=== PATIENT | male | born 1980 | race Hispanic/Latino ===

== ENCOUNTER 2019-08-25 08:10 | Inpatient (IN) | payer OTHER ==
[~2019-08-25] VITALS: Ht 167.6 cm; Wt 75.7 kg
[~2019-08-25 08:10] MED LIST: BENTYL20 MG PO; BIAXIN500 MG PO; DOLUTEGRAVIR PO; KEPPRA1000 MG PO; MYAMBUTOL400 MG PO; NOXAFIL PO; PREZCOBIX PO; TRIUMEG PO; ULTRAM50 MG PO; VASOTEC10 M1 PO; VASOTEC5 MG PO; ZOFRAN ODT4 MG PO; [UNRECOGNIZED DRUG - OTHER]
--- OUTSIDE RECORDS SUMMARY | 2019-08-25 08:13 | XMS REPORT ---
[facility] Address Unknown Phone Unavailable Care Team Providers Care Grade Teacher Name Role Phone Unavailable Unavailable Payers Payer Name Policy Type Policy Number Effective Date Expiration Date Problems This patient has no known problems. Allergies, Adverse Reactions, Alerts Allergy Name Allergy Type Status Severity Reaction(s) Onset Date Inactive Date Treating Clinician Comments No Known Allergies DA Active U 2015-12-17 00:00:00 Medications This patient has no known medications. Encounters Start Date/Time End Date/Time Encounter Type Admission Type Attending [facility] Care Department Encounter ID 2018-10-15 00:00:00 2018-10-15 00:00:00 Outpatient [facility] [id number] 2018-09-22 00:00:00 2018-09-22 00:00:00 Outpatient [facility] [id number] 2018-09-08 00:00:00 2018-09-08 00:00:00 Outpatient [facility] [id number] 2018-09-03 15:26:43 2018-09-03 15:26:43 Outpatient [facility] [id number] 2018-07-14 00:00:00 2018-07-14 00:00:00 Outpatient [facility] [id number] 2018-06-01 00:00:00 2018-06-01 00:00:00 Outpatient [facility] [id number] 2018-05-19 16:40:10 2018-05-19 16:40:10 Outpatient [facility] [id number] 2018-05-19 00:00:00 2018-05-19 00:00:00 Outpatient [facility] [id number] 2018-04-07 10:28:59 2018-04-07 10:28:59 Outpatient [facility] [id number] 2018-04-02 12:40:58 2018-04-02 12:40:58 Outpatient [facility] [id number] 2018-03-24 08:06:27 2018-03-24 08:06:27 Outpatient [facility] [id number] 2018-03-13 00:00:00 2018-03-13 00:00:00 Outpatient [facility] [id number] 2018-02-27 00:00:00 2018-02-27 00:00:00 Outpatient [facility] [id number] 2018-02-04 14:13:35 2018-02-04 14:13:35 Outpatient [facility] [id number] 2017-12-03 08:42:35 2017-12-03 08:42:35 Outpatient [facility] [id number] 2017-09-25 10:27:58 2017-09-25 10:27:58 Outpatient [facility] [id number] 2017-09-11 10:42:28 2017-09-11 10:42:28 Outpatient [facility] [id number] Results Test Description Test Time Test Comments Text Results Atomic Results Result Comments CD4 HELPER T-LYMPH 2019-06-23 15:09:00 CD4 LYMPHOCYTES (test code=CD4L) 11.8 % 30.8-58.5 RBC (test code=RBCLC) 4.32 x10E6/uL 4.14-5.80 HGB (test code=HGBLC) 11.5 g/dL 13.0-17.7 HCT (test code=HCTLC) 35.7 % 37.5-51.0 MCV (test code=MCVLC) 83 fL 79-97 MCH (test code=MCHLC) 26.6 pg 26.6-33.0 MCHC (test code=MCHCLC) 32.2 g/dL 31.5-35.7 RDW (test code=RDWLC) 16.8 % 12.3-15.4 PLT (test code=PLTLC) 104 x10E3/uL 150-450 NEUT % (test code=NT%LC) 65 % Not Estab. LYMPH % (test code=LY%LC) 24 % Not Estab. MONO % (test code=MO%LC) 9 % Not Estab. EOS % (test code=EO%LC) 2 % Not Estab. BASO % (test code=BA%LC) 0 % Not Estab. NEUT # (test code=NT#LC) 4.4 x10E3/uL 1.4-7.0 LYMPH # (test code=LY#LC) 1.6 x10E3/uL 0.7-3.1 MONO # (test code=MO#LC) 0.6 x10E3/uL 0.1-0.9 EOS # (test code=EO#LC) 0.1 x10E3/uL 0.0-0.4 BASO # (test code=BA#LC) 0.0 x10E3/uL 0.0-0.2 ABSOLUTE CD4+ CELLS (test code=CD4A) 189 /uL 359-1519 WBC CD4 (test code=WBCCD) 6.8 x10E3/uL 3.4-10.8 BASIC METABOLIC [id number] 05:39:00* Test Item Value Reference Range Comments SODIUM (test code=NA) 144 mmol/L 136-145 POTASSIUM (test code=K) 4.3 mmol/L 3.5-5.1 CHLORIDE (test code=CL) 118.0 mmol/L 98-107 CARBON DIOXIDE (test code=CO2) 20.0 mmol/L 21-32 ANION GAP (test code=GAP) 10.3 10-20 GLUCOSE (test code=GLU) 86 mg/dL 74-106 BLOOD UREA NITROGEN (test code=BUN) 21 mg/dL 7-18 GLOMERULAR FILTRATION RATE (test code=GFR) 57 mL/min >=60 Estimated GFR by using Modified MDRD formula.Chronic kidney disease is defined as either kidney damageor GFR <60 mL/min/1.73 m2 for >3 months. CREATININE (test code=CREAT) 1.40 mg/dL 0.7-1.3 BUN/CREATININE RATIO (test code=BUN/CREA) 15.2 10-20 CALCIUM (test code=CA) 8.7 mg/dL 8.5-10.1 BASIC METABOLIC [id number] 05:29:00* Test Item Value Reference Range Comments SODIUM (test code=NA) 144 mmol/L 136-145 POTASSIUM (test code=K) 4.3 mmol/L 3.5-5.1 CHLORIDE (test code=CL) 118.0 mmol/L 98-107 CARBON DIOXIDE (test code=CO2) mmol/L 21-32 ANION GAP (test code=GAP) 10-20 GLUCOSE (test code=GLU) mg/dL 74-106 BLOOD UREA NITROGEN (test code=BUN) mg/dL 7-18 GLOMERULAR FILTRATION RATE (test code=GFR) mL/min >=60 CREATININE (test code=CREAT) mg/dL 0.7-1.3 BUN/CREATININE RATIO (test code=BUN/CREA) 10-20 CALCIUM (test code=CA) mg/dL 8.5-10.1 - US RETROPERITONEAL [id number] 20:37:00 Name: ASHLEE BARNETT [facility] : 1980 Age/S: 39 / M [address] [facility] Unit #: [id number] Loc: [place] [address] Phys: Donal Yanez NP Acct: [id number] Dis Date: Status: ADM IN PHONE #: [phone] Exam Date: 06/21/20192013 FAX #: [phone] Reason: JEROME EXAMS: CPT CODE: [id number] US RETROPERITONEAL COM [id number] REASON FOR EXAM: JEROME EXAM ORDER DATE: 06/21/2019 6:49 PM Attending David: Donal Yanez NP PROCEDURE: - US RETROPERITONEAL COM FINDINGS: The right kidney measures 9.8 x 5.6 cm. The cross-sectional thickness of the right renal cortex measured 1.4 cm. The left kidney measures 11 x 4.9 cm. The cross-sectional thickness of the left renal cortex measured 1.4 cm. There is no evidence of hydronephrosis. The urinary bladder is partially contracted IMPRESSION: 3 cm left renal cyst. 0.6 cm nonobstructing left renal stone. Moderately echogenic right kidney and mildly echogenic left kidney suggestive of chronic medical renal disease at 2036 Reported and signed by: Jayjay Ortiz M.D. CC: Belkis Miranda MD; Donal Yanez NP Technologist: Tuan Mccormick Trnscb Date/Time: 06/21/2019 (2036) Alvin Orig Print D/T: S: 06/21/2019 (2039) Probe: PAGE 1 Signed Report URINALYSIS [id number] 04:13:00* Test Item Value Reference Range Comments UA COLOR (test code=COLU) YELLOW YELLOW UA APPEARANCE (test code=APPU) CLEAR CLEAR UA GLUCOSE DIPSTICK (test code=DGLUU) NEGATIVE mg/dL NEGATIVE UA BILIRUBIN DIPSTICK (test code=BILU) NEGATIVE mg/dL NEGATIVE UA KETONE DIPSTICK (test code=KETU) NEGATIVE mg/dL NEGATIVE UA SPECIFIC GRAVITY (test code=SGU) 1.022 1.001-1.035 UA BLOOD DIPSTICK (test code=SRIDHAR) 0.03 mg/dL (Trace) mg/dL NEGATIVE UA PH DIPSTICK (test code=ADAMARIS) 5.5 5.0-8.0 UA PROTEIN DIPSTICK (test code=PROU) 100 (2+) mg/dL NEGATIVE UA UROBILINIOGEN DIPSTICK (test code=URO) Normal mg/dL NEGATIVE UA NITRITE DIPSTICK (test code=NIKOLE) NEGATIVE NEGATIVE UA LEUKOCYTE ESTERASE W REFLEX (test code=LEUUR) NEGATIVE Juliano/uL NEGATIVE UA WBC (test code=WBCU) 0-5 per HPF 0-5 UA RBC (test code=RBCU) 6-10 #/HPF 0-5 UA EPITHELIAL CELLS (test code=EPIU) Rare (0-1/hpf) per HPF FEW UA BACTERIA (test code=BACU) NONE SEEN #/HPF NONE UA MUCUS (test code=MUCU) FEW #/LPF FEW Urine Source? Clean [id number] 01:56:00* Test Item Value Reference Range Comments D-DIMER (test code=DDIMER) 391.00 ng/mLFEU 0-500 Clinical Cut-off value for D- Dimer is 500 ng/mL FEU. Comment: The [employer] D-Dimer assay is intended for use asan aid in the diagnosis of venous thromboembolism (VTE)[deep vein thrombosis (DVT) or pulmonary embolism (PE)].The measurement of D-Dimer should not be used as an aid inthe diagnosis of VTE, in patient with: -Therapeutic dose anticoagulant therapy for >24 hours -Fibrinolytic therapy within previous 7 days -Trauma or surgery within previous 4 weeks -Disseminated malignancies - Aortic aneurysm -Sepsis, severe infections, pneumonia, severe skin infections -Liver cirrhosis - COMPREHENSIVE METABOLIC [id number] 01:51:00* Test Item Value Reference Range Comments SODIUM (test code=NA) 139 mmol/L 136-145 POTASSIUM (test code=K) 4.2 mmol/L 3.5-5.1 CHLORIDE (test code=CL) 111.0 mmol/L 98-107 CARBON DIOXIDE (test code=CO2) 23.0 mmol/L 21-32 ANION GAP (test code=GAP) 9.2 10-20 GLUCOSE (test code=GLU) 101 mg/dL 74-106 BLOOD UREA NITROGEN (test code=BUN) 38 mg/dL 7-18 GLOMERULAR FILTRATION RATE (test code=GFR) 31 mL/min >=60 Estimated GFR by using Modified MDRD formula.Chronic kidney disease is defined as either kidney damageor GFR <60 mL/min/1.73 m2 for >3 months. CREATININE (test code=CREAT) 2.40 mg/dL 0.7-1.3 BUN/CREATININE RATIO (test code=BUN/CREA) 16.2 10-20 TOTAL PROTEIN (test code=PROT) 8.3 gram/dL 6.4-8.2 ALBUMIN (test code=ALB) 3.3 g/dL 3.4-5.0 GLOBULIN (test code=GLOB) 5.0 gram/dL 2.7-4.2 ALBUMIN/GLOBULIN RATIO (test code=A/G) 0.7 0.75-1.50 CALCIUM (test code=CA) 8.9 mg/dL 8.5-10.1 BILIRUBIN TOTAL (test code=BILT) 0.40 mg/dL 0.0-1.0 SGOT/AST (test code=AST) 20 IUnit/L 15-37 SGPT/ALT (test code=ALT) 24 IUnit/L 12-78 ALKALINE PHOSPHATASE TOTAL (test code=ALKP) 118 IUnit/L 45-117 Note change in reference range due to change in reagent. COMPREHENSIVE METABOLIC [id number] 01:50:00* Test Item Value Reference Range Comments SODIUM (test code=NA) 139 mmol/L 136-145 POTASSIUM (test code=K) 4.2 mmol/L 3.5-5.1 CHLORIDE (test code=CL) 111.0 mmol/L 98-107 CARBON DIOXIDE (test code=CO2) mmol/L 21-32 ANION GAP (test code=GAP) 10-20 GLUCOSE (test code=GLU) mg/dL 74-106 BLOOD UREA NITROGEN (test code=BUN) mg/dL 7-18 GLOMERULAR FILTRATION RATE (test code=GFR) mL/min >=60 CREATININE (test code=CREAT) mg/dL 0.7-1.3 BUN/CREATININE RATIO (test code=BUN/CREA) 10-20 TOTAL PROTEIN (test code=PROT) gram/dL 6.4-8.2 ALBUMIN (test code=ALB) g/dL 3.4-5.0 GLOBULIN (test code=GLOB) gram/dL 2.7-4.2 ALBUMIN/GLOBULIN RATIO (test code=A/G) 0.75-1.50 CALCIUM (test code=CA) mg/dL 8.5-10.1 BILIRUBIN TOTAL (test code=BILT) mg/dL 0.0-1.0 SGOT/AST (test code=AST) IUnit/L 15-37 SGPT/ALT (test code=ALT) IUnit/L 12-78 ALKALINE PHOSPHATASE TOTAL (test code=ALKP) IUnit/L 45-117 CBC W/AUTO [id number] 01:30:00* Test Item Value Reference Range Comments WHITE BLOOD CELL (test code=WBC) 9.6 K/mm3 4.5-12.5 RED BLOOD CELL (test code=RBC) 4.98 mill/mm3 4.0-5.8 HEMOGLOBIN (test code=HGB) 13.0 gram/dL 13.0-17.5 HEMATOCRIT (test code=HCT) 40.1 % 42.0-52.0 MEAN CELL VOLUME (test code=MCV) 80.5 fL 80-98 MEAN CELL HGB (test code=MCH) 26.1 picogram 27.0-33.0 MEAN CELL HGB CONCETRATION (test code=MCHC) 32.4 gram/dL 33.0-36.0 RED CELL DISTRIBUTION WIDTH (test code=RDW) 15.8 % 11.6-16.2 RED CELL DISTRIBUTION WIDTH SD (test code=RDW-SD) 45.6 fL 37.0-51.0 PLATELET COUNT (test code=PLT) 133 K/mm3 150-450 MEAN PLATELET VOLUME (test code=MPV) 10.8 fL 6.7-11.0 NEUTROPHIL % (test code=NT%) 62.8 % 39.0-69.0 IMMATURE GRANULOCYTE % (test code=IG%) 0.6 % 0.0-5.0 LYMPHOCYTE % (test code=LY%) 23.3 % 25.0-55.0 MONOCYTE % (test code=MO%) 10.8 % 0.0-10.0 EOSINOPHIL % (test code=EO%) 2.2 % 0.0-5.0 BASOPHIL % (test code=BA%) 0.3 % 0.0-1.0 NUCLEATED RBC % (test code=NRBC%) 0.0 % 0-0 NEUTROPHIL # (test code=NT#) 6.00 K/mm3 1.8-7.7 IMMATURE GRANULOCYTE # (test code=IG#) 0.06 x10 3/uL 0-0.03 LYMPHOCYTE # (test code=LY#) 2.23 K/mm3 1.0-5.0 MONOCYTE # (test code=MO#) 1.03 K/mm3 0-0.8 EOSINOPHIL # (test code=EO#) 0.21 K/mm3 0.0-0.5 BASOPHIL # (test code=BA#) 0.03 K/mm3 0.0-0.2 NUCLEATED RBC # (test code=NRBC#) 0.00 K/mm3 0.0-0.1 MANUAL DIFF REQUIRED (test code=MDIFF) NO CBC W/AUTO [id number] 01:27:00* Test Item Value Reference Range Comments WHITE BLOOD CELL (test code=WBC) K/mm3 4.5-12.5 RED BLOOD CELL (test code=RBC) mill/mm3 4.0-5.8 HEMOGLOBIN (test code=HGB) 13.0 gram/dL 13.0-17.5 HEMATOCRIT (test code=HCT) % 42.0-52.0 MEAN CELL VOLUME (test code=MCV) fL 80-98 MEAN CELL HGB (test code=MCH) picogram 27.0-33.0 MEAN CELL HGB CONCETRATION (test code=MCHC) gram/dL 33.0-36.0 RED CELL DISTRIBUTION WIDTH (test code=RDW) % 11.6-16.2 RED CELL DISTRIBUTION WIDTH SD (test code=RDW-SD) fL 37.0-51.0 PLATELET COUNT (test code=PLT) K/mm3 150-450 MEAN PLATELET VOLUME (test code=MPV) fL 6.7-11.0 NEUTROPHIL % (test code=NT%) % 39.0-69.0 IMMATURE GRANULOCYTE % (test code=IG%) % 0.0-5.0 LYMPHOCYTE % (test code=LY%) % 25.0-55.0 MONOCYTE % (test code=MO%) % 0.0-10.0 EOSINOPHIL % (test code=EO%) % 0.0-5.0 BASOPHIL % (test code=BA%) % 0.0-1.0 NEUTROPHIL # (test code=NT#) K/mm3 1.8-7.7 LYMPHOCYTE # (test code=LY#) K/mm3 1.0-5.0 MONOCYTE # (test code=MO#) K/mm3 0-0.8 EOSINOPHIL # (test code=EO#) K/mm3 0.0-0.5 BASOPHIL # (test code=BA#) K/mm3 0.0-0.2 - XR SHOULDER 2 + V [id number] 01:06:00 FAX: Sendy Gutierrez MD [phone] [place]: St: REG Name: Steph WOODASHLEE [facility] : [birth year] Age/S: 39/M [address] [facility] Unit #: [id number] Loc: [place] [address] Phys: Sendy Gutierrez MD Acct: [id number] Dis Date: Status: REG ER PHONE #: [phone] Exam Date: 06/21/2019 0020 FAX #: [phone] Reason: pain EXAMS: CPT CODE: [id number] XR SHOULDER 2 + [place] RT [id number] HISTORY: Pain Location: C3 FINDINGS: 3 images of the right shoulder are provided. No acute fracture, dislocation, or other acute osseous abnormality is d emonstrated. IMPRESSION: 1. No acute f racture. No other acute osseous abnormality. at 0106 Reported and s igned by: Saturnino Brito MD CC: Sendy Gutierrez MD Technologist: Chichi Jarquin Trnscrd Date/Time/By: 06/21/2019 (0106) : By: [email or web address] Orig Print D/T: S: 06/21/2019 (0101) PAGE 1 Signed Report
[2019-08-25] MEDS ORDERED: ACETAMINOPHEN 325 MG TAB ONE (08:59)
[2019-08-25] MEDS ORDERED: KETOROLAC TROMETHAMINE 60 MG/2 ML VIAL ONE (09:00)
[2019-08-25] MEDS ORDERED: ONDANSETRON HCL 4 MG ORAL DISINTEGRATING TAB ONE (09:00)
[2019-08-25] MEDS ORDERED: ONDANSETRON HCL 4 MG ORAL DISINTEGRATING TAB PO ONE (09:30)
--- NOTE | 2019-08-25 09:43 | Diagnostic Imaging Report ---
EXAMINATION: CHEST 2 VIEWS INDICATION: Cough, chest pain COMPARISON: Chest radiograph of 05/09/2017 FINDINGS: LINES/TUBES:None LUNGS:The lung volumes are low. Bilateral multifocal patchy opacities, most notably at the right midlung. PLEURA:No pleural effusion or pneumothorax. MEDIASTINUM:The cardiomediastinal silhouette appears normal in size and shape. BONES/SOFT TISSUES:No acute osseous injury. ABDOMEN:No free air under the diaphragm. IMPRESSION: Low lung volumes with new bilateral multifocal patchy opacities most notably at the right midlung zone, consistent with multifocal pneumonia. Atypical/opportunistic infections are possible in this patient with history of HIV. Signed by: Regan Solis MD on 08/25/2019 9:39 AM
[2019-08-25] MEDS ORDERED: SODIUM CHLORIDE 0.9% 1000ML 1,000 ML IV ONE (09:45)
[2019-08-25] MEDS ORDERED: KETOROLAC TROMETHAMINE 60 MG/2 ML VIAL IM ONE (10:00)
[2019-08-25] MEDS ORDERED: ACETAMINOPHEN 325 MG TAB PO ONE (10:00)
[2019-08-25 10:07] LABS: INFLUENZAE A&B ANTIGEN (RAPID) NEGATIVE (NEGATIVE)
[2019-08-25 10:08] LABS: STREPTOCOCCUS GRP A ANTIGEN NEGATIVE (NEGATIVE)
[2019-08-25] MEDS ORDERED: ALBUTEROL/IPRATROPIUM 3 ML NEB NEB ONE (10:15)
[2019-08-25] MEDS ORDERED: LEVOFLOXACIN 750MG/D5W 150ML 150 ML IV ONE (10:30)
[2019-08-25] MEDS ORDERED: DEXAMETHASONE SOD PHOS 10 MG/1 ML VIAL IV ONE (10:30)
[2019-08-25] MEDS ORDERED: LEVOFLOXACIN 750MG/D5W 150ML IV SCH (11:15)
[2019-08-25 11:17] LABS: BASOPHILS # (AUTO) 0.1 (0.0-0.1); BASOPHILS % 0.3 % (0.0-1.0); EOSINOPHILS # (AUTO) 0.2 (0.0-0.4); EOSINOPHILS % 1.4 % (0.0-6.0); HEMATOCRIT 37.3 % (38.2-49.6); HEMOGLOBIN 11.6 g/dL (14.0-18.0); LYMPHOCYTES # (AUTO) 1.7 (1.0-3.2); LYMPHOCYTES % 11.2 % (18.0-39.1); MEAN CORPUSCULAR HEMOGLOBIN 25.3 pg (28-32); MEAN CORPUSCULAR HGB CONC 31.1 g/dL (31-35); MEAN CORPUSCULAR VOLUME 81.3 fL (81-99); MONOCYTES % 6.5 % (4.4-11.3); NEUTROPHILS # (AUTO) 12.3 (2.1-6.9); NEUTROPHILS % 79.2 % (38.7-80.0); PLATELET COUNT 242 x10e3/uL (140-360); RED BLOOD COUNT 4.59 x10e6/uL (4.3-5.7); RED CELL DISTRIBUTION WIDTH 14.7 % (11.7-14.4)
[2019-08-25] MEDS: SODIUM CHLORIDE 0.9% 1000ML 1,000 ML IV SCH ×2 (11:29→22:47)
[2019-08-25] MEDS ORDERED: TRIMETHOPRIM/SULFAMETHOXAZOLE 160 MG in DEXTROSE 5% 250ML 250 ML IV ONE (11:30)
[2019-08-25 11:35] LABS: ANION GAP 12.8 mmol/L (8-16); CREATININE, SERUM 1.43 mg/dL (0.72-1.25); POTASSIUM 3.8 mmol/L (3.5-5.1)
[2019-08-25] MEDS: IPRATROPIUM BROMIDE 0.02% 2.5 ML NEB NEB SCH ×2 (13:00→20:25)
[2019-08-25 13:58] VITALS: BP 118/75
--- NOTE | 2019-08-25 14:01 | NUR ---
PATIENT ARRIVED ON THE UNIT AT 1214 PER STRETCHER FROM THE ER. PATIENT IS ALERT AND IN STABLE CONDITION WITH NO S/S OF RESPIRATORY DISTRESS. NO PAIN VOICED. IV FLUIDS INFUSING. CONTINUOUS PULSE OX APPLIED. O2 APPLIED AT 3L NC. PATIENT PLACED ON ISOLATION. SKINS INTACT. IV LOCATED TO BILATERAL LEFT AND RIGHT FOREARMS. PRESENT IN ROOM. CALL LIGHT IS WITHIN REACH, PATIENT INSTRUCTED TO CALL FOR ASSISTANCE NEEDED.
[2019-08-25 14:16] VITALS: BP 118/75
--- NOTE | 2019-08-25 14:22 | NUR ---
CONSULT CALLED TO DR. HALE WELL TO INFORM DR. HALE OF SIRS ALERT- AWAITING CALLBACK. PATIENT IS RECEIVING IV FLUIDS WELL IV ANTIBIOTICS.
[2019-08-25] MEDS ORDERED: DARUNAVIR (14:26)
[2019-08-25] MEDS ORDERED: COBICISTAT (14:26)
[2019-08-25] MEDS ORDERED: VITAMIN D250 MCG PO (14:33)
[2019-08-25] MEDS ORDERED: TIVICAY50 MG PO (14:33)
[2019-08-25 16:08] VITALS: BP 120/80
[2019-08-25] MEDS: ALBUTEROL SULF 0.083% NEB SOLN 3 ML NEB NEB SCH ×2 (17:06→20:25)
--- NOTE | 2019-08-25 18:39 | NUR ---
CALL PLACED OUT TO DR. CABRALES REGARDING SIRS ALERT AND SPUTUM CULTURE ORDER. AWAITING CALLBACK.
[2019-08-25] MEDS ORDERED: ACETAMINOPHEN 325 MG TAB PO PRN (18:45)
--- NOTE | 2019-08-25 18:46 | NUR ---
DR. CABRALES ON THE UNIT- SPOKE DR. CABRALES REGARDING SIRS ALERT. NO NEW ORDERS GIVEN. PATIENT ON IV FLUIDS AND IV ANTIBIOTICS. SPUTUM CULTURE ORDER CHANGED FROM INDUCTED TO EXPECTORATED
--- NOTE | 2019-08-25 19:14 | NUR ---
PATIENT IS IN STABLE CONDITION WITH NO S/S OF RESPIRATORY DISTRESS. NO PAIN VOICED. IV FLUIDS INFUSING. PRESENT IN ROOM. CALL LIGHT IS WITHIN REACH, PATIENT INSTRUCTED TO CALL FOR ASSISTANCE NEEDED. REPORT GIVEN TO ONCOMING NURSE.
[2019-08-25 19:58] VITALS: BP 122/70
[2019-08-25 21:10] VITALS: BP 122/70
--- NOTE | 2019-08-25 21:10 | NUR ---
PATIENT IN STABLE CONDITION, NO SIGNS OF RESPIRATORY DISTRESS NOTED. FAMILY MEMBER AT BEDSIDE AND NASAL CANNULA INTACT AND FLOWING AT 3 LITERS. IV FLUIDS ARE RUNNING AT ORDERED RATE AND PATIENT VOICES NO PAIN AT THIS TIME. CONTINUOUS PULSE OX INTACT, BED IN LOWEST POSITION, BOTH SIDE RAILS ARE UP, CALL LIGHT WITHIN REACH, WILL CONTINUE TO MONITOR.
[2019-08-25] MEDS: TRIMETHOPRIM/SULFAMETHOXAZOLE 160 MG in DEXTROSE 5% 250ML 250 ML IV SCH (21:11)
[2019-08-25] MEDS: METHYLPREDNISOLONE SOD SUCC 40 MG/ML VIAL 1ML IV SCH (21:11)
--- NOTE | 2019-08-25 21:45 | NUR ---
INFORMED PATIENT AND THAT THE PATIENT NEEDS TO PROVIDE A SPUTUM SAMPLE ORDERED. BOTH VOICED UNDERSTANDING AND AWAITING SAMPLE WHEN PATIENT IS READY.
[2019-08-26] VITALS (8 sets, daily range): BP systolic 112–153; BP diastolic 58–79
[2019-08-26] MEDS: IPRATROPIUM BROMIDE 0.02% 2.5 ML NEB NEB SCH ×4 (01:03→19:48)
[2019-08-26] MEDS: ALBUTEROL SULF 0.083% NEB SOLN 3 ML NEB NEB SCH ×6 (01:03→19:48)
--- NOTE | 2019-08-26 01:57 | History and Physical ---
HISTORY OF PRESENT ILLNESS: A 39-year-old male with past medical history positive for AIDS, came here with cough and phlegm and fever. He was found to have bilateral pneumonia and hypoxemia, admitted to the hospital. REVIEW OF SYSTEMS: CARDIOVASCULAR: No chest pain or palpitation. RESPIRATORY: He has cough, phlegm, and shortness of breath. GASTROINTESTINAL: No nausea or vomiting. No diarrhea. GENITOURINARY: No frequency or dysuria. ALLERGIES: HE IS NOT ALLERGIC TO ANYTHING. SOCIAL HISTORY: He does not smoke. He does not drink. PAST MEDICAL HISTORY: He has been diagnosed with AIDS when he was younger. PHYSICAL EXAMINATION: VITAL SIGNS: Blood pressure 120/80, temperature 95.9, heart rate 92 per minute, respiratory rate 18 per minute, and oxygen saturation 93%. HEART: Showed regular rhythm. Normal S1 and S2 sound. LUNGS: Show bilateral crackles. ABDOMEN: Soft. EXTREMITIES: Show no evidence of cyanosis or hematoma. LABORATORY STUDIES: On the BMP; sodium 139, potassium 3.8, chloride 103, CO2 of 27, BUN 16, creatinine 1.43, and glucose 99. On the CBC; white blood count 38878, hemoglobin 11.6, hematocrit 37.3, and platelet count 242,000. IMPRESSION: 1. Bilateral pneumonia, most likely secondary to PCP pneumonia. 2. Hypoxemic respiratory failure. 3. Acquired immunodeficiency syndrome. 4. Chronic anemia. 5. Acute versus chronic renal failure. PLAN OF TREATMENT: We are going to continue with oxygen. Continue with Levaquin 750 mg IV daily, normal saline 125 mL an hour, and Bactrim 160 mg IV twice a day. Continue with Tylenol 325 mg q.4 hours as needed for pain or fever, albuterol q.4 hours around the clock, and Atrovent q.6 hours. Continue with Solu-Medrol 60 mg IV twice a day. CBC tomorrow. Consult Dr. Sue of Infectious Diseases. MD RYLEE Martínez/MODL /[id number]
[2019-08-26 06:09] LABS: BASOPHILS % 0.2 % (0.0-1.0); HEMATOCRIT 34.6 % (38.2-49.6); HEMOGLOBIN 10.9 g/dL (14.0-18.0); LYMPHOCYTES # (AUTO) 0.6 (1.0-3.2); LYMPHOCYTES % 4.5 % (18.0-39.1); MEAN CORPUSCULAR HEMOGLOBIN 25.5 pg (28-32); MEAN CORPUSCULAR HGB CONC 31.5 g/dL (31-35); MEAN CORPUSCULAR VOLUME 80.8 fL (81-99); MONOCYTES # (AUTO) 0.2 (0.2-0.8); MONOCYTES % 1.4 % (4.4-11.3); NEUTROPHILS # (AUTO) 12.2 (2.1-6.9); NEUTROPHILS % 92.2 % (38.7-80.0); PLATELET COUNT 247 x10e3/uL (140-360); RED BLOOD COUNT 4.28 x10e6/uL (4.3-5.7); RED CELL DISTRIBUTION WIDTH 14.8 % (11.7-14.4)
--- NOTE | 2019-08-26 06:16 | NUR ---
PATIENT TAKEN AWAY BY RADIOLOGY FOR X-RAY VIA WHEELCHAIR.
[2019-08-26 06:34] LABS: ANION GAP 11.1 mmol/L (8-16); BLOOD UREA NITROGEN 18 mg/dL (7-26); BUN/CREATININE RATIO 15 (6-25); CARBON DIOXIDE 24 mmol/L (22-29); CHLORIDE 110 mmol/L (98-107); CREATININE, SERUM 1.18 mg/dL (0.72-1.25); EST GLOMERULAR FILTRATION RATE > 60 ML/MIN (60-); GLUCOSE 137 mg/dL (74-118); POTASSIUM 4.1 mmol/L (3.5-5.1); SODIUM 141 mmol/L (136-145)
[2019-08-26] MEDS: SODIUM CHLORIDE 0.9% 1000ML 1,000 ML IV SCH ×3 (06:42→23:49)
--- NOTE | 2019-08-26 07:40 | NUR ---
PATIENT IS ALERT AND IN STABLE CONDITION WITH NO S/S OF RESPIRATORY DISTRESS. NO PAIN VOICED. IV FLUIDS INFUSING. CALL LIGHT IS WITHIN REACH OF PATIENT, PATIENT INSTRUCTED TO CALL FOR ASSISTANCE NEEDED.
[2019-08-26] MEDS: METHYLPREDNISOLONE SOD SUCC 40 MG/ML VIAL 1ML IV SCH (08:43)
--- NOTE | 2019-08-26 09:01 | Diagnostic Imaging Report ---
EXAMINATION: CHEST 2 VIEWS INDICATION: Pneumonia COMPARISON: Chest radiograph 08/25/2019 FINDINGS: LINES/TUBES:None LUNGS:The lungs are moderately inflated. Unchanged bilateral diffuse reticulonodular opacities with scattered areas of more focal consolidative opacities. PLEURA:No pleural effusion or pneumothorax. MEDIASTINUM:The cardiomediastinal silhouette appears unchanged in size and shape. BONES/SOFT TISSUES:No acute osseous injury. ABDOMEN:No free air under the diaphragm. IMPRESSION: Predominantly diffuse reticular nodular opacity concerning for atypical or opportunistic infection in this patient with HIV. Recommend chest CT for further evaluation. Signed by: Regan Solis MD on 08/26/2019 8:58 AM
[2019-08-26] MEDS: TRIMETHOPRIM/SULFAMETHOXAZOLE 160 MG in DEXTROSE 5% 250ML 250 ML IV SCH ×2 (10:03→17:46)
[2019-08-26] MEDS ORDERED: LEVOFLOXACIN 750MG/D5W 150ML 150 ML IV SCH (11:00)
[2019-08-26] MEDS: AZITHROMYCIN 500MG/NS 250 ML 250 ML IV SCH (14:09)
--- NOTE | 2019-08-26 15:43 | Progress Note ---
DATE: Internal Medicine Progress Note SUBJECTIVE: The patient is feeling better. PHYSICAL EXAMINATION: VITAL SIGNS: Blood pressure 112/58, temperature 96.9, heart rate 91 per minute, respiratory rate 18 per minute, oxygen saturation 93%. HEART: Showed regular rhythm. Normal S1, S2 sound. LUNGS: Clear bilaterally. Few crackles less than yesterday. EXTREMITIES: Show no evidence of cyanosis or hematoma. ABDOMEN: Nondistended. LABORATORY STUDIES: On the CBC; white blood count 13.21, hemoglobin 10.9, hematocrit 34.6, platelet count 247,000. On the BMP; sodium 141, potassium 4.1, chloride 110, CO2 24, BUN 18, creatinine 1.18, glucose 137, lactic acid 1.6, LDH 180. Influenza A and B negative. Group A Streptococcus screen completely negative. On the chest x-ray showed diffuse reticular nodular opacity concerning for atypical or opportunistic infections in this patient with HIV. IMPRESSION: 1. Bilateral PCP pneumonia. 2. Hypoxia respiratory failure. 3. Acquired immunodeficiency syndrome. 4. Anemia of chronic disease. 5. Acute renal failure. PLAN OF TREATMENT: We are going to continue with Zithromax 500 mg IV daily, ceftriaxone 1 g IV once a day. Continue normal saline at 125 mL an hour, continue Bactrim 160 mg IV q.8 hours, Tylenol 325 mg q.4 hours as needed, albuterol q.4 hours, Atrovent q.6 hours, prednisone 40 mg twice a day and we are going to wean him down the prednisone slowly. The patient is doing better today. Dr. Sue has been consulted from the Infectious Disease point of view. Dr. Wheat will cover for me tomorrow. Dr. Castillo is on-call for me on the weekend. Tentative discharge next week. Dr. Wheat will cover for me next week also until Friday night. MD RYLEE Martínez/DANNY /[id number]
--- NOTE | 2019-08-26 15:53 | Consultation ---
DATE OF CONSULTATION: REASON FOR CONSULTATION: HIV, AIDS, and pneumonia. HISTORY OF PRESENT ILLNESS: This patient, who is a 39-year-old male, history of HIV for several years. He has been taken care by his medication. He does not have it with him yet, but he is going to it. He is telling me he does know what his CD4 cell count is, but his is okay. The patient comes in with 5 days history of fever, chills, shortness of breath, and cough. The patient is being admitted. I cannot access the medical record electronically because the system is down. PAST MEDICAL HISTORY: HIV and AIDS. PAST SURGICAL HISTORY: Denies. ALLERGIES: NKA. SOCIAL HISTORY: There is no smoking, drug abuse, or alcohol abuse. FAMILY HISTORY: Noncontributory. REVIEW OF SYSTEMS: At the present time, in addition to the shortness of breath and cough, HEENT: Negative. PULMONARY: Negative. CARDIAC: Negative. : Negative. GI: Negative. SKIN: There is no other rash. PHYSICAL EXAMINATION: GENERAL: He is currently alert and oriented. Does not seem to be in acute distress. VITAL SIGNS: Stable, currently afebrile. HEENT: He is not icteric. NECK: Supple. CHEST: Few crackles bilateral. HEART: S1 and S2. No S3, S4, or murmurs. ABDOMEN: Soft. Bowel sounds present. No tenderness. No hepatosplenomegaly. EXTREMITIES: No edema. SKIN: No rash. IMPRESSION: 1. Pneumonia. Chest x-ray on the patient's presentation consistent with PCP pneumonia. We will put him on Bactrim DS 2 p.o. q.8, prednisone 40 mg p.o. b.i.d. for 5 days, then 40 mg p.o. daily for 5 days, and then 20 mg p.o. daily for 11 days. 2. Obtain CD4 cell count. 3. We will also obtain sputum for AFB induced x3 samples. 4. Continue his anti-retroviral medication. 5. Reassess in the morning. 6. The patient seems hypoxemic. He is on 2 L of oxygen. ABG on room air apparently was ordered, but not done yet. 7. Discussed with medical team. 8. Discussed with the patient at length. We will follow with you. MD MARTHA Miller /[id number]
--- NOTE | 2019-08-26 19:10 | NUR ---
RN CALLED LAB TO VERIFY AFB ORDERS RECEIVED FOR TODAY, TOMORROW, AND 08/28. ORDER TO HAVE AFB SPUTUM INDUCED BY NORMAL SALINE. RN CALLED PIPE WASHER SURVEILLANCE SENSOR OPERATOR TO INFORM OF AFB SAMPLE AND INFORMED SURVEILLANCE SENSOR OPERATOR OF SPUTUM SAMPLE BEING AN INDUCE ORDER.
--- NOTE | 2019-08-26 19:14 | NUR ---
PATIENT IS ALERT AND IN STABLE CONDITION WITH NO S/S OF RESPIRATORY DISTRESS. NO PAIN VOICED. IV ANTIBIOTIC INFUSING. CALL LIGHT IS WITHIN REACH OF PATIENT, PATIENT INSTRUCTED TO CALL FOR ASSISTANCE NEEDED. REPORT GIVEN TO ONCOMING NURSE.
[2019-08-26] MEDS ORDERED: SODIUM CHLORIDE 3% FOR INHALATION 15 ML NEB IH ONE (20:15)
--- NOTE | 2019-08-26 21:15 | NUR ---
RESPIRATORY HAS COLLECTED INDUCED SPUTUM CULTURE FROM PATIENT, RESULTS ARE PENDING.
[2019-08-26] MEDS: CEFTRIAXONE SOD 1 GM/NS 50 ML 50 ML IV SCH (21:25)
[2019-08-27] VITALS (8 sets, daily range): BP systolic 98–141; BP diastolic 57–79
[2019-08-27] MEDS: IPRATROPIUM BROMIDE 0.02% 2.5 ML NEB NEB SCH ×4 (00:07→19:46)
[2019-08-27] MEDS: ALBUTEROL SULF 0.083% NEB SOLN 3 ML NEB NEB SCH ×6 (00:07→19:46)
[2019-08-27] MEDS: TRIMETHOPRIM/SULFAMETHOXAZOLE 160 MG in DEXTROSE 5% 250ML 250 ML IV SCH ×3 (03:00→18:34)
[2019-08-27] MEDS: SODIUM CHLORIDE 0.9% 1000ML 1,000 ML IV SCH ×3 (03:06→23:35)
[2019-08-27 06:52] LABS: HEMATOCRIT 32.6 % (38.2-49.6); HEMOGLOBIN 10.3 g/dL (14.0-18.0); LYMPHOCYTES # (AUTO) 0.7 (1.0-3.2); LYMPHOCYTES % 3.3 % (18.0-39.1); MEAN CORPUSCULAR HEMOGLOBIN 25.6 pg (28-32); MEAN CORPUSCULAR HGB CONC 31.6 g/dL (31-35); MEAN CORPUSCULAR VOLUME 80.9 fL (81-99); MONOCYTES # (AUTO) 0.6 (0.2-0.8); MONOCYTES % 2.7 % (4.4-11.3); NEUTROPHILS # (AUTO) 19.3 (2.1-6.9); PLATELET COUNT 291 x10e3/uL (140-360); RED BLOOD COUNT 4.03 x10e6/uL (4.3-5.7); RED CELL DISTRIBUTION WIDTH 15.5 % (11.7-14.4)
[2019-08-27 07:15] LABS: ANION GAP 11.4 mmol/L (8-16); CALCIUM 9.3 mg/dL (8.4-10.2); CREATININE, SERUM 1.35 mg/dL (0.72-1.25); POTASSIUM 4.4 mmol/L (3.5-5.1)
[2019-08-27] MEDS: PREDNISONE 10 MG TAB PO SCH ×2 (09:13→17:01)
--- NOTE | 2019-08-27 11:33 | Progress Note ---
DATE: 08/27/2019 I am covering for Dr. Marie. SUBJECTIVE: Mr. Ryder is a 39-year-old male with history of HIV, came to the emergency room complaining of cough, fever, phlegm, and low oxygen. He was found to have bilateral pneumonia, started on IV antibiotics, on O2 nasal cannula. Infectious Disease is following the patient with us. PHYSICAL EXAMINATION: GENERAL: Today, he is awake and alert. He is feeling better. VITAL SIGNS: Temperature is 96.9, blood pressure 133/79. HEART: Regular rate. LUNGS: Decreased breath sounds bilaterally. ABDOMEN: Distended and soft. LABORATORY DATA: On the blood work, white count is 20.99, hemoglobin is 10.3, hematocrit 32.6. Potassium is 4.4, creatinine is 0.35. Glucose is 164. CD3, CD4 cells and CD4 count is pending. Influenza negative. Group A Strep screening was negative. Blood culture so far negative. AFBs are pending. Chest x-ray done on the shows predominantly diffuse reticular nodular opacities concerning for atypical or opportunistic infection in this HIV patient. Recommend a chest CT for further evaluation. ASSESSMENT: 1. Bilateral PCP pneumonia. 2. Hypoxic respiratory failure. 3. Acquired immunodeficiency syndrome. 4. Acute renal failure. 5. Anemia. PLAN: At present time is to continue IV antibiotics with Zithromax and Rocephin. He is also on Bactrim IV every 8 hours. Continue Tylenol for fever. Neb treatments with albuterol and Atrovent. Prednisone 40 mg twice a day. We are awaiting culture results and CD4 count. Continue O2 nasal cannula as needed. All this was discussed with the patient. All questions were answered to satisfaction. MD KARUNA Atkins/MODL /[id number]
[2019-08-27] MEDS: AZITHROMYCIN 500MG/NS 250 ML 250 ML IV SCH (14:00)
--- NOTE | 2019-08-27 19:15 | NUR ---
RECEIVED REPORT FROM PREVIOUS NURSE. CALL LIGHT WITHIN REACH. PATIENT IN BED.
[2019-08-27] MEDS: CEFTRIAXONE SOD 1 GM/NS 50 ML 50 ML IV SCH (21:26)
[2019-08-28] VITALS (8 sets, daily range): BP systolic 118–162; BP diastolic 57–93
[2019-08-28] MEDS: IPRATROPIUM BROMIDE 0.02% 2.5 ML NEB NEB SCH ×4 (00:02→19:00)
[2019-08-28] MEDS: ALBUTEROL SULF 0.083% NEB SOLN 3 ML NEB NEB SCH ×6 (00:02→19:00)
[2019-08-28] MEDS: TRIMETHOPRIM/SULFAMETHOXAZOLE 160 MG in DEXTROSE 5% 250ML 250 ML IV SCH ×3 (02:14→18:01)
[2019-08-28] MEDS: SODIUM CHLORIDE 0.9% 1000ML 1,000 ML IV SCH ×2 (03:06→11:36)
--- NOTE | 2019-08-28 06:47 | NUR ---
Gave report to oncoming nurse. Call light within reach. patient in bed. at bedside
[2019-08-28] MEDS ORDERED: PREDNISONE 20 MG TAB PO SCH (09:00)
[2019-08-28] MEDS: PREDNISONE 10 MG TAB PO SCH ×2 (10:12→18:01)
[2019-08-28] MEDS: AZITHROMYCIN 500MG/NS 250 ML 250 ML IV SCH (14:37)
--- NOTE | 2019-08-28 15:51 | Diagnostic Imaging Report ---
EXAMINATION: CHEST SINGLE (PORTABLE) INDICATION: Pneumonia COMPARISON: Chest radiograph 08/26/2019 FINDINGS: LINES/TUBES:None LUNGS:Lower lung volume. Unchanged bilateral diffuse reticulonodular opacities with scattered areas of more focal consolidative opacities. PLEURA:No pleural effusion or pneumothorax. MEDIASTINUM:The cardiomediastinal silhouette appears unchanged in size and shape. BONES/SOFT TISSUES:No acute osseous injury. ABDOMEN:No free air under the diaphragm. IMPRESSION: Unchanged diffuse reticular nodular opacity is concerning for atypical pneumonia. Signed by: Harvey Boswell MD on 08/28/2019 3:47 PM
--- NOTE | 2019-08-28 18:32 | Progress Note ---
DATE: SUBJECTIVE: Mr. Ryder is feeling better. Breathing is better. Cough is better. REVIEW OF SYSTEMS: Otherwise unremarkable. PHYSICAL EXAMINATION: GENERAL: He is currently alert, oriented, does not seem to be in acute distress. VITAL SIGNS: Stable. Currently afebrile. HEENT: He is not icteric. NECK: Supple. CHEST: Clear. HEART: S1 and S2. No murmurs. ABDOMEN: Soft. IMPRESSION: Pneumonia, probably PCP, community-acquired, human immunodeficiency viruses and acquired immune deficiency syndrome. Currently on Bactrim, Rocephin, and azithromycin. PCP is suspicious, blood AFB doubtful, but we are getting sputum for AFB x3. Human immunodeficiency viruses and acquired immune deficiency syndrome. Continue his anti-retroviral medication, was still waiting what does he take at the house. Leukocytosis is from due to steroid. We will follow. MD RAMON Miller/DANNY /[id number]
[2019-08-28] MEDS: CEFTRIAXONE SOD 1 GM/NS 50 ML 50 ML IV SCH (20:57)
[2019-08-29] VITALS (8 sets, daily range): BP systolic 134–155; BP diastolic 76–99
[2019-08-29] MEDS: TRIMETHOPRIM/SULFAMETHOXAZOLE 160 MG in DEXTROSE 5% 250ML 250 ML IV SCH ×4 (02:05→18:57)
[2019-08-29] MEDS: ALBUTEROL SULF 0.083% NEB SOLN 3 ML NEB NEB SCH ×6 (04:15→19:38)
[2019-08-29] MEDS: IPRATROPIUM BROMIDE 0.02% 2.5 ML NEB NEB SCH ×4 (06:55→19:38)
--- NOTE | 2019-08-29 07:02 | NUR ---
GAVE REPORT TO ONCOMING NURSE. PATIENT IN BED. CALL LIGHT WITHIN REACH. AT BEDSIDE
[2019-08-29 07:10] LABS: BASOPHILS % 0.3 % (0.0-1.0); HEMATOCRIT 34.9 % (38.2-49.6); HEMOGLOBIN 11.3 g/dL (14.0-18.0); LYMPHOCYTES # (AUTO) 1.1 (1.0-3.2); LYMPHOCYTES % 7.4 % (18.0-39.1); MEAN CORPUSCULAR HEMOGLOBIN 25.9 pg (28-32); MEAN CORPUSCULAR HGB CONC 32.4 g/dL (31-35); MEAN CORPUSCULAR VOLUME 79.9 fL (81-99); MONOCYTES # (AUTO) 0.8 (0.2-0.8); MONOCYTES % 5.1 % (4.4-11.3); NEUTROPHILS # (AUTO) 12.5 (2.1-6.9); NEUTROPHILS % 81.9 % (38.7-80.0); PLATELET COUNT 295 x10e3/uL (140-360); RED BLOOD COUNT 4.37 x10e6/uL (4.3-5.7); RED CELL DISTRIBUTION WIDTH 15.8 % (11.7-14.4)
[2019-08-29 07:45] LABS: ALANINE AMINOTRANSFERASE 20 IU/L (0-55); ALBUMIN 2.3 g/dL (3.5-5.0); ALBUMIN/GLOBULIN RATIO 0.6 (0.8-2.0); ALKALINE PHOSPHATASE 125 IU/L (40-150); ANION GAP 12.3 mmol/L (8-16); BLOOD UREA NITROGEN 20 mg/dL (7-26); BUN/CREATININE RATIO 17 (6-25); CARBON DIOXIDE 25 mmol/L (22-29); CHLORIDE 108 mmol/L (98-107); CREATININE, SERUM 1.15 mg/dL (0.72-1.25); EST GLOMERULAR FILTRATION RATE > 60 ML/MIN (60-); GLUCOSE 113 mg/dL (74-118); POTASSIUM 4.3 mmol/L (3.5-5.1); SODIUM 141 mmol/L (136-145)
[2019-08-29] MEDS: PREDNISONE 10 MG TAB PO SCH ×2 (08:48→16:53)
--- NOTE | 2019-08-29 14:50 | NUR ---
Visit made by the Spiritual Care Department Pastoral Visitor, Mateo Eugene. PV provided pastoral presence, hospitality, and supportive listening. Pastoral Visitor informed pt/family of the scope of [facility] and availability. LENA BOWEN Qc Manager Spiritual Care Department O: [phone] Pager: [phone] ([phone] number calling from)
[2019-08-29] MEDS: AZITHROMYCIN 500MG/NS 250 ML 250 ML IV SCH (15:00)
--- NOTE | 2019-08-29 16:00 | NUR ---
Bilateral forearm IV started leaking and both removed. New IV started to right hand 20g and well tolerated by pt. Denies SOB at this time.
--- NOTE | 2019-08-29 19:10 | NUR ---
Received report from previous nurse. Call light within reach. Patient in bed.
[2019-08-29] MEDS: CEFTRIAXONE SOD 1 GM/NS 50 ML 50 ML IV SCH (20:36)
[2019-08-30] VITALS: BP 137/84
[2019-08-30] MEDS: IPRATROPIUM BROMIDE 0.02% 2.5 ML NEB NEB SCH ×3 (00:08→11:31)
[2019-08-30] MEDS: ALBUTEROL SULF 0.083% NEB SOLN 3 ML NEB NEB SCH ×4 (00:08→11:31)
[2019-08-30] MEDS: TRIMETHOPRIM/SULFAMETHOXAZOLE 160 MG in DEXTROSE 5% 250ML 250 ML IV SCH ×2 (02:01→12:50)
[2019-08-30 04:00] VITALS: BP 134/79
--- NOTE | 2019-08-30 07:00 | NUR ---
received am report and rounds done. pt is alert resting in bed, no s/s of distress. call light within reach and instructed pt to call RN for help. is at the bedside
--- NOTE | 2019-08-30 07:25 | NUR ---
Gave report to oncoming nurse. call light within reach. patient in bed. at bedside
[2019-08-30 07:43] VITALS: BP 142/87
--- NOTE | 2019-08-30 09:44 | Progress Note ---
DATE: 08/30/2019 I am covering for Dr. Marie. SUBJECTIVE: Mr. Ryder is a 39-year-old male with history of AIDS, came to the emergency room complaining of cough, fever, phlegm, and low oxygen. He was found to have bilateral pneumonia, started on IV antibiotics. AFBs ordered x3 are pending. PHYSICAL EXAMINATION: GENERAL: Today, he is awake and alert. He states he is feeling better. VITAL SIGNS: Temperature is 96.6 and blood pressure 142/87. HEART: Regular rate. LUNGS: Poor inspiratory effort. ABDOMEN: Soft. LABORATORY DATA: On the blood work; white count is 15.22, hemoglobin is 11.3, and hematocrit is 34.9. Potassium 4.3, creatinine is 1.15, and glucose is 113. Influenza and group B Streptococcus negative. CD4 count is pending. Blood culture negative. Throat culture negative. AFBs are all pending. Chest x-ray done on shows unchanged diffuse reticulonodular opacities concerning for atypical pneumonia. ASSESSMENT: 1. Bilateral pneumonia probably Pneumocystis pneumonia. 2. Hypoxic respiratory failure, improving. 3. Acquired immunodeficiency syndrome. 4. Acute renal failure, resolved. 5. Anemia. PLAN: At the present time is to continue on antiviral treatment. Continue Bactrim, Rocephin, and azithromycin. AFBs are still pending. White count is elevated probably due to the prednisone he is receiving. Continue to monitor CBC. All this was discussed with the patient. All questions were answered to satisfaction. MD KARUNA Atkins/DANNY /[id number]
[2019-08-30 09:52] VITALS: BP 142/87
[2019-08-30] MEDS: PREDNISONE 10 MG TAB PO SCH (10:00)
--- NOTE | 2019-08-30 10:41 | NUR ---
CLEARED BY ID FOR DC HOME TODAY ON PO ABX NURSE AWARE AND WILL CALL DR VASQUEZ (COVERING FOR DR CABRALES)
--- NOTE | 2019-08-30 10:45 | NUR ---
DR. HALE HAS CLEARED PT TO GO HOME ON PO BACTRIM, PAGED DR. VASQUEZ WHO IS COVERING FOR KERON. WAITING FOR CALL BACK
[2019-08-30 11:20] VITALS: BP 137/83
--- NOTE | 2019-08-30 12:40 | Progress Note ---
DATE: SUBJECTIVE: Mr. Aleksey Salgado is feeling better. Breathing is better. REVIEW OF SYSTEMS: HEENT: Negative. PULMONARY: Negative. CARDIAC: Negative. PHYSICAL EXAMINATION: GENERAL: He is currently alert, oriented, does not seem to be in acute distress. VITAL SIGNS: Stable, afebrile. HEENT: He is not icteric. NECK: Supple. CHEST: Clear. HEART: S1 and S2. No murmur. ABDOMEN: Soft. Bowel sounds present. No tenderness. EXTREMITIES: No edema. IMPRESSION: 1. Most probably PCP pneumonia. Doing better with Bactrim, could be discharged to home on Bactrim DS two p.o. q.8 for three weeks, then one p.o. daily. Follow up as an outpatient. 2. History of human immunodeficiency virus. Continue all his medication. 3. Discussed with the patient, discussed with medical team. MD RAMON Miller/DANNY /[id number]
[2019-08-30 15:08] VITALS: BP 135/95
--- NOTE | 2019-08-30 17:32 | NUR ---
Nutrition Screen Note RD Recommendation for Physician: -Continue regular diet Plan of Care: RD following, monitoring for tolerance and adequacy Nutrition reason for involvement: Length of stay Primary Diagnose(s): HIV, pneumonia PMH: AIDS Ht: 66 in Wt:167 lb BMI:27 kg/m2 IBW:[address] Assessment: (08/30/19 Chart reviewed. Labs and meds reviewed. Pt is a 39 year old male admitted with pneumonia and HIV. Pt stated he has been eating all of his meals. Per documentation, pt has been consuming 50-100% of meals during admission. Pt is unsure of his usual wt or if he had any recent wt changes. Pt currently has a wt of 167 lbs in chart. No N/V/D/C reported and no chewing/swallowing issues. Current Diet: Regular Malnutrition Evaluation (08/30/19) The patient does not meet criteria for a specified degree of malnutrition at this time. Will re-evaluate at follow-up as appropriate. Diet Education Needs Assessment: Diet education not indicated, pt is on a regular diet Nutrition Care Level: low Signed: Madai Bagley, RD, LD
[2019-09-01] MEDS ORDERED: PREDNISONE 20 MG TAB PO SCH (09:00)
== END 2019-08-30 15:43 | disposition home or self-care (01) | DRG 974 ==
LOC: ER 08:10 → ERHOLD 11:21 → MED/SURG3 12:20
PROVIDERS: ADMIT Internal Medicine; ATTEND Internal Medicine
DX: B20 Human immunodeficiency virus [HIV] disease (principal); B59 Pneumocystosis; J96.91 Respiratory failure, unspecified with hypoxia; N17.9 Acute kidney failure, unspecified; D63.8 Anemia in other chronic diseases classified elsewhere; Z87.891 Personal history of nicotine dependence
CPT/HCPCS: 36415; 71045; 71046; 80048; 80053; 83518; 83605; 83615; 85025; 86361; 86480; 87040; 87070; 87116; 87206; 87400; 93005; 94640; 96361; 99284; J0456; J0696; J1100; J1885; J2920; J7030; J7512; Q0162

== ENCOUNTER 2020-03-02 10:35 | Emergency (ER) | payer OTHER ==
[~2020-03-02] VITALS: Ht 167.6 cm; Wt 75.7 kg
[~2020-03-02 10:35] MED LIST changes: +COBICISTAT; +DARUNAVIR; +TIVICAY50 MG PO; +VITAMIN D250 MCG PO
--- OUTSIDE RECORDS SUMMARY | 2020-03-02 10:39 | XMS REPORT | Clinical Summary ---
Author Author [facility] ict Organization [facility] ict Address Unknown Phone Unavailable Care Team Providers Care Construction Analyst Name Role Phone Parth Guzman MD PCP Allergies No Known Allergies Medications End Date Status Medication Sig Dispensed Refills Start Date Active enalapril (VASOTEC) 10 mg Take 1 tablet 90 tablet 6 tabletIndications: by mouth 0 Essential hypertension daily. Active ergocalciferol (VITAMIN Take 1 12 capsule 3 D2) 1,250 mcg (50,000 capsule by 0 unit) capsuleIndications: mouth weekly. Vitamin D deficiency Active dolutegravir (TIVICAY) 50 Take 1 tablet 30 tablet 11 mg tabletIndications: by mouth 0 Asymptomatic human daily. immunodeficiency virus (HIV) infection status Active darunavir-cobicistat Take 1 tablet 30 tablet 11 (PREZCOBIX) 800-150 mg-mg by mouth 0 Tab tabletIndications: daily. Asymptomatic human immunodeficiency virus (HIV) infection status Active posaconazole (NOXAFIL) Take 2 120 tablet 11 100 mg delayed release tablets by 0 tabletIndications: mouth 2 times Coccidioidomycosis daily (with meningitis meals). 04/01/2019 Discontinued (Reorder) enalapril (VASOTEC) 10 mg YAMILKA 1 90 tablet 6 tabletIndications: TABLETA 9 Essential hypertension ORALMENTE DIARIA. 04/01/2019 Discontinued (Duplicate Orde r) darunavir-cobicistat Take 1 tablet 30 tablet 11 (PREZCOBIX) 800-150 mg-mg by mouth 9 Tab tabletIndications: daily. Asymptomatic human immunodeficiency virus (HIV) infection status 04/01/2019 Discontinued (Duplicate Orde r) dolutegravir (TIVICAY) 50 Take 1 tablet 30 tablet 11 mg tabletIndications: by mouth 9 Asymptomatic human daily. immunodeficiency virus (HIV) infection status 04/01/2019 Discontinued (Reorder) posaconazole (NOXAFIL) Take 2 120 tablet 11 100 mg delayed release tablets by 9 tabletIndications: mouth 2 times Coccidioidomycosis daily (with meningitis meals). 04/01/2019 Discontinued (Therapy comple ashish) hydrOXYzine (ATARAX) 10 Take 1 tablet 30 tablet 0 mg tabletIndications: by mouth 9 Pruritic condition every 6 hours as needed for Itching May cause DROWSINESS:Pl ease use SINGAPOREAN LABEL. 03/17/2019 Discontinued (Reorder) TIVICAY 50 mg Take 1 tablet 30 tablet 11 tabletIndications: by mouth 9 Asymptomatic human daily. immunodeficiency virus (HIV) infection status 03/17/2019 Discontinued (Reorder) PREZCOBIX 800-150 mg-mg Take 1 tablet 30 tablet 11 Tab tabletIndications: by mouth 9 Asymptomatic human daily. immunodeficiency virus (HIV) infection status 04/01/2019 Discontinued (Reorder) dolutegravir (TIVICAY) 50 Take 1 tablet 30 tablet 11 mg tabletIndications: by mouth 9 Asymptomatic human daily. immunodeficiency virus (HIV) infection status 04/01/2019 Discontinued (Reorder) darunavir-cobicistat Take 1 tablet 30 tablet 11 (PREZCOBIX) 800-150 mg-mg by mouth 9 Tab tabletIndications: daily. Asymptomatic human immunodeficiency virus (HIV) infection status 09/16/2019 Discontinued (Reorder) ergocalciferol (VITAMIN Take 1 12 capsule 3 D2) 50,000 unit capsule by 9 capsuleIndications: mouth weekly. Vitamin D deficiency 09/16/2019 Discontinued (Reorder) dolutegravir (TIVICAY) 50 Take 1 tablet 30 tablet 11 mg tabletIndications: by mouth 9 Asymptomatic human daily. immunodeficiency virus (HIV) infection status 09/16/2019 Discontinued (Reorder) darunavir-cobicistat Take 1 tablet 30 tablet 11 (PREZCOBIX) 800-150 mg-mg by mouth 9 Tab tabletIndications: daily. Asymptomatic human immunodeficiency virus (HIV) infection status 09/16/2019 Discontinued (Reorder) posaconazole (NOXAFIL) Take 2 120 tablet 11 100 mg delayed release tablets by 9 tabletIndications: mouth 2 times Coccidioidomycosis daily (with meningitis meals). 09/16/2019 Discontinued (Therapy comple ashish) enalapril (VASOTEC) 10 mg YAMILKA 1 90 tablet 6 tabletIndications: TABLETA 9 Essential hypertension ORALMENTE DIARIA. 08/21/2019 Discontinued (Therapy comple ashish) cetirizine (ZYRTEC) 10 mg Take 1 tablet 30 tablet 0 tabletIndications: Acute by mouth 9 atopic conjunctivitis of daily Please both eyes use SINGAPOREAN LABEL. 04/21/2019 Discontinued (Formulary [facility]) azelastine (OPTIVAR) 0.05 Instill 1 6 mL 0 % ophthalmic Drop in each 9 solutionIndications: eye 2 times Acute atopic daily Please conjunctivitis of both use SINGAPOREAN eyes LABEL. 09/16/2019 Discontinued (Therapy comple ashish) ketoconazole (NIZORAL) 2 Apply to 30 g 0 0 % topical affected area 9 creamIndications: Rash 2 times daily and other nonspecific Please use skin eruption SINGAPOREAN LABEL. 09/16/2019 Discontinued (Therapy comple ashish) olopatadine (PAZEO) 0.7 % Instill 1 1 Bottle 3 DropIndications: Allergic Drop by 9 conjunctivitis of both ophthalmic eyes route daily. 09/16/2019 Discontinued (Reorder) enalapril (VASOTEC) 10 mg Take 1 tablet 90 tablet 6 tabletIndications: by mouth 9 Essential hypertension daily. 08/26/2019 azithromycin (ZITHROMAX) Take 2 6 Each 0 1 250 mg tabletIndications: tablets by 9 Acute bronchitis, mouth on the unspecified organism first day, then take one tablet every day for the next 4 days: Please use SINGAPOREAN LABEL. 09/16/2019 Discontinued (Therapy comple ashish) benzonatate (TESSALON Take 1-2 30 capsule 0 08/06 PERLES) 100 mg capsules by 9 capsuleIndications: Acute mouth every 8 bronchitis, unspecified hours as organism needed for cough:Please use SINGAPOREAN LABEL. 09/16/2019 Discontinued (Therapy comple ashish) loratadine (CLARITIN) 10 Take 1 tablet 30 tablet 0 mg tabletIndications: by mouth 9 Acute bronchitis, daily Please unspecified organism use SINGAPOREAN LABEL. 12/27/2019 Discontinued (Reorder) enalapril (VASOTEC) 10 mg Take 1 tablet 90 tablet 6 tabletIndications: by mouth 9 Essential hypertension daily. 12/27/2019 Discontinued (Reorder) ergocalciferol (VITAMIN Take 1 12 capsule 3 D2) 1,250 mcg (50,000 capsule by 9 unit) capsuleIndications: mouth weekly. Vitamin D deficiency 12/27/2019 Discontinued (Reorder) dolutegravir (TIVICAY) 50 Take 1 tablet 30 tablet 11 mg tabletIndications: by mouth 9 Asymptomatic human daily. immunodeficiency virus (HIV) infection status 12/27/2019 Discontinued (Reorder) darunavir-cobicistat Take 1 tablet 30 tablet 11 (PREZCOBIX) 800-150 mg-mg by mouth 9 Tab tabletIndications: daily. Asymptomatic human immunodeficiency virus (HIV) infection status 12/27/2019 Discontinued (Reorder) posaconazole (NOXAFIL) Take 2 120 tablet 11 100 mg delayed release tablets by 9 tabletIndications: mouth 2 times Coccidioidomycosis daily (with meningitis meals). 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 Asymptomatic human immunodeficiency virus (HIV) infec tion status 12/19/2006 Seizure disorder on meds 2017 Overview: NO DM, CAD,CANCER Encounters Care Team Description Date Type Specialty Parth Guzman MD Essential hypertension; Vitamin D deficiency; Asymptomatic human immunodeficiency virus (HIV) infection status; 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 Orders Only Infectious Diseases Parth Guzman MD Asymptomatic human immunodeficiency viru s (HIV) infection status (Primary Dx); Essential hypertension; Vitamin D deficiency; Coccidioidomycosis meningitis; Seizure disorder on meds 2016; Healthcare maintenance 09/16/2019 Office Visit Infectious Diseases Paulette Spann NP Acute bronchitis, unspecified organism ( Primary Dx) 08/21/2019 [facility] Parth Guzman MD Essential hypertension 05/12/2019 Refill Infectious Diseases Paulette Spann NP Acute atopic conjunctivitis of both eyes (Primary Dx); Rash and other nonspecific skin eruption; Essential hypertension, benign 04/21/2019 [facility] Parth Guzman MD Allergic conjunctivitis of both eyes (Pr imary Dx) 04/21/2019 Orders Only Infectious Diseases Parth Guzman MD Asymptomatic human immunodeficiency viru s (HIV) infection status (Primary Dx); Vitamin D deficiency; Coccidioidomycosis meningitis; Essential hypertension 04/01/2019 Office Visit Infectious Diseases Carisa Art 03/18/2019 Clinical Case Social Work Mgt Parth Guzman MD Asymptomatic human immunodeficiency viru s (HIV) infection status 03/17/2019 Orders Only Infectious Diseases Parth Guzman MD Asymptomatic human immunodeficiency viru s (HIV) infection status 03/17/2019 Refill Infectious Diseases after 03/02/2019 Immunizations Name Administration Dates Next Due HPV 9-valent 09/16/2019 Hepatitis B Vaccine 12/03/2007 12/31/2007 Influenza A (H1N1) Vac 09/05/2009 Injection Influenza Vaccine 08/17/2015, 08/16/2014, , 09/17/2011, 09/20/2010, 08/16/2008, 07/17/2007, Influenza Vaccine, 09/25/2017 Seasonal, Injectable Ketorolac 30mg/1ml Inj 07/19/2014 (x ) PPD 08/18/2012, 2011, 08/16/2008, 12/23/2007 (Deferred: Other - will retu on friday to take itrn), 12/22/2006, 12/29/2002 PPV 23 Pneumococcal 07/05/2016 Polysaccaride Pneumococcal 13-valent 05/09/2016 conj 0.5 mL injection Td Tetanus, diphtheria 12/03/2007 11/06/2017 Toxoids Vaccine Tdap Tetanus, diphtheria, 05/09/2016 acellular pertussis Vaccine Twinrix-HEP A&b 07/05/2016, 05/09/2016 Family History Medical History Relation Name Comments Cancer Father Relation Name Status Comments Father Social History Date Tobacco Use Types Packs/Day Years Used Never Smoker Smokeless Tobacco: Never Used Tobacco Cessation: Counseling Given: No Drinks/Week oz/Week Comments Alcohol Use 0 Standard drinks or equivalent 0.0 SOMETIMES Yes Food Insecurity Answer Date Recorded Within the past 12 months, you worried that your Never damián e 10/15/2018 food would run out before you got money to buy more. Within the past 12 months, the food you bought Never true 10/15/2018 just didn't last and you didn't have mo demetra to get more. Sex Assigned at Date Recorded Not on file Industry Job Start Date Occupation Not on file Not on file Not on file Travel End Travel History Travel Start No recent travel history available. Last Filed Vital Signs Reading Time Taken Comments Vital Sign 125/79 09/16/2019 10:49 AM AGILE QA TESTER Blood Pressure 83 09/16/2019 10:49 AM AGILE QA TESTER Pulse 36.8 C (98.3 F) 09/16/2019 10:49 AM AGILE QA TESTER Temperature 18 09/16/2019 10:49 AM AGILE QA TESTER Respiratory Rate 100% 08/21/2019 1:31 PM AGILE QA TESTER Oxygen Saturation - - Inhaled Oxygen Concentration 73.7 kg (162 lb 6.4 oz) 09/16/2019 10:49 AM AGILE QA TESTER Weight 167.6 cm (5' 6") 09/16/2019 10:49 AM AGILE QA TESTER Height 26.21 09/16/2019 10:49 AM AGILE QA TESTER Body Mass Index Plan of Treatment Care Team Description Date Type Specialty Parth Guzman MD [address] [place] [address] Follow-up 03/14/2020 Office Visit Infectious Diseases Health Maintenance Due Date Last Done Comments IMM Influenza Seasonal 07/06/2020 09/25/2017 Oct to December (>/= 19 yrs) Goals Goal Patient Associated Recent Progress Patient-Stat Aut hor Goal Type Problems ed? Eat more fruits and vegetables Diet No Tania Roman Reduce salt intake to 2 grams Diet No Abel, Tania per day or less Mariah Procedures Comments Procedure Name Priority Date/Time Associated Diag nosis QUANTIFERON TB GOLD PLUS Routine 09/01/2019 Asymp tomatic human (BKR) 9:45 AM AGILE QA TESTER immunodeficiency vi reagan (HIV) infection status DIFFERENTIAL, MANUAL-WAM Routine 09/01/2019 Asymp tomatic human 9:45 AM AGILE QA TESTER immunodeficiency virus (HIV) infection status CBC Routine 09/01/2019 Asymptomatic hu man 9:45 AM AGILE QA TESTER immunodeficiency virus (HIV) infection status HEPATITIS C VIRUS AB IGG Routine 09/01/2019 Asymp tomatic human 9:45 AM AGILE QA TESTER immunodeficiency virus (HIV) infection status HEMOGLOBIN A1C Routine 09/01/2019 Asymptomatic hu man 9:45 AM AGILE QA TESTER immunodeficiency virus (HIV) infection status VIT D, 25-HYDROXY Routine 09/01/2019 Asymptomatic human 9:45 AM AGILE QA TESTER immunodeficiency virus (HIV) infection status THYROID STIMULATING Routine 09/01/2019 Asymptomat ic human HORMONE (TSH) 9:45 AM AGILE QA TESTER immunodeficiency vi reagan (HIV) infection status QUANTIFERON TB GOLD Routine 09/01/2019 Asymptomat ic human 9:45 AM AGILE QA TESTER immunodeficiency virus (HIV) infection status BASIC METABOLIC PANEL Routine 09/01/2019 Asymptom atic human 9:45 AM AGILE QA TESTER immunodeficiency virus (HIV) infection status SYPHILIS MONITOR FOR Routine 09/01/2019 Asymptoma tic human TREATMENT 9:45 AM AGILE QA TESTER immunodeficiency vi reagan (HIV) infection status CD4/CD8 RATIO GRP Routine 09/01/2019 Asymptomatic human 9:45 AM AGILE QA TESTER immunodeficiency virus (HIV) infection status HIV RNA VIRAL LOAD Routine 09/01/2019 Asymptomati c human 9:45 AM AGILE QA TESTER immunodeficiency virus (HIV) infection status LIPID PROFILE Routine 09/01/2019 Asymptomatic hu man 9:45 AM AGILE QA TESTER immunodeficiency virus (HIV) infection status LIVER PROFILE Routine 09/01/2019 Asymptomatic hu man 9:45 AM AGILE QA TESTER immunodeficiency virus (HIV) infection status CBC/DIFF Routine 09/01/2019 Asymptomatic hu man 9:45 AM AGILE QA TESTER immunodeficiency virus (HIV) infection status URINALYSIS Routine 09/01/2019 Asymptomatic hu man 9:42 AM AGILE QA TESTER immunodeficiency virus (HIV) infection status URINALYSIS Routine 09/01/2019 Asymptomatic hu man 9:42 AM AGILE QA TESTER immunodeficiency virus (HIV) infection status CHLAM/GC DNA AMPLI Routine 09/01/2019 Asymptomati c human 9:42 AM AGILE QA TESTER immunodeficiency virus (HIV) infection status HEPATITIS C VIRUS AB IGG Routine 03/18/2019 Asymp tomatic human 9:33 AM CDT immunodeficiency virus (HIV) infection status VIT D, 25-HYDROXY Routine 03/18/2019 Asymptomatic human 9:33 AM CDT immunodeficiency virus (HIV) infection status BASIC METABOLIC PANEL Routine 03/18/2019 Asymptom atic human 9:33 AM CDT immunodeficiency virus (HIV) infection status SYPHILIS MONITOR FOR Routine 03/18/2019 Asymptoma tic human TREATMENT 9:33 AM CDT immunodeficiency vi reagan (HIV) infection status LIPID PROFILE Routine 03/18/2019 Asymptomatic hu man 9:33 AM CDT immunodeficiency virus (HIV) infection status LIVER PROFILE Routine 03/18/2019 Asymptomatic hu man 9:33 AM CDT immunodeficiency virus (HIV) infection status CBC Routine 03/18/2019 Asymptomatic hu man 9:32 AM CDT immunodeficiency virus (HIV) infection status HEMOGLOBIN A1C Routine 03/18/2019 Asymptomatic hu man 9:32 AM CDT immunodeficiency virus (HIV) infection status CD4/CD8 RATIO GRP Routine 03/18/2019 Asymptomatic human 9:32 AM CDT immunodeficiency virus (HIV) infection status HIV RNA VIRAL LOAD Routine 03/18/2019 Asymptomati c human 9:32 AM CDT immunodeficiency virus (HIV) infection status CBC/DIFF Routine 03/18/2019 Asymptomatic hu man 9:32 AM CDT immunodeficiency virus (HIV) infection status URINALYSIS Routine 03/18/2019 Asymptomatic hu man 9:28 AM CDT immunodeficiency virus (HIV) infection status URINALYSIS Routine 03/18/2019 Asymptomatic hu man 9:28 AM CDT immunodeficiency virus (HIV) infection status CHLAM/GC DNA AMPLI Routine 03/18/2019 Asymptomati c human 9:28 AM CDT immunodeficiency virus (HIV) infection status after 03/02/2019 Results * CBC/Diff (09/01/2019 9:45 AM AGILE QA TESTER) Only the most recent of 2 results within the time period is included. WBC 22.8 (H) 4.5 - 12.0 K/uL [facility] RBC 5.51 4.60 - 6.20 M/uL [facility] Hemoglobin 13.8 (L) 14.0 - 18.0 g/dL [facility] Hematocrit 45.8 40.0 - 54.0 % [facility] MCV 83.1 82.0 - 92.0 fL [facility] MCH 25.0 (L) 27.0 - 31.0 pg [facility] MCHC 30.1 (L) 32.0 - 36.0 g/dL [facility] RDW 48.0 (H) 35.1 - 43.9 fL [facility] Platelet 387 150 - 400 K/uL [facility] Mean Platelet 11.1 9.4 - 12.4 fL [facility] Volume [facility] Percent NRBC 0.0 % [facility] Absolute NRBC 0.00 K/uL [facility] Specimen Blood - Arm, left Performing Organization Address City/State/Zipcode Ph one Number [facility] [address] [place] [address] [phone] * Differential, Manual (09/01/2019 9:45 AM AGILE QA TESTER) Neutrophil 78.0 (H) 34.0 - 67.9 % [facility] Lymphs 9.0 (L) 21.8 - 50.0 % [facility] Monocytes 4.0 (L) 5.3 - 12.0 % [facility] Eos 2.0 0.8 - 5.0 % [facility] Basos 0.0 (L) 0.2 - 1.2 % [facility] Metamyel 2.0 (H) <=0.0 % [facility] Myelocyte 3.0 % [facility] Atypical Lymph 2.0 (H) <=0.0 % [facility] Neutrophils 17.75 (H) 1.78 - 5.36 K/uL [facility] (Absolute) [facility] Lymphs 2.05 1.32 - 3.57 K/uL [facility] (Absolute) [facility] Monocytes(Absol 0.91 (H) 0.30 - 0.82 K/uL [facility] shreyas) [facility] Eos (Absolute) 0.46 0.04 - 0.54 K/uL [facility] Baso (Absolute) 0.00 (L) 0.01 - 0.08 K/uL [facility] Platelet Clumps Present (A) None seen [facility] Cells Counted [facility] Specimen Blood - Arm, left Performing Organization Address City/State/Zipcode Ph one Number [facility] [address] [place] [address] [phone] * Quantiferon TB Gold Plus (09/01/2019 9:45 AM AGILE QA TESTER) Pathologist [facility] QuantiFERON Comment BT [facility] Criteria Comment: The QuantiFERON-TB Gold Plus result is determined by subtracting the Nil value from either TB antigen (Ag) tube. The mitogen tube serves as a control for the test. Quantiferon TB1 0.05 IU/mL BT [facility] Quantiferon TB2 0.09 IU/mL BT [facility] QuantiFERON Nil 0.07 IU/mL BT [facility] Value QuantiFERON 0.45 IU/mL BT [facility] Mitogen Value Specimen Blood - Arm, left Narrative Performed At Performed at: 02 - [facility] [address] [place] [address] 6386 Consulting Software Engineer: Jessica Qureshi MD, Phone : [phone] Performing Organization Address [facility] one Number [facility] [address] [place] [address] * Vitamin D, 25-Hydroxycalciferol (09/01/2019 9:45 AM AGILE QA TESTER) Only the most recent of 2 results within the time period is included. [facility] Vit D, 26.0 (L) 30.0 - 100.0 ng/mL [facility] 25-Hydroxy [facility] Vitamin D Insufficient (A) Sufficient [facility] Interpretation Comment: LABORATORY Sufficient: >30.0 Insufficient: 20.0 - 29.9 Deficient: <20.0 Specimen Blood - Arm, left Performing Organization Address [facility] one Number [facility] [address] [place] [address] * Quantiferon TB Gold (In Tube) (09/01/2019 9:45 AM AGILE QA TESTER) [facility] QuantiFERON Incubation performed. BT [facility] Incubation QuantiFERON TB Indeterminate (A) Negative BT [facility] Gold Plus Comment: Mitogen (positive control) gave low response. This may indicate anergy or immune suppression. Early draws and extended transit time may also result in low positive control and indeterminate results. Specimen Blood - Arm, left Narrative Performed At Performed at: [facility] [place] [address] Consulting Software Engineer: Ruddy Tomas MD, Phone: [phone] Performed at: [address] [address] Consulting Software Engineer: Jessica Qureshi MD, Phone : [phone] Performing Organization Address [facility] one Number [facility] [address] [place] [address] * Hemoglobin A1C (09/01/2019 9:45 AM AGILE QA TESTER) Only the most recent of 2 results within the time period is included. [facility] Hemoglobin A1c 5.4 4.3 - 6.1 % [facility] Estimated 108 70 - 110 mg/dL [facility] Average Glucose LAB[facility]ORY Specimen Blood - Arm, left Performing Organization Address [facility] one Number [facility] [address] [place] [address] [phone] * TSH [Thyroid Stimulating Hormone] (09/01/2019 9:45 AM AGILE QA TESTER) TSH 2.19 0.45 - 5.33 uIU/mL [facility] Specimen Blood - Arm, left Performing Organization Address [facility] one Number [facility] [address] [place] [address] * CD4/CD8 Ratio Grp (09/01/2019 9:45 AM AGILE QA TESTER) Only the most recent of 2 results within the time period is included. Lymphocyte Abs 2,508 % [facility] CD4 Absolute 401 (L) 431-1,623 cells/uL [facility] CD8 Absolute 1,480 (H) 170-1,078 cells/uL [facility] CD4/CD8 Ratio 0.27 (L) 0.86 - 2.05 ratio [facility] WBC 22.8 (H) 4.5 - 12.0 K/uL [facility] Lymphs 9.0 (L) 21.8 - 50.0 % [facility] CD4% 16.0 (L) 25.0 - 56.0 % [facility] CD8% 59.0 (H) 14.2 - 35.8 % [facility] Specimen Blood - Arm, left Performing Organization Address [facility] one Number [facility] [address] [place] [address] * Syphilis Monitor for Treatment (09/01/2019 9:45 AM AGILE QA TESTER) Only the most recent of 2 results within the time period is included. RPR Non-reactive Non-reactive [facility] Specimen Blood - Arm, left Performing Organization Address [facility] one Number [facility] [address] [place] [address] * Liver Profile (09/01/2019 9:45 AM AGILE QA TESTER) Only the most recent of 2 results within the time period is included. Total Protein 6.4 6.0 - 8.3 g/dL [facility] Bilirubin, 0.5 0.2 - 1.2 mg/dL [facility] Total [facility] Alkaline 133 (H) 34 - 104 U/L [facility] Phosphatase [facility] AST 21 13 - 39 U/L [facility] Direct 0.1 0.0 - 0.2 mg/dL [facility] Bilirubin [facility] ALT 36 7 - 52 U/L [facility] Albumin 3.2 (L) 4.2 - 5.5 g/dL [facility] Specimen Blood - Arm, left Performing Organization Address [facility] one Number [facility] [address] [place] [address] * Lipid Profile (09/01/2019 9:45 AM AGILE QA TESTER) Only the most recent of 2 results within the time period is included. Cholesterol 167.0 <=200.0 mg/dL [facility] Triglyceride 261 (H) <150 mg/dL [facility] HDL 36.0 See Reference Range [facility] Narrative. mg/dL [facility]AT[facility] LDL 79 <100 mg/dL [facility] Comment: [facility] Optimal: < 100.0 mg/dL Near Optimal: 120-129 mg/dL Borderline: 130-159 mg/dL High: 160-189 mg/dL Very High: >=190 mg/dL Patient Yes [facility] Fasting? LABORATORY Specimen Blood - Arm, left Performing Organization Address [facility] one Number [facility] [address] [place] [address] * HIV-1 RNA (09/01/2019 9:45 AM AGILE QA TESTER) Only the most recent of 2 results within the time period is included. Pathologist [facility] HIV-1 RNA Not detected Not detected [facility] Detection LABORATORY Specimen Blood - Arm, left Narrative Performed At This test utilizes FDA cleared JOSI Am pliPrep/JOSI TaqMan HIV-1 test 2.0 from [facility] [employer] which allo ws quantitation of viral loads between 20 and 10,000,000 copies/mL of plasma. Whe n the result is positive but less than 20 copies/mL of HIV-1 RNA, the test result will be reported as detected but less than 20 copies/mL". The JOSI AmpliPrep / JOSI TaqManHIV-1 test, version 2.0 is not intended for use as a screening minerva t for the presence of HIV-1 RNA in blood or a diagnostic test to confirm the pre sence of HIV infection. This test is intended for use as an aid in the manag ement of patients with HIV-1 infection. Performing Organization Address [facility] one Number [facility] [address] [place] [address] * Hepatitis C Virus Ab IgG (09/01/2019 9:45 AM AGILE QA TESTER) Only the most recent of 2 results within the time period is included. Hep C Vir Ab Negative Negative [facility] Specimen Blood - Arm, left Performing Organization Address [facility] one Number [facility] [address] [place] [address] [phone] * Basic Metabolic Panel (09/01/2019 9:45 AM AGILE QA TESTER) Only the most recent of 2 results within the time period is included. Sodium 139 136 - 145 mmol/L [facility] Potassium 4.9 3.5 - 5.1 mmol/L [facility] Chloride 100 98 - 107 mmol/L [facility] CO2 31 21 - 31 mmol/L [facility] Urea Nitrogen 35.0 (H) 7.0 - 25.0 mg/dL [facility] Creatinine 1.8 (H) 0.7 - 1.3 mg/dL [facility] Glucose 66 (L) 70 - 110 mg/dL [facility] Calcium 9.1 8.6 - 10.3 mg/dL [facility] GFR, Estimated 43 (L) >=90 mL/min/1.73 m2 [facility] Anion Gap 8 5 - 16 mmol/L [facility] Specimen Blood - Arm, left Performing Organization Address [facility] one Number [facility] [address] [place] [address] * Urinalysis (09/01/2019 9:42 AM AGILE QA TESTER) Only the most recent of 2 results within the time period is included. Color Yellow Colorless, Straw, [facility] Clarity Clear Clear [facility] Spec [place], 1.020 1.001 - 1.035 [facility] pH, Ur 6.0 5.0 - 8.0 [facility] Protein, Ur 2+ (A) Negative mg/dL [facility] Glucose, Ur Negative Negative mg/dL [facility] Ketone, Ur Negative Negative mg/dL [facility] Bilirubin, Ur Negative Negative mg/dL [facility] Nitrite, Ur Negative Negative [facility] Leukocyte Negative Negative mg/dL [facility] Blood, Ur Negative Negative mg/dL [facility] RBC <1 0 - 4 /HPF [facility] WBC 2 0 - 5 /HPF [facility] Epithelial Cell <1 <=1 /HPF [facility] Mucous Present (A) None seen /HPF [facility] Urobilinogen, <1.0 <1.0 EU/dL [facility] Specimen Urine - Voided, urine Performing Organization Address [facility]/State[facility] one Number [facility] [address] [place] [address] [phone] * Chlam/GC DNA Amplification (09/01/2019 9:42 AM AGILE QA TESTER) Only the most recent of 2 results within the time period is included. Chlamydia Negative Negative [facility] N. gonorrhoeae Negative Negative [facility] Specimen Urine - Voided, urine Narrative Performed At This test utilizes [place] Aptima Combo 2 Assay for target amplification of rRNA [facility] for the qualitative detection of Chlamy lesvia trachomatis and Neisseria gonorrhoeae. Performing Organization Address City/State/[facility] Ph one Number [facility] [address] [place] [address] after 03/02/2019 Insurance Type Payer Benefit Subscriber ID Effective Phone Address Plan / Dates Group [facility] xxxxxxxxx 2011-P [phone] [address] [address] [place] [address]
--- OUTSIDE RECORDS SUMMARY | 2020-03-02 10:39 | XMS REPORT ---
Author Author [facility] t Organization [facility] Address [address] [place] [address] Phone Unavailable Care Team Providers Care Rag Willow Operator Name Role Phone NONSTAFF PCP Unavailable Megan WHITT, Carmelo Alba Attphys ALEXUS CABRALES Attphys Unavailable Maria Ines RAW MATERIAL HANDLER, G Rediate Attphys Ernestina Art Attphys Unavailable KERONALEXUS PAYNE Admphys Unavailable Payers Payer Name Policy Type Policy Number Effective Date Expiration Date [facility] [id number].[address] [place] [address] xxxxxxxxx 2011 00:00:00 Formerly [facility] Star Plus [id number] 2006 00:00:00 [facility] Problems Condition Name Condition Details Condition Category Status Onset Date Resolution Date Last Treatment Date Treating Clinician Comments Source Essential hypertension Essential hypertension Disease Active 2016-05-09 00:00:00 [facility] Human immunodeficiency virus (HIV) infection HIV (craig n immunodeficiency virus infection) Problem Active 2015-12-18 00:00:00 Carmelo [facility] Mass of left kidney Left renal mass Problem Active 2015-12-18 00:00:00 [facility] Small bowel obstruction SBO (small bowel obstruction) Problem Active 2015-12-18 00:00:00 [facility] Hearing loss Hearing loss Disease Active 2015-11-23 00:00:00 [facility] 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 Allergies, Adverse Reactions, Alerts Allergy Name Allergy Type Status Severity Reaction(s) Onset Date Inacti ve Date Treating Clinician Comments Source No Known Allergies DA Active U 2015-12-17 00:00:00 [facility] Family History Family Member Diagnosis Comments Start Date Stop Date Source Natural father Cancer [facility] Social History Social Habit Start Date Stop Date Quantity Comments Source Alcohol Comment SOMETIMES [facility] Sex Assigned At [facility] Alcohol intake 2019-09-16 00:00:00 2019-09-16 00:00:00 [facility] SDOH Food Worry 2018-10-15 00:00:00 2018-10-15 00:00:00 1 [facility] Food Scarcity 2018-10-15 00:00:00 2018-10-15 00:00:00 1 [facility] Smoking Status Start Date Stop Date Source Never smoker [facility] Medications Ordered Medication Name Filled Medication Name Start Date Stop Da te Current Medication? Ordering Clinician Indication Dosage Frequency Signature (SIG) Comments Components Source enalapril (VASOTEC) 10 mg tablet 2019-12-27 00:00:00 Yes Essential hypertension 10mg QD Take 1 tablet by mouth daily. [facility] ergocalciferol (VITAMIN D2) 1,250 mcg (50,000 unit) capsule 2019-12-27 00:00:00 Yes Vitamin D deficiency 88719A Take 1 cap maciel by mouth weekly. [facility] dolutegravir (TIVICAY) 50 mg tablet 2019-12-27 00:00:00 Yes Asymptomatic human immunodeficiency virus (HIV) infection status 50mg QD Take 1 tablet by mouth daily. [facility] darunavir-cobicistat (PREZCOBIX) 800-150 mg-mg Tab tablet 2019-12-27 00:00:00 Yes Asymptomatic human immunodeficiency virus (HIV) infection status 1{tbl} QD Take 1 tablet by mouth daily. [facility] posaconazole (NOXAFIL) 100 mg delayed release tablet 2 00:00:00 Yes Coccidioidomycosis meningitis 200mg Take 2 tablets by mouth 2 times daily (with meals). [facility] enalapril (VASOTEC) 10 mg tablet 2019-09-16 00:00:00 2019-12 00:00:00 No Essential hypertension 10mg QD Take 1 tablet by mouth daily. [facility] ergocalciferol (VITAMIN D2) 1,250 mcg (50,000 unit) capsule 2019-09-16 00:00:00 2019-12-27 00:00:00 No Vitamin D deficiency 80469S Take 1 capsule by mouth weekly. [facility] dolutegravir (TIVICAY) 50 mg tablet 2019-09-16 00:00:0 0 2019-12-27 00:00:00 No Asymptomatic human immunodeficiency virus (HIV) infect ion status 50mg QD Take 1 tablet by mouth daily. [facility] darunavir-cobicistat (PREZCOBIX) 800-150 mg-mg Tab tablet 2019-09-16 00:00:00 2019-12-27 00:00:00 No Asymptomatic human i mmunodeficiency virus (HIV) infection status 1{tbl} QD Take 1 tablet by mouth daily. [facility] posaconazole (NOXAFIL) 100 mg delayed release tablet 2019-09-16 00:00:00 2019-12-27 00:00:00 No Coccidioidomycosis meningitis 200mg Take 2 tablets by mouth 2 times daily (with meals). [facility] cefTRIAXone (ROCEPHIN) 1 g with lidocaine diluent 1% 2.1 mL for injection 2019-08-21 15:15:00 2019-08-21 15:17:00 No Acute br onchitis, unspecified organism 1g [facility] benzonatate (TESSALON PERLES) 100 mg capsule 201 06-16-16 00:00:00 2019-09-16 00:00:00 No Acute bronchitis, unspecified organism Take 1-2 capsules by mouth every 8 hours as needed for cough:Please use INDONESIAN LABEL. [facility] loratadine (CLARITIN) 10 mg tablet 2019-08-21 00:00:00 201 06-17-12 00:00:00 No Acute bronchitis, unspecified organism 10mg QD Take 1 tablet by mouth daily Please use INDONESIAN LABEL. [facility] azithromycin (ZITHROMAX) 250 mg tablet 2019-08-06 6 00:00:00 2019-08-26 23:59:00 No Acute bronchitis, unspecified organism Take 2 tablets by mouth on the first day, then take one tablet every day for the next 4 days: Please use INDONESIAN LABEL. [facility] enalapril (VASOTEC) 10 mg tablet 2019-05-12 00:00:00 2019-09 00:00:00 No Essential hypertension 10mg QD Take 1 tablet by mouth daily. [facility] ketoconazole (NIZORAL) 2 % topical cream 2019-04 00:00:00 2019-09-16 00:00:00 No Rash and other nonspecific skin eruption Q.5D Apply to affected area 2 times daily Please use INDONESIAN LABEL. [facility] olopatadine (PAZEO) 0.7 % Drop 2019-04-21 00:00:00 2019-09-05 2 00:00:00 No Allergic conjunctivitis of both eyes 1[drp] QD Ins till 1 Drop by ophthalmic route daily. [facility] cetirizine (ZYRTEC) 10 mg tablet 2019-04-21 00:00:00 2019-08 00:00:00 No Acute atopic conjunctivitis of both eyes 10mg QD Take 1 tablet by mouth daily Please use INDONESIAN LABEL. [facility] azelastine (OPTIVAR) 0.05 % ophthalmic solution 2019-04-21 00:00:00 2019-04-21 00:00:00 No Acute atopic conjunctivitis of both eyes 1[drp] Q.5D Instill 1 Drop in each eye 2 times daily Please use INDONESIAN LABEL. [facility] ergocalciferol (VITAMIN D2) 50,000 unit capsule 2019-04-01 00:00:00 2019-09-16 00:00:00 No Vitamin D deficiency 11306U Take 1 capsule by mouth weekly. [facility] dolutegravir (TIVICAY) 50 mg tablet 2019-04-01 00:00:0 0 2019-09-16 00:00:00 No Asymptomatic human immunodeficiency virus (HIV) infect ion status 50mg QD Take 1 tablet by mouth daily. [facility] darunavir-cobicistat (PREZCOBIX) 800-150 mg-mg Tab tablet 2019-04-01 00:00:00 2019-09-16 00:00:00 No Asymptomatic human i mmunodeficiency virus (HIV) infection status 1{tbl} QD Take 1 tablet by mouth daily. [facility] posaconazole (NOXAFIL) 100 mg delayed release tablet 2019-04-01 00:00:00 2019-09-16 00:00:00 No Coccidioidomycosis meningitis 200mg Take 2 tablets by mouth 2 times daily (with meals). [facility] enalapril (VASOTEC) 10 mg tablet 2019-04-01 00:00:00 2019-09 00:00:00 No Essential hypertension YAMILKA 1 TABLETA ORALMENTE DIARIA. [facility] dolutegravir (TIVICAY) 50 mg tablet 2019-03-17 00:00:0 0 2019-04-01 00:00:00 No Asymptomatic human immunodeficiency virus (HIV) infect ion status 50mg QD Take 1 tablet by mouth daily. [facility] darunavir-cobicistat (PREZCOBIX) 800-150 mg-mg Tab tablet 2019-03-17 00:00:00 2019-04-01 00:00:00 No Asymptomatic human i mmunodeficiency virus (HIV) infection status 1{tbl} QD Take 1 tablet by mouth daily. [facility] TIVICAY 50 mg tablet 2019-03-17 00:00:00 2019-03-17 00:00:00 No Asymptomatic human immunodeficiency virus (HIV) infection status Take 1 tablet by mouth daily. [facility] PREZCOBIX 800-150 mg-mg Tab tablet 2019-03-17 00:00:00 201 06-11-12 00:00:00 No Asymptomatic human immunodeficiency virus (HIV) infection status Take 1 tablet by mouth daily. [facility] hydrOXYzine (ATARAX) 10 mg tablet 2019-01-04 00:00:00 2018 00:00:00 No Pruritic condition 10mg Take 1 tablet by mouth every 6 hours as needed for Itching May cause DROWSINESS:Please use INDONESIAN LABEL. [facility] posaconazole (NOXAFIL) 100 mg delayed release tablet 2018-12-08 00:00:00 2019-04-01 00:00:00 No Coccidioidomycosis meningitis 200mg Take 2 tablets by mouth 2 times daily (with meals). [facility] enalapril (VASOTEC) 10 mg tablet 2018-10-15 00:00:00 2019-03 00:00:00 No Essential hypertension YAMILKA 1 TABLETA ORALMENTE DIARIA. [facility] darunavir-cobicistat (PREZCOBIX) 800-150 mg-mg Tab tablet 2018-10-15 00:00:00 2019-04-01 00:00:00 No Asymptomatic human i mmunodeficiency virus (HIV) infection status 1{tbl} QD Take 1 tablet by mouth daily. [facility] dolutegravir (TIVICAY) 50 mg tablet 2018-10-15 00:00:0 0 2019-04-01 00:00:00 No Asymptomatic human immunodeficiency virus (HIV) infect ion status 50mg QD Take 1 tablet by mouth daily. [facility] Tramadol Hcl (Ultram) 50 Mg Tablet, 50 Mg Oral Tramado l Hcl (Ultram) 50 Mg Tablet, 50 Mg Oral 2016-12-03 00:00:00 2017-02-15 00:00:00 No Nereida Villalta 50 Every 6 Hours as needed for Pain [facility] Dolutegravir Sodium (Tivicay) 50 Mg Tablet Dolutegravi r Sodium (Tivicay) 50 Mg Tablet Yes 50 Daily [facility] Enalapril Maleate (Vasotec) 10 Mg Tablet Enalapril Mal eate (Vasotec) 10 Mg Tablet Yes 10 Daily [facility] Ergocalciferol (Vitamin D2) (Vitamin D2) 50 Mcg Capsul e Ergocalciferol (Vitamin D2) (Vitamin D2) 50 Mcg Capsule Yes 47884 Weekly [facility] Noxafil Noxafil Yes 200 Twice Daily With Meals [facility] Prezcobix 800-150MG Prezcobix 800-150MG Yes 1 Daily [facility] Duranavir-Cobicistat , Duranavir-Cobicistat , 2019-08-25 00:00:00 No [facility] Levetiracetam (Keppra) 1,000 Mg Tablet, 1000 Mg Oral L evetiracetam (Keppra) 1,000 Mg Tablet, 1000 Mg Oral 2019-08-25 00:00:00 No 10 00 Twice A Day [facility] Tibica , Unknown Dose Tibica , Unknown Dose 2019-08-25 00:00:00 No [facility] Dolutegravir , 50 Mg Oral Dolutegravir , 50 Mg Oral 00:00:00 No 50 Daily [facility] Enalapril Maleate (Vasotec) 5 Mg Tab, 5 Mg Oral Enalap ril Maleate (Vasotec) 5 Mg Tab, 5 Mg Oral 2016-09-20 00:00:00 No 5 Daily [facility] Clarithromycin (Biaxin) 500 Mg Tablet, 500 Mg Oral Cla rithromycin (Biaxin) 500 Mg Tablet, 500 Mg Oral 2016-09-19 00:00:00 No 500 T wice A Day [facility] Dicyclomine Hcl (Bentyl) 20 Mg Tablet, 20 Mg Oral Dicy clomine Hcl (Bentyl) 20 Mg Tablet, 20 Mg Oral 2016-09-19 00:00:00 No 20 Every 6 Hours as needed for Abdominal Pain [facility] Ethambutol Hcl (Myambutol) 400 Mg Tablet, 1200 Mg Oral Ethambutol Hcl (Myambutol) 400 Mg Tablet, 1200 Mg Oral 2016-09-19 00:00:00 No 1200 Daily [facility] Ondansetron (Zofran Odt) 4 Mg Tab.rapdis, 4 Mg Oral On dansetron (Zofran Odt) 4 Mg Tab.rapdis, 4 Mg Oral 2016-09-19 00:00:00 No 4 Every 6 Hours as needed for Nausea And Vomiting [facility] Tramadol Hcl (Ultram) 50 Mg Tablet, 50 Mg Oral Tramado l Hcl (Ultram) 50 Mg Tablet, 50 Mg Oral 2016-09-19 00:00:00 No 50 Every 6 Hours as needed for Abdominal Pain [facility] Triumeg , 50 Mg Oral Triumeg , 50 Mg Oral 2016-09-19 00:00:00 No 50 Daily [facility] Immunizations Ordered Immunization Name Filled Immunization Name Date Status Comments Source HPV 9-valent 2019-09-16 00:00:00 Completed [facility] Influenza Vaccine, Seasonal, Injectable 2017-09-25 00:00:0 0 Completed [facility] PPV 23 Pneumococcal Polysaccaride 2016-07-05 00:00:00 Comp leted [facility] Twinrix-HEP A&b 2016-07-05 00:00:00 Completed [facility] Pneumococcal 13-valent conj 0.5 mL injection 2016-05-09 00 :00:00 Completed [facility] Tdap Tetanus, diphtheria, acellular pertussis Vaccine 2016-05-09 00:00:00 Completed [facility] Twinrix-HEP A&b 2016-05-09 00:00:00 Completed [facility] Influenza Vaccine 2015-08-17 00:00:00 Completed [facility] Influenza Vaccine 2014-08-16 00:00:00 [facility] Ketorolac 30mg/1ml Inj (x ) 2014-07-19 00:00:00 Comple ashish [facility] Influenza Vaccine 2012-08-18 00:00:00 Completed [facility] PPD 2012-08-18 00:00:00 Completed [facility] Influenza Vaccine 2011-09-17 00:00:00 Completed [facility] PPD 2011 00:00:00 Completed [facility] Influenza Vaccine 2010-09-20 00:00:00 Completed [facility] Influenza A (H1N1) Vac Injection 2009-09-05 00:00:00 Compl eted [facility] Influenza Vaccine 2008-08-16 00:00:00 Completed [facility] PPD 2008-08-16 00:00:00 Completed [facility] Td Tetanus, diphtheria Toxoids Vaccine 2007-12-03 00:00:00 Completed [facility] Hepatitis B Vaccine 2007-12-03 00:00:00 Completed [facility] Influenza Vaccine 2007-07-17 00:00:00 Completed [facility] PPD 2006-12-22 00:00:00 Completed [facility] Influenza Vaccine 2006-08-01 00:00:00 Completed [facility] PPD 2002-12-29 00:00:00 Completed [facility] Vital Signs Vital Name Observation Time Observation Value Comments Source Systolic blood pressure 2019-09-16 10:49:00 125 mm[Hg] [facility] Diastolic blood pressure 2019-09-16 10:49:00 79 mm[Hg] [facility] Heart rate 2019-09-16 10:49:00 83 /min [facility] Body temperature 2019-09-16 10:49:00 36.83 Desirae [facility] Respiratory rate 2019-09-16 10:49:00 18 /min [facility] Body height 2019-09-16 10:49:00 167.6 cm [facility] Body weight 2019-09-16 10:49:00 73.664 kg [facility] BMI 2019-09-16 10:49:00 26.21 kg/m2 [facility] Oxygen saturation in Arterial blood by Pulse oximetry 2018-10 13:31:00 100 /min [facility] Procedures Procedure Date / Time Performed Performing Clinician Sourc e CBC/DIFF 2019-09-01 15:45:00 Parth Guzman [facility]th LIVER PROFILE 2019-09-01 15:45:00 Parth Guzman [facility] LIPID PROFILE 2019-09-01 15:45:00 Parth Guzman [facility] HIV RNA VIRAL LOAD 2019-09-01 15:45:00 Parth Guzman [facility] CD4/CD8 RATIO GRP 2019-09-01 15:45:00 Parth Guzman [facility] SYPHILIS MONITOR FOR TREATMENT 2019-09-01 15:45:00 Robert Guzman [facility] BASIC METABOLIC PANEL 2019-09-01 15:45:00 Parth Guzman [facility] QUANTIFERON TB GOLD 2019-09-01 15:45:00 Parth Guzman [facility] THYROID STIMULATING HORMONE (TSH) 2019-09-01 15:45:00 Herbert Guzman [facility] VIT D, 25-HYDROXY 2019-09-01 15:45:00 Parth Guzman [facility] HEMOGLOBIN A1C 2019-09-01 15:45:00 Prath Guzmna [facility] HEPATITIS C VIRUS AB IGG 2019-09-01 15:45:00 Parth Guzman [facility] CBC 2019-09-01 15:45:00 Parth Guzman [facility] DIFFERENTIAL, MANUAL-WAM 2019-09-01 15:45:00 Parth Guzman [facility] QUANTIFERON TB GOLD PLUS (BKR) 2019-09-01 15:45:00 Robert Guzman [facility] CHLAM/GC DNA AMPLI 2019-09-01 15:42:00 Parth Guzman [facility] URINALYSIS 2019-09-01 15:42:00 Parth Guzman [facility] URINALYSIS 2019-09-01 15:42:00 Parth Guzman [facility] X-ray of chest, two views 2019-08-26 00:00:00 [facility] X-ray of chest, two views 2019-08-25 00:00:00 [facility] LIVER PROFILE 2019-03-18 14:33:00 Parth Guzman [facility] LIPID PROFILE 2019-03-18 14:33:00 Parth Guzman [facility] SYPHILIS MONITOR FOR TREATMENT 2019-03-18 14:33:00 Robert Guzman [facility] BASIC METABOLIC PANEL 2019-03-18 14:33:00 Parth Guzman [facility] VIT D, 25-HYDROXY 2019-03-18 14:33:00 Parth Guzman [facility] HEPATITIS C VIRUS AB IGG 2019-03-18 14:33:00 Parth Guzman [facility] CBC/DIFF 2019-03-18 14:32:00 Parth Guzman [facility] HIV RNA VIRAL LOAD 2019-03-18 14:32:00 Parth Guzman [facility] CD4/CD8 RATIO GRP 2019-03-18 14:32:00 Parth Guzman [facility] HEMOGLOBIN A1C 2019-03-18 14:32:00 Parth Guzman [facility] CBC 2019-03-18 14:32:00 Parth Guzman alth CHLAM/GC DNA AMPLI 2019-03-18 14:28:00 Parth Guzman [facility] URINALYSIS 2019-03-18 14:28:00 Parth Guzman [facility] URINALYSIS 2019-03-18 14:28:00 Parth Guzman Plan of Care Planned Activity Planned Date Details Comments Source Future Scheduled Test 2020-07-06 00:00:00 IMM Influenza Seas onal Jul to December (>/= 19 yrs) [code = IMM Influenza Seasonal Jul to December (>/= 19 yrs)] [facility] Encounters Start Date/Time End Date/Time Encounter Type Admission Type [facility] Care Department Encounter ID Source 2019-08-25 11:21:00 2019-08-30 15:43:00 Discharged Inpatient 1 ALEXUS CABRALES [facility] [id number] [facility] 2018-10-15 00:00:00 2018-10-15 00:00:00 Outpatient [facility] [id number] [facility] 2018-09-22 00:00:00 2018-09-22 00:00:00 Outpatient [facility] [id number] [facility] 2018-09-08 00:00:00 2018-09-08 00:00:00 Outpatient [facility] [id number] [facility] 2018-09-03 15:26:43 2018-09-03 15:26:43 Outpatient [facility] [id number] [facility] 2018-07-14 00:00:00 2018-07-14 00:00:00 Outpatient [facility] [id number] [facility] 2018-06-01 00:00:00 2018-06-01 00:00:00 Outpatient [facility] [id number] [facility] 2018-05-19 16:40:10 2018-05-19 16:40:10 Outpatient [facility] [id number] [facility] 2018-05-19 00:00:00 2018-05-19 00:00:00 Outpatient [facility] [id number] [facility] 2018-04-07 10:28:59 2018-04-07 10:28:59 Outpatient [facility] [id number] [facility] 2018-04-02 12:40:58 2018-04-02 12:40:58 Outpatient [facility] [id number] [facility] 2018-03-24 08:06:27 2018-03-24 08:06:27 Outpatient [facility] [id number] [facility] 2018-03-13 00:00:00 2018-03-13 00:00:00 Outpatient [facility] [id number] [facility] 2018-02-27 00:00:00 2018-02-27 00:00:00 Outpatient [facility] [id number] [facility] 2018-02-04 14:13:35 2018-02-04 14:13:35 Outpatient [facility] [id number] [facility] 2017-12-03 08:42:35 2017-12-03 08:42:35 Outpatient [facility] [id number] [facility] 2017-09-25 10:27:58 2017-09-25 10:27:58 Outpatient [facility] [id number] [facility] 2017-09-11 10:42:28 2017-09-11 10:42:28 Outpatient [facility] [id number] [facility] Results Test Description Test Time Test Comments Results Result Comments Source TB Test (T-Spot) 2019-08-30 11:21:00 Test Item TB Test (T-Spot) (test code = TB Test (T-Spot)) T-SPOT : NEGATIVE A negative test result does not exclude the possibility of exposure to or infection with Mycobacterium tuberculosis (M. tuberculosis). Patients with recent exposure to TB infected individuals exhibiting a negative T-Spot.TB result should be considered for retesting within 6 weeks or if other relevent clinical symptoms indicate. Results from T-Spot.TB testing must be used in conjunction with each individual's epiemiological history, current medical status, and results of other diagnostic evaluations. The T-Spot.TB test is qualitative and results are reported as positive, borderline or negative, given that the test controls perform are expected. In line with the Centers for Disease Control Control and Prevention's 2010 recommendation to report quantitative measurements alongside the qualitative result, the laboratory provides spot counts for the informational purposes only. The T-Spot.TB test should not be interpreted as a quantitative test. Panel A Spot Count (Corrected for Negative Control) 1 Panel B Spot Count(Corrected for Negative Control) 4 Negative Control Passed Positive Control Passed Testing performed by: [employer] [address] [place] [id number] Dir: Jose Manuel Rincon MD [facility] [id number] 11:08:00* Test Item Value Reference Range Interpretation Comments Blood Culture (test code = 33498898) NO GROWTH AFTER 5 DAYS, FINAL REPORT [facility] [id number] 07:50:00* Test Item Value Reference Range Interpretation Comments Sodium Level (test code = 2951-2) 141 136-145 [facility] [id number] 07:50:00* Test Item Value Reference Range Interpretation Comments Potassium Level (test code = 2823-3) 4.3 3.5-5.1 [facility] [id number] 07:50:00* Test Item Value Reference Range Interpretation Comments Chloride Level (test code = 2075-0) 108 98-107 H [facility] CenterCarbon Dioxide [id number] 07:50:00* Test Item Value Reference Range Interpretation Comments Carbon Dioxide Level (test code = 2028-9) 25 22-29 [facility] Center[facility]ion [id number] 07:50:00* Test Item Value Reference Range Interpretation Comments Anion Gap (test code = 25045-1) 12.3 8-16 [facility] Urea [id number] 07:50:00* Test Item Value Reference Range Interpretation Comments Blood Urea Nitrogen (test code = 3094-0) 20 7-26 [facility] Center[facility]inine2019-11-24 07:50:00* Test Item Value Reference Range Interpretation Comments Creatinine (test code = 2160-0) 1.15 0.72-1.25 [facility]Creatinine [id number] 07:50:00* Test Item Value Reference Range Interpretation Comments BUN/Creatinine Ratio (test code = 3097-3) 17 6-25 [facility] Center[facility] Glomerular Filtration Rate 2019-08-29 07:50:00* Test Item Value Reference Range Interpretation Comments Estimat Glomerular Filtration Rate (test code = 731803200) > 60 >60 Ranges were taken from the National Kidney Disease Education Program and the [facility] literature.Reference ranges:60 or greater: [id number] ( for 3 consecutive months): Chronic kidney disease 15 or less: [facility] failure[facility] [facility] CenterGlucose Rndmc3071-34-35 07:50:00* Test Item Value Reference Range Interpretation Comments Glucose Level (test code = KBW0590) 113 74-118 [facility] CenterCalcium Xkvxf9118-06-15 07:50:00* Test Item Value Reference Range Interpretation Comments Calcium Level (test code = 56204-6) 9.0 8.4-10.2 [facility] CenterTotal Lxdduudcx5866-34-11 07:50:00* Test Item Value Reference Range Interpretation Comments Total Bilirubin (test code = 1975-2) 0.2 0.2-1.2 [facility] CenterAspartate Amino Transf (AST/SGOT) 2019-08-29 07:50:00* Test Item Value Reference Range Interpretation Comments Aspartate Amino Transf (AST/SGOT) (test code = Aspartate Amino Transf (AST/SGOT)) 16 5-34 [facility] CenterAlanine Aminotransferase (ALT/SGPT) 2019-08-29 07:50:00* Test Item Value Reference Range Interpretation Comments Alanine Aminotransferase (ALT/SGPT) (test code = 1742-6) 20 0-55 [facility] CenterTotal Isvtoyv4876-60-45 07:50:00* Test Item Value Reference Range Interpretation Comments Total Protein (test code = 2885-2) 6.0 6.5-8.1 L [facility] CenterAlbumin2019-11-24 07:50:00* Test Item Value Reference Range Interpretation Comments Albumin (test code = 1751-7) 2.3 3.5-5.0 L [facility] CenterGlobulin2019-11-24 07:50:00* Test Item Value Reference Range Interpretation Comments Globulin (test code = 75677-5) 3.7 2.3-3.5 H [facility] CenterAlbumin/Globulin Thljq2995-85-19 07:50:00 * Test Item Value Reference Range Interpretation Comments Albumin/Globulin Ratio (test code = 1759-0) 0.6 0.8-2.0 L [facility] CenterAlkaline Qmhqysgpcqn5740-63-03 07:50:00* Test Item Value Reference Range Interpretation Comments Alkaline Phosphatase (test code = 6768-6) 125 40-150 [facility] CenterWhite Blood Mzdkj7898-74-04 07:12:00* Test Item Value Reference Range Interpretation Comments White Blood Count (test code = 6690-2) 15.22 4.8-10.8 H [facility] CenterRed Blood Uvgtj0901-90-31 07:12:00* Test Item Value Reference Range Interpretation Comments Red Blood Count (test code = 789-8) 4.37 4.3-5.7 [facility] CenterHemoglobin2019-11-24 07:12:00* Test Item Value Reference Range Interpretation Comments Hemoglobin (test code = 87375-5) 11.3 14.0-18.0 L [facility] CenterHematocrit2019-11-24 07:12:00* Test Item Value Reference Range Interpretation Comments Hematocrit (test code = 4544-3) 34.9 38.2-49.6 L [facility] CenterMean Corpuscular Bbwlcl3637-04-06 07:12:00* Test Item Value Reference Range Interpretation Comments Mean Corpuscular Volume (test code = 787-2) 79.9 81-99 L [facility] CenterMean Corpuscular Qykgucxitl4290-88-65 07:12:00* Test Item Value Reference Range Interpretation Comments Mean Corpuscular Hemoglobin (test code = 785-6) 25.9 28-32 L [facility] CenterMean Corpuscular Hemoglobin Concent 2019-08-29 07:12:00* Test Item Value Reference Range Interpretation Comments Mean Corpuscular Hemoglobin Concent (test code = 786-4) 32.4 31-35 [facility] CenterRed Cell Distribution Wtdfs3668-19-51 07:12:00* Test Item Value Reference Range Interpretation Comments Red Cell Distribution Width (test code = 88156-0) 15.8 11.7 -14.4 H [facility] CenterPlatelet Ysnqj5517-80-23 07:12:00* Test Item Value Reference Range Interpretation Comments Platelet Count (test code = 777-3) 295 140-360 [facility] CenterNeutrophils (%) (Auto)2019-08-29 07:12:00 * Test Item Value Reference Range Interpretation Comments Neutrophils (%) (Auto) (test code = 69934-5) 81.9 38.7-80.0 H [facility] CenterLymphocytes (%) (Auto)2019-08-29 07:12:00 * Test Item Value Reference Range Interpretation Comments Lymphocytes (%) (Auto) (test code = 736-9) 7.4 18.0-39.1 L [facility] CenterMonocytes (%) (Auto)2019-08-29 07:12:00* Test Item Value Reference Range Interpretation Comments Monocytes (%) (Auto) (test code = 5905-5) 5.1 4.4-11.3 [facility] CenterEosinophils (%) (Auto)2019-08-29 07:12:00 * Test Item Value Reference Range Interpretation Comments Eosinophils (%) (Auto) (test code = 713-8) 0.0 0.0-6.0 [facility] CenterBasophils (%) (Auto)2019-08-29 07:12:00* Test Item Value Reference Range Interpretation Comments Basophils (%) (Auto) (test code = 706-2) 0.3 0.0-1.0 [facility] CenterIM GRANULOCYTES %2019-08-29 07:12:00* Test Item Value Reference Range Interpretation Comments IM GRANULOCYTES % (test code = IM GRANULOCYTES %) 5.3 0.0- 1.0 H [facility] CenterNeutrophils # (Auto)2019-08-29 07:12:00* Test Item Value Reference Range Interpretation Comments Neutrophils # (Auto) (test code = 751-8) 12.5 2.1-6.9 H [facility] CenterLymphocytes # (Auto)2019-08-29 07:12:00* Test Item Value Reference Range Interpretation Comments Lymphocytes # (Auto) (test code = 10784-6) 1.1 1.0-3.2 [facility] CenterMonocytes # (Auto)2019-08-29 07:12:00* Test Item Value Reference Range Interpretation Comments Monocytes # (Auto) (test code = 742-7) 0.8 0.2-0.8 [facility] CenterEosinophils # (Auto)2019-08-29 07:12:00* Test Item Value Reference Range Interpretation Comments Eosinophils # (Auto) (test code = 711-2) 0.0 0.0-0.4 [facility] CenterBasophils # (Auto)2019-08-29 07:12:00* Test Item Value Reference Range Interpretation Comments Basophils # (Auto) (test code = 704-7) 0.0 0.0-0.1 [facility] CenterAbsolute Immature Granulocyte (auto 2019-08-29 07:12:00* Test Item Value Reference Range Interpretation Comments Absolute Immature Granulocyte (auto (minerva t code = Absolute Immature Granulocyte (auto) 0.81 0-0.1 H [facility] CenterCHEST SINGLE (PORTABLE)2019-08-28 15:46:00 [place] [address] Patient Name: ASHLEE BARNETT MR #: [id number] : 1980 Age/Sex: 39/M Req #: [id number] Adm Physician: ALEXUS CABRALES MD Ordered by: MOLINA LOPEZ MD Report #: [id number] Location: [facility] Room/Bed: [facility] Procedure: [id number] DX /CHEST SINGLE (PORTABLE) Exam Date: 08/28/19 Exam Ti me: 1510 REPORT STATUS: Signed E XAMINATION: CHEST SINGLE (PORTABLE) INDICATION: Pneumonia COMPARISON: C hest radiograph 08/26/2019 FINDINGS: LINES/TUBES:None LUNGS: Lower lung volume. Unchanged bilateral diffuse reticulonodular opacities with scattered areas of more focal consolidative opacities. PLEURA:No pleural ef fusion or pneumothorax. MEDIASTINUM:The cardiomediastinal silhouette appear s unchanged in size and shape. BONES/SOFT TISSUES:No acute osseous injury . ABDOMEN:No free air under the diaphragm. IMPRESSION: Unchanged di ffuse reticular nodular opacity is concerning for atypical pneumonia. Si gned by: Harvey Cadet MD on 08/28/2019 3:47 PM Dictated By: HARVEY CADET MD 46 Transcribed By: JOSE on 08/28/191546 COPY TO: MOLINA LOPEZ MD CHEST 2 LDSBM9714-67-07 08:53:00 [place] [address] Patient Name: ASHLEE BARNETT MR #: [id number] : 1980 Age/Sex: 39/M Req #: [id number] Adm Physician: ALEXUS CABRALES MD Ordered by: FLORIAN JUNIOR MD Report #: [id number] Location: MED/SURG3 Room/Bed: [facility] Procedure: 1121-000 2 DX/CHEST 2 VIEWS Exam Date: 08/26/19 Exam Time: 15 REPORT STATUS: Signed EXAMINA TION: CHEST 2 VIEWS INDICATION: Pneumonia COMPARISON: Chest radio graph 08/25/2019 FINDINGS: LINES/TUBES:None LUNGS:The lungs are moderately inflated. Unchanged bilateral diffuse reticulonodular opacities with scattered areas of more focal consolidative opacities. PLEURA:No pl eural effusion or pneumothorax. MEDIASTINUM:The cardiomediastinal silhouett e appears unchanged in size and shape. BONES/SOFT TISSUES:No acute osseou s injury. ABDOMEN:No free air under the diaphragm. IMPRESSION: P redominantly diffuse reticular nodular opacity concerning for atypical or oppo rtunistic infection in this patient with HIV. Recommend chest CT for further e valuation. Signed by: Humberto Browning MD on 08/26/2019 8:58 AM Dictated By: HUMBERTO BROWNING MD 7 Tra nscribed By: JOSE on 08/26/19857 COPY TO: FLORIAN JUNIOR MD Lactic Acid Nznqo5209-62-96 14:42:00* Test Item Value Reference Range Interpretation Comments Lactic Acid Level (test code = Lactic Acid Level) 1.6 0.5- 2.0 [facility] CenterLactate Cwaqgkqlhlhcl1267-47-14 12:24:00 * Test Item Value Reference Range Interpretation Comments Lactate Dehydrogenase (test code = 467691328) 180 125-220 [facility] CenterGroup A Streptococcus Chwavq1971-29-11 10:08:00* Test Item Value Reference Range Interpretation Comments Group A Streptococcus Screen (test code = 78058-6) NEGATIVE NEG ATIVE [facility] CenterInfluenza Virus Types A,B Antigen 2019-08-25 10:07:00* Test Item Value Reference Range Interpretation Comments Influenza Virus Types A,B Antigen (test code = 45844-1) NEGATIVE NEGATIVE [facility] CenterCHEST 2 IFQIX5781-07-75 09:34:00 [facility] [address] [place] [address] Patient Name: ASHLEE BARNETT MR #: [id number] : 1980 Age/Sex: 39/M Req #: [id number] Adm Physician: Ordered by: FLORIAN JUNIOR MD Report #: [id number] Location: ER Room/Bed: Procedure: [id number] DX/CHEST 2 VIEWS Exam Date: 08/25/19 Exam Time: 914 REPORT STATUS: Signed EXAMINAT ION: CHEST 2 VIEWS INDICATION: Cough, chest pain COMPARISON: Ches t radiograph of 05/09/2017 FINDINGS: LINES/TUBES:None LUNGS:Th e lung volumes are low. Bilateral multifocal patchy opacities, most notably at the right midlung. PLEURA:No pleural effusion or pneumothorax. MEDIAS TINUM:The cardiomediastinal silhouette appears normal in size and shape. STEFANIA MELISSA/SOFT TISSUES:No acute osseous injury. ABDOMEN:No free air under the lesvia phragm. IMPRESSION: Low lung volumes with new bilateral multifocal pa tchy opacities most notably at the right midlung zone, consistent with multifo princess pneumonia. Atypical/opportunistic infections are possible in this patient with history of HIV. Signed by: Humberto Browning MD on 08/25/2019 9:39 AM Dictated By: HUMBERTO BROWNING MD 8 COPY TO: JASEN JUNIOR MD CD4 HELPER [id number] 15:09:00* Test Item Value Reference Range Interpretation Comments CD4 LYMPHOCYTES (test code = CD4L) 11.8 % 30.8-58.5 A RBC (test code = RBCLC) 4.32 x10E6/uL 4.14-5.80 HGB (test code = HGBLC) 11.5 g/dL 13.0-17.7 A HCT (test code = HCTLC) 35.7 % 37.5-51.0 A MCV (test code = MCVLC) 83 fL 79-97 MCH (test code = MCHLC) 26.6 pg 26.6-33.0 MCHC (test code = MCHCLC) 32.2 g/dL 31.5-35.7 RDW (test code = RDWLC) 16.8 % 12.3-15.4 A PLT (test code = PLTLC) 104 x10E3/uL 150-450 A NEUT % (test code = NT%LC) 65 % Not Estab. LYMPH % (test code = LY%LC) 24 % Not Estab. MONO % (test code = MO%LC) 9 % Not Estab. EOS % (test code = EO%LC) 2 % Not Estab. BASO % (test code = BA%LC) 0 % Not Estab. NEUT # (test code = NT#LC) 4.4 x10E3/uL 1.4-7.0 LYMPH # (test code = LY#LC) 1.6 x10E3/uL 0.7-3.1 MONO # (test code = MO#LC) 0.6 x10E3/uL 0.1-0.9 EOS # (test code = EO#LC) 0.1 x10E3/uL 0.0-0.4 BASO # (test code = BA#LC) 0.0 x10E3/uL 0.0-0.2 ABSOLUTE CD4+ CELLS (test code = CD4A) 189 /uL 359-1519 A WBC CD4 (test code = WBCCD) 6.8 x10E3/uL 3.4-10.8 BASIC METABOLIC [id number] 05:39:00* Test Item Value Reference Range Interpretation Comments SODIUM (test code = NA) 144 mmol/L 136-145 N POTASSIUM (test code = K) 4.3 mmol/L 3.5-5.1 N CHLORIDE (test code = CL) 118.0 mmol/L 98-107 H CARBON DIOXIDE (test code = CO2) 20.0 mmol/L 21-32 L ANION GAP (test code = GAP) 10.3 10-20 N GLUCOSE (test code = GLU) 86 mg/dL 74-106 N BLOOD UREA NITROGEN (test code = BUN) 21 mg/dL 7-18 H GLOMERULAR FILTRATION RATE (test code = GFR) 57 mL/min >=60 Estimated GFR by using Modified MDRD formula.Chronic kidney disease is defined as either kidney damageor GFR <60 mL/min/1.73 m2 for >3 months. CREATININE (test code = CREAT) 1.40 mg/dL 0.7-1.3 H BUN/CREATININE RATIO (test code = BUN/CREA) 15.2 10-20 N CALCIUM (test code = CA) 8.7 mg/dL 8.5-10.1 N BASIC METABOLIC [id number] 05:29:00* Test Item Value Reference Range Interpretation Comments SODIUM (test code = NA) 144 mmol/L 136-145 N POTASSIUM (test code = K) 4.3 mmol/L 3.5-5.1 N CHLORIDE (test code = CL) 118.0 mmol/L 98-107 H CARBON DIOXIDE (test code = CO2) mmol/L 21-32 ANION GAP (test code = GAP) 10-20 GLUCOSE (test code = GLU) mg/dL 74-106 BLOOD UREA NITROGEN (test code = BUN) mg/dL 7-18 GLOMERULAR FILTRATION RATE (test code = GFR) mL/min >=60 CREATININE (test code = CREAT) mg/dL 0.7-1.3 BUN/CREATININE RATIO (test code = BUN/CREA) 10-20 CALCIUM (test code = CA) mg/dL 8.5-10.1 - US RETROPERITONEAL [id number] 20:37:00 Name: ASHLEE BARNETT [facility] : 1980 Age/S: 39 / M [address] [facility] Unit #: [id number] Loc: [place] [address] Phys: Donal Yanez NP Acct: [id number] Dis Date: Status: ADM IN PHONE #: [phone] Exam Date: 06/21/20192013 FAX #: [phone] Reason: JEROME EXAMS: CPT CODE: [id number] US RETROPERITONEAL COM [id number] REASON FOR EXAM: JEROME EXAM ORDER DATE: [...] MD; Donal Yanez NP Technologist: Tuan Mccormick Trnalb Date/Time: 06/21/2019 (2036) Alvin Orig Print D/T: S: 06/21/2019 (2039) Probe: PAGE 1 Signed Report URINALYSIS [id number] 04:13:00* Test Item Value Reference Range Interpretation Comments UA COLOR (test code = COLU) YELLOW YELLOW UA APPEARANCE (test code = APPU) CLEAR CLEAR UA GLUCOSE DIPSTICK (test code = DGLUU) NEGATIVE mg/dL NEGATIVE UA BILIRUBIN DIPSTICK (test code = BILU) NEGATIVE mg/dL NEGATIVE UA KETONE DIPSTICK (test code = KETU) NEGATIVE mg/dL NEGATIVE UA SPECIFIC GRAVITY (test code = SGU) 1.022 1.001-1.035 UA BLOOD DIPSTICK (test code = SRIDHAR) 0.03 mg/dL (Trace) mg/dL NEGATI VE A UA PH DIPSTICK (test code = ADAMARIS) 5.5 5.0-8.0 UA PROTEIN DIPSTICK (test code = PROU) 100 (2+) mg/dL NEGATIVE A UA UROBILINIOGEN DIPSTICK (test code = URO) Normal mg/dL NEGATIVE UA NITRITE DIPSTICK (test code = NIKOLE) NEGATIVE NEGATIVE UA LEUKOCYTE ESTERASE W REFLEX (test code = LEUUR) NEGATIVE Juliano/uL NEGATIVE UA WBC (test code = WBCU) 0-5 per HPF 0-5 UA RBC (test code = RBCU) 6-10 #/HPF 0-5 A UA EPITHELIAL CELLS (test code = EPIU) Rare (0-1/hpf) per HPF FEW UA BACTERIA (test code = BACU) NONE SEEN #/HPF NONE UA MUCUS (test code = MUCU) FEW #/LPF FEW Urine Source? Clean [id number]-[id number] 01:56:00* Test Item Value Reference Range Interpretation Comments D-DIMER (test code = DDIMER) 391.00 ng/mLFEU 0-500 N Clinical Cut-off value for D-Dimer is 500 ng/mL FEU. Comment: [employer] [...] surgery within previous 4 weeks -Disseminated malignancies -Aortic aneurysm -Sepsis, severe infections, pneumonia, severe skin infections -Liver cirrhosis - COMPREHENSIVE METABOLIC [id number] 01:51:00* Test Item Value Reference Range Interpretation Comments SODIUM (test code = NA) 139 mmol/L 136-145 N POTASSIUM (test code = K) 4.2 mmol/L 3.5-5.1 N CHLORIDE (test code = CL) 111.0 mmol/L 98-107 H CARBON DIOXIDE (test code = CO2) 23.0 mmol/L 21-32 N ANION GAP (test code = GAP) 9.2 10-20 L GLUCOSE (test code = GLU) 101 mg/dL 74-106 N BLOOD UREA NITROGEN (test code = BUN) 38 mg/dL 7-18 H GLOMERULAR FILTRATION RATE (test code = GFR) 31 mL/min >=60 Estimated GFR by using Modified MDRD formula.Chronic kidney disease is defined as either kidney damageor GFR <60 mL/min/1.73 m2 for >3 months. CREATININE (test code = CREAT) 2.40 mg/dL 0.7-1.3 H BUN/CREATININE RATIO (test code = BUN/CREA) 16.2 10-20 N TOTAL PROTEIN (test code = PROT) 8.3 gram/dL 6.4-8.2 H ALBUMIN (test code = ALB) 3.3 g/dL 3.4-5.0 L GLOBULIN (test code = GLOB) 5.0 gram/dL 2.7-4.2 H ALBUMIN/GLOBULIN RATIO (test code = A/G) 0.7 0.75-1.50 L CALCIUM (test code = CA) 8.9 mg/dL 8.5-10.1 N BILIRUBIN TOTAL (test code = BILT) 0.40 mg/dL 0.0-1.0 N SGOT/AST (test code = AST) 20 IUnit/L 15-37 N SGPT/ALT (test code = ALT) 24 IUnit/L 12-78 N ALKALINE PHOSPHATASE TOTAL (test code = ALKP) 118 IUnit/L 45-117 H Note change in reference range due to change in reagent. COMPREHENSIVE METABOLIC [id number] 01:50:00* Test Item Value Reference Range Interpretation Comments SODIUM (test code = NA) 139 mmol/L 136-145 N POTASSIUM (test code = K) 4.2 mmol/L 3.5-5.1 N CHLORIDE (test code = CL) 111.0 mmol/L 98-107 H CARBON DIOXIDE (test code = CO2) mmol/L 21-32 ANION GAP (test code = GAP) 10-20 GLUCOSE (test code = GLU) mg/dL 74-106 BLOOD UREA NITROGEN (test code = BUN) mg/dL 7-18 GLOMERULAR FILTRATION RATE (test code = GFR) mL/min >=60 CREATININE (test code = CREAT) mg/dL 0.7-1.3 BUN/CREATININE RATIO (test code = BUN/CREA) 10-20 TOTAL PROTEIN (test code = PROT) gram/dL 6.4-8.2 ALBUMIN (test code = ALB) g/dL 3.4-5.0 GLOBULIN (test code = GLOB) gram/dL 2.7-4.2 ALBUMIN/GLOBULIN RATIO (test code = A/G) 0.75-1.50 CALCIUM (test code = CA) mg/dL 8.5-10.1 BILIRUBIN TOTAL (test code = BILT) mg/dL 0.0-1.0 SGOT/AST (test code = AST) IUnit/L 15-37 SGPT/ALT (test code = ALT) IUnit/L 12-78 ALKALINE PHOSPHATASE TOTAL (test code = ALKP) IUnit/L 45-117 CBC W/AUTO [id number] 01:30:00* Test Item Value Reference Range Interpretation Comments WHITE BLOOD CELL (test code = WBC) 9.6 K/mm3 4.5-12.5 N RED BLOOD CELL (test code = RBC) 4.98 mill/mm3 4.0-5.8 N HEMOGLOBIN (test code = HGB) 13.0 gram/dL 13.0-17.5 N HEMATOCRIT (test code = HCT) 40.1 % 42.0-52.0 L MEAN CELL VOLUME (test code = MCV) 80.5 fL 80-98 N MEAN CELL HGB (test code = MCH) 26.1 picogram 27.0-33.0 L MEAN CELL HGB CONCETRATION (test code = MCHC) 32.4 gram/dL 33.0-36. 0 L RED CELL DISTRIBUTION WIDTH (test code = RDW) 15.8 % 11.6-16. 2 N RED CELL DISTRIBUTION WIDTH SD (test code = RDW-SD) 45.6 fL 37 .0-51.0 N PLATELET COUNT (test code = PLT) 133 K/mm3 150-450 L MEAN PLATELET VOLUME (test code = MPV) 10.8 fL 6.7-11.0 N NEUTROPHIL % (test code = NT%) 62.8 % 39.0-69.0 N IMMATURE GRANULOCYTE % (test code = IG%) 0.6 % 0.0-5.0 N LYMPHOCYTE % (test code = LY%) 23.3 % 25.0-55.0 L MONOCYTE % (test code = MO%) 10.8 % 0.0-10.0 H EOSINOPHIL % (test code = EO%) 2.2 % 0.0-5.0 N BASOPHIL % (test code = BA%) 0.3 % 0.0-1.0 N NUCLEATED RBC % (test code = NRBC%) 0.0 % 0-0 N NEUTROPHIL # (test code = NT#) 6.00 K/mm3 1.8-7.7 N IMMATURE GRANULOCYTE # (test code = IG#) 0.06 x10 3/uL 0-0.03 H LYMPHOCYTE # (test code = LY#) 2.23 K/mm3 1.0-5.0 N MONOCYTE # (test code = MO#) 1.03 K/mm3 0-0.8 H EOSINOPHIL # (test code = EO#) 0.21 K/mm3 0.0-0.5 N BASOPHIL # (test code = BA#) 0.03 K/mm3 0.0-0.2 N NUCLEATED RBC # (test code = NRBC#) 0.00 K/mm3 0.0-0.1 N MANUAL DIFF REQUIRED (test code = MDIFF) NO CBC W/AUTO [id number] 01:27:00* Test Item Value Reference Range Interpretation Comments WHITE BLOOD CELL (test code = WBC) K/mm3 4.5-12.5 RED BLOOD CELL (test code = RBC) mill/mm3 4.0-5.8 HEMOGLOBIN (test code = HGB) 13.0 gram/dL 13.0-17.5 N HEMATOCRIT (test code = HCT) % 42.0-52.0 MEAN CELL VOLUME (test code = MCV) fL 80-98 MEAN CELL HGB (test code = MCH) picogram 27.0-33.0 MEAN CELL HGB CONCETRATION (test code = MCHC) gram/dL 33.0-36. 0 RED CELL DISTRIBUTION WIDTH (test code = RDW) % 11.6-16. 2 RED CELL DISTRIBUTION WIDTH SD (test code = RDW-SD) fL 37 .0-51.0 PLATELET COUNT (test code = PLT) K/mm3 150-450 MEAN PLATELET VOLUME (test code = MPV) fL 6.7-11.0 NEUTROPHIL % (test code = NT%) % 39.0-69.0 IMMATURE GRANULOCYTE % (test code = IG%) % 0.0-5.0 LYMPHOCYTE % (test code = LY%) % 25.0-55.0 MONOCYTE % (test code = MO%) % 0.0-10.0 EOSINOPHIL % (test code = EO%) % 0.0-5.0 BASOPHIL % (test code = BA%) % 0.0-1.0 NEUTROPHIL # (test code = NT#) K/mm3 1.8-7.7 LYMPHOCYTE # (test code = LY#) K/mm3 1.0-5.0 MONOCYTE # (test code = MO#) K/mm3 0-0.8 EOSINOPHIL # (test code = EO#) K/mm3 0.0-0.5 BASOPHIL # (test code = BA#) K/mm3 0.0-0.2 - XR SHOULDER 2 + V [id number] 01:06:00 FAX: Sendy Gutierrez MD [phone] [place]: B St: REG Name: ASHLEE TOM [facility] : [birth year] Age/S: 39/M [address] Unit #: [id number] Loc: [facility] [place] [address] Phys: Sendy Gutierrez MD Acct: [id number] Dis Date: Status: REG ER PHONE #: [phone] Exam Date: 06/21/2019 0020 FAX #: [phone] Reason: pain EXAMS: CPT CODE: [id number] XR SHOULDER 2 + [place] [id number] HISTORY: Pain Location: C3 FINDINGS: 3 images of the right shoulder are provided. No acute fracture, dislocation, or other acute osseous abnormality is d emonstrated. IMPRESSION: 1. No acute f racture. No other acute osseous abnormality. at 0106 Reported and s igned by: Saturnino Brito MD CC: Sendy Gutierrez MD Technologist: Chichi Jarquin Trnscrd Date/Time/By: 06/21/2019 (010) : By: [email or web address] Orig Print D/T: S: 06/21/2019 (010) PAGE 1 Signed Report
[2020-03-02] MEDS ORDERED: DIAZEPAM 5 MG TAB PO ONE (10:45)
[2020-03-02] MEDS ORDERED: ENALAPRIL MALEATE 10 MG TAB PO ONE (10:45)
[2020-03-02 11:31] VITALS: BP 144/93
--- NOTE | 2020-03-02 12:03 | Emergency Department Note ---
History of Present Illnes History of Present Illness Chief Complaint: General Medicine Complaints History of Present Illness This is a 40 year old male c/o right calf pain x 2 days painful to touch denies trauma denies sitting for long periods of time states it's muscular and has had it in the past. Historian: Patient Arrival Mode: Car Bankruptcy Legal Assistant Required: No Onset (how long ago): day(s) (2) Location: RIGHT CALF Quality: PAIN Radiation: non-radiation Severity: moderate Onset quality: sudden Timing of current episode: constant Progression: worsening Chronicity: recurrent Relieving factors: none Exacerbating factors: none Treatments prior to arrival: none Past Medical/Family History Physician Review I have reviewed the patient's past medical and family history. Any updates have been documented here. Past Medical History Recent Fever: No Clinical Suspicion of Infectio: No New/Unexplained Change in Ment: No Past Medical History: Hypertension, HIV Other Medical History: PNEUMONIA, FUNGAL MENINGITIS (D/T COCCIDIOIDES IMMITIS), VIT D DEFICIENCY Past Surgical History: Colon Resection Other Surgery: COLON RESECTION Social History Smoking Cessation: Never Smoker Counseling Performed: No Alcohol Use: None Any Illegal Drug Use: No TB Exposure/Symptoms: No Physically hurt or threatened: No Other Last Tetanus: UNK Any Pre-Existing Lines (PICC,: No Is patient up to date on immun: Yes Last Flu: utd Last Pneumovax: ood Review of Systems Review of Systems Constitutional: no symptoms EENTM: no symptoms Cardiovascular: no symptoms Respiratory: no symptoms Gastrointestinal: no symptoms Genitourinary: no symptoms Musculoskeletal: as per HPI Neurological: no symptoms Psychological: no symptoms Endocrine: no symptoms Hematological/Lymphatic: no symptoms Review of other systems All other systems reviewed and negative. Physical Exam Related Data Allergies: Coded Allergies: No Known Allergies (Unverified , 12/17/15) Triage Vital Signs Vital Signs Date Time Temp Pulse Resp B/P (MAP) Pulse Ox O2 Delivery O2 Flow Rate FiO2 03/02/20 10:38 99.5 89 20 190/116 98 Physical Exam CONSTITUTIONAL Constitutional: well-developed, well-nourished HENT HENT: normocephalic, atraumatic, oropharynx clear/moist, nose normal HENT L/R: left ext ear normal, right ext ear normal EYES Eyes: PERRL, conjunctivae normal NECK Neck: ROM normal PULMONARY Pulmonary: effort normal, breath sounds normal CARDIOVASCULAR Cardiovascular: regular rhythm, heart sounds normal, capillary refill normal, normal rate GASTROINTESTINAL Abdominal: soft, nontender, bowel sounds normal GENITOURINARY Genitourinary: exam deferred SKIN Skin: warm, dry MUSCULOSKELETAL Musculoskeletal: other (TENDERNESS RIGHT CALF, NO SWELLING, BILAT VARICOSE VEINS) NEUROLOGICAL Neurological: alert, oriented x 3, no gross motor or sensory deficits PSYCHOLOGICAL Psychological: mood/affect normal, judgement normal Results Imaging Imaging results reviewed: Yes Impressions VENOUS DOPPLER RIGHT LE NEGATIVE FOR DVT Critical Care Time Subsequent provider I assumed direction of critical care for this patient from another provider of my specialty. Assessment & Plan Assessment & Plan Final Impression: (1) Muscle spasm Assessment & Plan DC HOME, VALIUM 5 MG PO TID PRN (#15) Depart Disposition: HOME, SELF-CARE Last Vital Signs Date Time Temp Pulse Resp B/P (MAP) Pulse Ox O2 Delivery O2 Flow Rate FiO2 03/02/20 11:31 70 16 100 03/02/20 11:30 144/93 03/02/20 10:38 99.5 Home Meds Reported Medications Ergocalciferol (Vitamin D2) (Vitamin D2) 50 Mcg Capsule, 49300 UNITS PO WEEKLY 08/25/19 Dolutegravir Sodium (Tivicay) 50 Mg Tablet, 50 MG PO DAILY 08/25/19 Enalapril Maleate (VASOTEC) 10 Mg Tablet, 10 MG PO DAILY 09/20/16 [Prezcobix 800-150MG] No Conflict Check, 1 TAB PO DAILY 12/18/15 [Noxafil] No Conflict Check, 200 MG PO BIDWM 12/18/15 Medications in the ED Enalapril Maleate 10 mg ONCE ONCE PO ; Start 03/02/20 at 10:45; Stop 03/02/20 at 10:48; Status DC Diazepam 5 mg NOW ONCE PO ; Start 03/02/20 at 10:45; Stop 03/02/20 at 10:48; Status DC CHEO KHANNA MD March 02, 2020 12:03
== END 2020-03-02 11:51 | disposition home or self-care (01) ==
LOC: ER 10:35
DX: M79.661 Pain in right lower leg (principal); M62.838 Other muscle spasm; I10 Essential (primary) hypertension; B20 Human immunodeficiency virus [HIV] disease; Z87.01 Personal history of pneumonia (recurrent); Z98.0 Intestinal bypass and anastomosis status
CPT/HCPCS: 93971; 99284

== ENCOUNTER 2020-05-12 23:19 | Emergency (ER) | payer OTHER ==
[~2020-05-12] VITALS: Ht 167.6 cm; Wt 75.7 kg
[2020-05-12] MEDS ORDERED: ACETAMINOPHEN 325 MG TAB PO ONE (23:45)
--- NOTE | 2020-05-13 00:46 | Emergency Department Note ---
History of Present Illnes History of Present Illness Chief Complaint: Extremity Trauma/Pain History of Present Illness This is a 40 year old male PATIENT WAS HAMMERING PICTURE FRAMES AND FELT A SUDDEN PAIN TO RIGHT ANTERIOR DELTOID AREA, DOES NOT RADIATE TO CHEST/OR BACK. DENIES CHEST PAIN, BACK PAIN, OR JAW PAIN. PATIENT IN NO DISTRESS, . Historian: Patient Arrival Mode: Car Onset (how long ago): hour(s) (1) Location: RIGHT SHOULDER Quality: PAIN Radiation: Reports non-radiation Severity: mild Onset quality: sudden Duration (how long): hour(s) (1) Timing of current episode: constant Progression: unchanged Chronicity: new Context: Reports trauma/injury (OCCURRED WHILE HAMMERING) Relieving factors: none Exacerbating factors: movement Associated symptoms: Reports denies other symptoms Past Medical/Family History Physician Review I have reviewed the patient's past medical and family history. Any updates have been documented here. Past Medical History Recent Fever: No Clinical Suspicion of Infectio: No New/Unexplained Change in Ment: No Past Medical History: Hypertension, HIV Other Medical History: PNEUMONIA, FUNGAL MENINGITIS (D/T COCCIDIOIDES IMMITIS), VIT D DEFICIENCY Past Surgical History: Colon Resection Other Surgery: COLON RESECTION Social History Smoking Cessation: Never Smoker Counseling Performed: No Alcohol Use: None Any Illegal Drug Use: No Other Last Tetanus: UNK Review of Systems Review of Systems Constitutional: Reports no symptoms EENTM: Reports no symptoms Cardiovascular: Reports no symptoms Respiratory: Reports no symptoms Gastrointestinal: Reports no symptoms Genitourinary: Reports no symptoms Musculoskeletal: Reports as per HPI Integumentary: Reports no symptoms Neurological: Reports no symptoms Psychological: Reports no symptoms Endocrine: Reports no symptoms Hematological/Lymphatic: Reports no symptoms Physical Exam Related Data Allergies: Coded Allergies: No Known Allergies (Unverified , 12/17/15) Triage Vital Signs Vital Signs Date Time Temp Pulse Resp B/P (MAP) Pulse Ox O2 Delivery O2 Flow Rate FiO2 05/12/20 23:29 98.6 76 20 154/99 99 Vital signs reviewed: Yes Physical Exam CONSTITUTIONAL Constitutional: Present well-developed, Present well-nourished HENT HENT: Present normocephalic, Present atraumatic, Present oropharynx clear/moist, Present nose normal HENT L/R: Present left ext ear normal, Present right ext ear normal EYES Eyes: Reports PERRL, Reports conjunctivae normal NECK Neck: Present ROM normal PULMONARY Pulmonary: Present effort normal, Present breath sounds normal CARDIOVASCULAR Cardiovascular: Present regular rhythm, Present heart sounds normal, Present capillary refill normal, Present normal rate GASTROINTESTINAL Abdominal: Present soft, Present nontender, Present bowel sounds normal GENITOURINARY Genitourinary: Present exam deferred SKIN Skin: Present warm, Present dry MUSCULOSKELETAL Musculoskeletal: Present ROM normal, Present tenderness (MILD ANTERIOR SHOULDER) NEUROLOGICAL Neurological: Present alert, Present oriented x 3, Present no gross motor or sensory deficits PSYCHOLOGICAL Psychological: Present mood/affect normal, Present judgement normal Results Imaging Imaging results reviewed: Yes Impressions X-ray 2 views of the right shoulder HISTORY: Pain. COMPARISON: None available. FINDINGS: Bones: No acute displaced fracture. Osseous alignment is within normal limits. Joints: The joint spaces are well-maintained. Soft tissues: The soft tissues appear unremarkable. IMPRESSION: No acute radiographic abnormality of the right shoulder. Signed by: Olga Lidia Aguilera MD on 05/13/2020 12:47 AM Dictated By: OLGA LIDIA AGUILERA MD Transcribed By: JOSE on 05/13/2046 COPY TO: JACEY PATINO MD~ Assessment & Plan Medical Decision Making MDM RIGHT SHOULDER PAIN S/P HAMMERING XRAY ORDERED TO EVAL FOR ABNORMALITY Assessment & Plan Final Impression: (1) Right shoulder strain Depart Disposition: HOME, SELF-CARE Last Vital Signs Date Time Temp Pulse Resp B/P (MAP) Pulse Ox O2 Delivery O2 Flow Rate FiO2 05/12/20 23:29 98.6 76 20 154/99 99 Home Meds Reported Medications Ergocalciferol (Vitamin D2) (Vitamin D2) 50 Mcg Capsule, 86351 UNITS PO WEEKLY 08/25/19 Dolutegravir Sodium (Tivicay) 50 Mg Tablet, 50 MG PO DAILY 08/25/19 Enalapril Maleate (VASOTEC) 10 Mg Tablet, 10 MG PO DAILY 09/20/16 [Prezcobix 800-150MG] No Conflict Check, 1 TAB PO DAILY 12/18/15 [Noxafil] No Conflict Check, 200 MG PO BIDWM 12/18/15 Medications in the ED Acetaminophen 650 mg ONCE ONCE PO Last administered on 05/12/20at 23:50; Admin Dose 650 MG; Start 05/12/20 at 23:45; Stop 05/12/20 at 23:46 JACEY PATINO MD May 13, 2020 00:46
--- NOTE | 2020-05-13 00:50 | Diagnostic Imaging Report ---
X-ray 2 views of the right shoulder HISTORY: Pain. COMPARISON: None available. FINDINGS: Bones: No acute displaced fracture. Osseous alignment is within normal limits. Joints: The joint spaces are well-maintained. Soft tissues: The soft tissues appear unremarkable. IMPRESSION: No acute radiographic abnormality of the right shoulder. Signed by: Juan Diego Thayer MD on 05/13/2020 12:47 AM
--- OUTSIDE RECORDS SUMMARY | 2020-05-13 02:14 | XMS REPORT | Clinical Summary ---
Author Author [facility] ict Organization [facility] ict Address Unknown Phone Unavailable Care Team Providers Care Air Bag Builder Name Role Phone Parth Guzman MD PCP Allergies No Known Allergies Medications End Date Status Medication Sig Dispensed Refills Start Date Active enalapril (VASOTEC) 10 mg Take 1 tablet 90 tablet 6 tabletIndications: by mouth 0 Essential hypertension daily. Active ergocalciferol (VITAMIN Take 1 12 capsule 3 D2) 1,250 mcg (50,000 capsule by 0 unit) capsuleIndications: mouth ONCE A Vitamin D deficiency WEEK. Active dolutegravir (TIVICAY) 50 Take 1 tablet [...] Coccidioidomycosis daily (with meningitis meals). 09/16/2019 Discontinued (Reorder) ergocalciferol (VITAMIN Take 1 [...] conjunctivitis of daily Please both eyes use [facility]. 09/16/2019 Discontinued (Therapy comple ashish) ketoconazole (NIZORAL) 2 Apply to 30 g 0 0 % topical affected area 9 creamIndications: Rash 2 times daily and other nonspecific Please use skin eruption [facility]EL. 09/16/2019 Discontinued (Therapy comple ashish) olopatadine [...] for the next 4 days: Please use [facility]WE[facility] LABEL. 09/16/2019 Discontinued (Therapy comple ashish) benzonatate (TESSALON Take 1-2 30 capsule 0 08/06 PERLES) 100 mg capsules by 9 capsuleIndications: Acute mouth every 8 bronchitis, unspecified hours as organism needed for cough:Please use [facility]AN LABEL. 09/16/2019 Discontinued (Therapy comple ashish) loratadine (CLARITIN) 10 Take 1 tablet 30 tablet 0 mg tabletIndications: by mouth 9 Acute bronchitis, daily Please unspecified organism use [facility]WEGIAN LABEL. 12/27/2019 Discontinued (Reorder) enalapril (VASOTEC) 10 [...] 2 times Coccidioidomycosis daily (with meningitis meals). 03/14/2020 Discontinued (Reorder) enalapril (VASOTEC) 10 mg Take 1 tablet 90 tablet 6 tabletIndications: by mouth 0 Essential hypertension daily. 03/14/2020 Discontinued (Reorder) ergocalciferol (VITAMIN Take 1 12 capsule 3 D2) 1,250 mcg (50,000 capsule by 0 unit) capsuleIndications: mouth weekly. Vitamin D deficiency 03/14/2020 Discontinued (Reorder) dolutegravir (TIVICAY) 50 Take 1 tablet 30 tablet 11 mg tabletIndications: by mouth 0 Asymptomatic human daily. immunodeficiency virus (HIV) infection status 03/14/2020 Discontinued (Reorder) darunavir-cobicistat Take 1 tablet 30 tablet 11 (PREZCOBIX) 800-150 mg-mg by mouth 0 Tab tabletIndications: daily. Asymptomatic human immunodeficiency virus (HIV) infection status 03/14/2020 Discontinued (Reorder) posaconazole (NOXAFIL) Take 2 120 tablet 11 100 mg delayed release tablets by 0 tabletIndications: mouth 2 times Coccidioidomycosis daily (with meningitis meals). 03/14/2020 Discontinued (Therapy comple ashish) diazePAM (VALIUM) 5 mg 0 tablet 0 Status Hospital, Clinic, or Ordered Dose Route [...] tion status 12/19/2006 Seizure disorder on meds 2016 Overview: NO DM, CAD,CANCER Encounters Care Team Description Date Type Specialty Parth Guzman MD Asymptomatic human immunodeficiency viru s (HIV) infection status (Primary Dx); Essential hypertension; Vitamin D deficiency; Coccidioidomycosis meningitis 03/14/2020 Telephonic Infectious Diseases Encounter Parth Guzman MD Essential hypertension; Vitamin D deficiency; Asymptomatic human immunodeficiency virus (HIV) infection status; 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 Orders Only Infectious Diseases Parth Guzman MD Asymptomatic human immunodeficiency viru s (HIV) infection status (Primary Dx); Essential hypertension; Vitamin D deficiency; Coccidioidomycosis meningitis; Seiz[facility]; Healthcare maintenance 09/16/2019 Office Visit Infectious Diseases Paulette Spann G, FISH HATCHERY MAN Acute bronchitis, unspecified organism ( Primary Dx) 08/21/2019 Same Day Family Practice after 05/13/2019 Immunizations Name Administration Dates Next Due HPV 9-valent 09/16/2019 Hepatitis B Vaccine 12/03/2007 12/31/2007 Influenza A (H1N1) Vac 09/05/2009 Injection Influenza Vaccine 08/17/2015, 08/16/2014, , 09/17/2011, 09/20/2010, 08/16/2008, 07/17/2007, Influenza Vaccine, 09/25/2017 Seasonal, Injectable PPD 08/18/2012, 2011, 08/16/2008, 12/23/2007 (Deferred: Other [...] Comments Vital Sign 125/79 09/16/2019 10:49 AM [employer] Blood Pressure 83 09/16/2019 10:49 AM [employer] Pulse 36.8 C (98.3 F) 09/16/2019 10:49 AM [employer] Temperature 18 09/16/2019 10:49 AM [employer] CO[employer]INATOR Respiratory Rate 100% 08/21/2019 1:31 PM [employer] Oxygen Saturation - - Inhaled Oxygen Concentration 73.7 kg (162 lb 6.4 oz) 09/16/2019 10:49 AM [employer] CO[employer]INATOR Weight 167.6 cm (5' 6") 09/16/2019 10:49 AM [employer] CO[employer]INATOR Height 26.21 09/16/2019 10:49 AM [employer] CO[employer]INATOR Body Mass Index Plan of Treatment Care Team Description Date Type Specialty Parth Guzman MD [address] [place] [address] [phone] Labs 08/15/2020 Lab Appointment Lab Parth Guzman MD [address] [place] [address] [phone] Follow-Up 08/29/2020 Office Visit Infectious Diseases Health Maintenance Due Date Last Done Comments IMM Influenza Seasonal 07/06/2020 09/25/2017, Oct to December (>/= 19 yrs) 08/17/2015, 08/16/2014, Additional history exists Goals Goal Patient Associated Recent Progress Patient-Stat Aut hor Goal Type Problems ed? Eat more fruits and vegetables Diet No Abel, Tania ERMIAS Lemus Reduce salt intake to 2 grams Diet No Abel, Tania per day or less ERMIAS Lemus Procedures Comments Procedure Name Priority Date/Time Associated Diag nosis URINALYSIS Routine 03/03/2020 Asymptomatic hu man 9:07 AM CDT immunodeficiency virus (HIV) infection status CHLAM/GC DNA AMPLI Routine 03/03/2020 Asymptomati c human 9:07 AM CDT immunodeficiency virus (HIV) infection status URINALYSIS Routine 03/03/2020 Asymptomatic hu man 9:07 AM CDT immunodeficiency virus (HIV) infection status QUANTIFERON TB GOLD PLUS Routine 03/03/2020 Asymp tomatic human (BKR) 9:06 AM CDT immunodeficiency vi reagan (HIV) infection status HEPATITIS C VIRUS AB Routine 03/03/2020 Asymptoma tic human 9:06 AM CDT immunodeficiency virus (HIV) infection status HEMOGLOBIN A1C Routine 03/03/2020 Asymptomatic hu man 9:06 AM CDT immunodeficiency virus (HIV) infection status VIT D, 25-HYDROXY Routine 03/03/2020 Asymptomatic human 9:06 AM CDT immunodeficiency virus (HIV) infection status THYROID STIMULATING Routine 03/03/2020 Asymptomat ic human HORMONE (TSH) 9:06 AM CDT immunodeficiency vi reagan (HIV) infection status QUANTIFERON TB GOLD Routine 03/03/2020 Asymptomat ic human 9:06 AM CDT immunodeficiency virus (HIV) infection status CYTOMEGALOVIRUS (CMV) AB, Routine 03/03/2020 Asym ptomatic human IGG 9:06 AM CDT immunodeficiency vi reagan (HIV) infection status BASIC METABOLIC PANEL Routine 03/03/2020 Asymptom atic human 9:06 AM CDT immunodeficiency virus (HIV) infection status SYPHILIS MONITOR FOR Routine 03/03/2020 Asymptoma tic human TREATMENT 9:06 AM CDT immunodeficiency vi reagan (HIV) infection status CD4/CD8 RATIO GRP Routine 03/03/2020 Asymptomatic human 9:06 AM CDT immunodeficiency virus (HIV) infection status HIV RNA VIRAL LOAD Routine 03/03/2020 Asymptomati c human 9:06 AM CDT immunodeficiency virus (HIV) infection status LIPID PROFILE Routine 03/03/2020 Asymptomatic hu man 9:06 AM CDT immunodeficiency virus (HIV) infection status LIVER PROFILE Routine 03/03/2020 Asymptomatic hu man 9:06 AM CDT immunodeficiency virus (HIV) infection status QUANTIFERON TB GOLD PLUS Routine 09/01/2019 Asymp tomatic human (BKR) 9:45 AM [employer] immunodeficiency vi reagan (HIV) infection status DIFFERENTIAL, MANUAL-WAM Routine 09/01/2019 Asymp tomatic human 9:45 AM [employer]IN[employer] immunodeficiency virus (HIV) infection status CBC Routine 09/01/2019 Asymptomatic hu man 9:45 AM [employer]IN[employer] immunodeficiency virus (HIV) infection status HEPATITIS C VIRUS AB Routine 09/01/2019 Asymptoma tic human 9:45 AM [employer] immunodeficiency virus (HIV) infection status HEMOGLOBIN A1C Routine 09/01/2019 Asymptomatic hu man 9:45 AM [employer]INATOR immunodeficiency virus (HIV) infection status VIT D, 25-HYDROXY Routine 09/01/2019 Asymptomatic human 9:45 AM [employer]IN[employer] immunodeficiency virus (HIV) infection status THYROID STIMULATING Routine 09/01/2019 Asymptomat ic human HORMONE (TSH) 9:45 AM [employer] CO[employer]INATOR immunodeficiency vi reagan (HIV) infection status QUANTIFERON TB GOLD Routine 09/01/2019 Asymptomat ic human 9:45 AM [employer]INATOR immunodeficiency virus (HIV) infection status BASIC METABOLIC PANEL Routine 09/01/2019 Asymptom atic human 9:45 AM [employer]INATOR immunodeficiency virus (HIV) infection status SYPHILIS MONITOR FOR Routine 09/01/2019 Asymptoma tic human TREATMENT 9:45 AM [employer] CO[employer]INATOR immunodeficiency vi reagan (HIV) infection status CD4/CD8 RATIO GRP Routine 09/01/2019 Asymptomatic human 9:45 AM [employer] CO[employer]INATOR immunodeficiency virus (HIV) infection status HIV RNA VIRAL LOAD Routine 09/01/2019 Asymptomati c human 9:45 AM [employer] CO[employer]INATOR immunodeficiency virus (HIV) infection status LIPID PROFILE Routine 09/01/2019 Asymptomatic hu man 9:45 AM [employer] CO[employer]INATOR immunodeficiency virus (HIV) infection status LIVER PROFILE Routine 09/01/2019 Asymptomatic hu man 9:45 AM [employer] CO[employer]INATOR immunodeficiency virus (HIV) infection status CBC/DIFF Routine 09/01/2019 Asymptomatic hu man 9:45 AM [employer] CO[employer]INATOR immunodeficiency virus (HIV) infection status URINALYSIS Routine 09/01/2019 Asymptomatic hu man 9:42 AM [employer] CO[employer]INATOR immunodeficiency virus (HIV) infection status URINALYSIS Routine 09/01/2019 Asymptomatic hu man 9:42 AM [employer] CO[employer]INATOR immunodeficiency virus (HIV) infection status CHLAM/GC DNA AMPLI Routine 09/01/2019 Asymptomati c human 9:42 AM [employer] CO[employer]INATOR immunodeficiency virus (HIV) infection status after 05/13/2019 Results * Urinalysis (03/03/2020 9:07 AM CDT) Only the most recent of 2 results within the time period is included. Color Yellow Colorless, Straw, [facility] Yellow [facility] Clarity Cloudy (A) Clear [facility] Spec [place], 1.024 1.001 - 1.035 [facility] Ur [facility] pH, Ur 6.0 5.0 - 8.0 [facility] Protein, Ur 3+ (A) Negative mg/dL [facility] Glucose, Ur Negative Negative mg/dL [facility] Ketone, Ur Negative Negative mg/dL [facility] Bilirubin, Ur Negative Negative mg/dL [facility] Nitrite, Ur Negative Negative [facility] Leukocyte Negative Negative mg/dL [facility] Blood, Ur Negative Negative mg/dL [facility] RBC 1 0 - 4 /HPF [facility] WBC 4 0 - 5 /HPF [facility] Epithelial Cell 1 <=1 /HPF [facility] Mucous Present (A) None seen /HPF [facility] Hyaline Cast 1 0 - 2 /LPF [facility] Urobilinogen, <1.0 <1.0 EU/dL [facility] Ur [facility] Specimen Urine Performing Organization Address City/[facility] Ph one Number [facility] [address] [address] * Chlam/GC DNA Amplification (03/03/2020 9:07 AM CDT) Only the most recent of 2 results within the time period is included. Pathologist [facility] Chlamydia Negative Negative [facility] trachomatis [facility] N. gonorrhoeae Negative Negative [facility] Specimen Urine - Voided, urine Narrative Performed At This test utilizes Tour Desk Aptima Combo 2 Assay for target amplification of rRNA [facility] for the qualitative detection of Chlamy lesvia trachomatis and Neisseria gonorrhoeae. Performing Organization Address City/[facility] Ph one Number [facility] [address] [address] * Quantiferon TB Gold Plus (03/03/2020 9:06 AM CDT) Only the most recent of 2 results within the time period is included. QuantiFERON Comment BT [facility] Criteria Comment: The QuantiFERON-TB Gold Plus result is determined by subtracting the Nil value from either TB antigen (Ag) tube. The mitogen tube serves as a control for the test. Quantiferon TB1 0.05 IU/mL BT [facility] Quantiferon TB2 0.05 IU/mL BT [facility] QuantiFERON Nil 0.05 IU/mL BT [facility] Value QuantiFERON 0.58 IU/mL BT [facility] Mitogen Value Specimen Blood Narrative Performed At Performed at: [facility] [address] [address], [place], [place] [id number] Summer Clerk: Brandon Black MD, Phone: [phone] Performing Organization Address [facility] one Number [facility] [address] [place] [address] * Vitamin D, 25-Hydroxycalciferol (03/03/2020 9:06 AM CDT) Only the most recent of 2 results within the time period is included. [facility] Vit D, 35.1 30.0 - 100.0 ng/mL [facility] 25-Hydroxy [facility] Vitamin D Sufficient Sufficient [facility] Interpretation Comment: LAB[facility] Sufficient: >30.0 Insufficient: 20.0 - 29.9 Deficient: <20.0 Specimen Blood Performing Organization Address [facility] one Number [facility] [address] [place] [address] * Cytomegalovirus (CMV) Ab, IgG (03/03/2020 9:06 AM CDT) [facility] Cytomegalovirus >10.00 (>) 0.00 - 0.59 U/mL [facility] (CMV) Ab, IgG Comment: Negative <0.60 Equivocal 0.60 - 0.69 Positive >0.69 Specimen Blood Narrative Performed At Performed at: [facility] [place] [address] Summer Clerk: Jessica Qureshi MD, Phone : [phone] Performing Organization Address [facility] one Number [facility] [place] [address] * Quantiferon TB Gold (In Tube) (03/03/2020 9:06 AM CDT) Only the most recent of 2 results within the time period is included. [facility] QuantiFERON Incubation performed. [facility] Incubation QuantiFERON TB Negative Negative BT [facility] Gold Plus Specimen Blood Narrative Performed At Performed at: [facility] [place] [address] Summer Clerk: Ruddy Tomas MD, Phone: [phone] Performed at: 02 - [facility] [place] [address] [address], [place] [id number] Summer Clerk: Brandon Black MD, Phone: [phone] Performing Organization Address [facility] one Number [facility] [address] [address] * Hemoglobin A1C (03/03/2020 9:06 AM CDT) Only the most recent of 2 results within the time period is included. Hemoglobin A1c 5.2 4.3 - 6.1 % [facility] Estimated 103 70 - 110 mg/dL [facility] Average Glucose [facility] Specimen Blood Performing Organization Address [facility] one Number [facility] [address] [place] [address] * TSH [Thyroid Stimulating Hormone] (03/03/2020 9:06 AM CDT) Only the most recent of 2 results within the time period is included. TSH 2.77 0.45 - 5.33 uIU/mL [facility] Specimen Blood Performing Organization Address [facility] one Number [facility] [address] [place] [address] [phone] * CD4/CD8 Ratio Grp (03/03/2020 9:06 AM CDT) Only the most recent of 2 results within the time period is included. Lymphocyte Abs 1,482.4 % [facility] CD4 Absolute 252 (L) 431-1,623 cells/uL [facility] CD8 Absolute 726 170-1,078 cells/uL [facility] CD4/CD8 Ratio 0.35 (L) 0.86 - 2.05 ratio [facility] WBC 6.8 4.5 - 12.0 K/uL [facility] Lymphs 21.8 21.8 - 50.0 % [facility] CD4% 17.0 (L) 25.0 - 56.0 % [facility] CD8% 49.0 (H) 14.2 - 35.8 % [facility] Specimen Blood Performing Organization Address [facility] one Number [facility] [address] [place] [address] [phone] * Syphilis Monitor for Treatment (03/03/2020 9:06 AM CDT) Only the most recent of 2 results within the time period is included. [facility] RPR Non-reactive Non-reactive [facility] Specimen Blood Performing Organization Address [facility] one Number [facility] [address] [address] [phone] * Liver Profile (03/03/2020 9:06 AM CDT) Only the most recent of 2 results within the time period is included. [facility] Total Protein 7.7 6.0 - 8.3 g/dL [facility] Bilirubin, 0.3 0.2 - 1.2 mg/dL [facility] Total [facility] Alkaline 137 (H) 34 - 104 U/L [facility] Phosphatase [facility] AST 21 13 - 39 U/L [facility] Direct 0.1 0.0 - 0.2 mg/dL [facility] Bilirubin [facility] ALT 20 7 - 52 U/L [facility] Albumin 3.8 (L) 4.2 - 5.5 g/dL [facility] Specimen Blood Performing Organization Address [facility] one Number [facility] [address] [address] * Lipid Profile (03/03/2020 9:06 AM CDT) Only the most recent of 2 results within the time period is included. [facility] Cholesterol 166.0 <=200.0 mg/dL [facility] Triglyceride 293 (H) <150 mg/dL [facility] HDL 31.0 See Reference Range [facility] Narrative. mg/dL LAB[facility] LDL 76 <100 mg/dL [facility] Comment: [facility] Optimal: < 100.0 mg/dL Near Optimal: 120-129 mg/dL Borderline: 130-159 mg/dL High: 160-189 mg/dL Very High: >=190 mg/dL Patient Yes [facility] Fasting? LAB[facility] Specimen Blood Performing Organization Address [facility] one Number [facility] [address] [address] * HIV-1 RNA (03/03/2020 9:06 AM CDT) Only the most recent of 2 results within the time period is included. [facility] HIV-1 RNA Detected (A) Not detected [facility] Detection LAB[facility]ORY HIV-1 RNA <20 (H) <=0 copies/mL [facility] Copies [facility] HIV-1 RNA Log10 <1.30 (H) <=0.00 Log10 [facility] Specimen Blood Narrative Performed At This test utilizes FDA cleared JOSI Am pliPrep/JOSI TaqMan HIV-1 test 2.0 from [facility] [employer] which allo ws quantitation of viral loads [...] patients with HIV-1 infection. Performing Organization Address [facility] Ph one Number [facility] [address] [place] [address] * Hepatitis C Virus Ab IgG (03/03/2020 9:06 AM CDT) Only the most recent of 2 results within the time period is included. [facility] Hepatitis C Negative Negative [facility] Virus ([facility]) [facility] Antibody Specimen Blood Performing Organization Address [facility] one Number [facility] [address] [place] [address] * Basic Metabolic Panel (03/03/2020 9:06 AM CDT) Only the most recent of 2 results within the time period is included. [facility] Sodium 141 136 - 145 mmol/L [facility] Potassium 4.5 3.5 - 5.1 mmol/L [facility] Chloride 109 (H) 98 - 107 mmol/L [facility] CO2 26 21 - 31 mmol/L [facility] Urea Nitrogen 35.0 (H) 7.0 - 25.0 mg/dL [facility] Creatinine 1.8 (H) 0.7 - 1.3 mg/dL [facility] Glucose 92 70 - 110 mg/dL [facility] Calcium 8.9 8.6 - 10.3 mg/dL [facility] GFR, Estimated 43 (L) >=90 mL/min/1.73 m2 [facility] Anion Gap 6 5 - 16 mmol/L [facility] Specimen Blood Performing Organization Address [facility] Ph one Number [facility] [address] [address] * CBC/Diff (09/01/2019 9:45 AM [employer]) WBC 22.8 (H) 4.5 - 12.0 K/uL [...] Blood - Arm, left Performing Organization Address [facility] one Number [facility] [address] [address] * Differential, Manual (09/01/2019 9:45 AM [employer]) Neutrophil 78.0 (H) 34.0 - 67.9 % [...] Blood - Arm, left Performing Organization Address [facility] [address] [address] after 05/13/2019 Insurance Type Payer Benefit Subscriber ID Effective Phone Address Plan / Dates Group [facility] xxxxxxxxx 2011-P [phone] [address] [address] [place] [address]
--- OUTSIDE RECORDS SUMMARY | 2020-05-13 02:14 | XMS REPORT | Continuity of Care Document ---
Author Author [facility] t Organization [facility] Address [address] [place] [address] Phone Unavailable Care Team Providers Care Education Diagnostician Name Role Phone NONSTAFF PCP Unavailable Rita PATINO Attphys Unavailable Carmelo Guzman MD Attphys ALEXUS CABRALES Attphys Unavailable Maria Ines SCHEDULE HANGER, Giancarlo Caldwell Attphys ALEXUS CABRALES Admkiana Unavailable Payers Payer Name Policy Type Policy Number Effective Date Expiration Date [facility] [id number][id number] [place] [id number] xxxxxxxxx 2011 00:00:00 [facility] Gonzalez Medicaid NA 2011 00:00:00 [facility] [place] [employer] [id number] 2006 [facility]:00 [facility] Problems Condition Name Condition Details Condition Category Status Onset Date Resolution Date Last Treatment Date Treating Clinician Comments Source Essential hypertension Essential hypertension Disease Active 2016-05-09 00:00:00 [facility] Human immunodeficiency virus (HIV) infection HIV (craig n immunodeficiency virus infection) Problem Active 2015-12-18 00:00:[address] 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 2014-11-20 00:00:00 [facility] Asymptomatic human immunodeficiency virus (HIV) infect ion status Asymptomatic human immunodeficiency virus (HIV) infection status Disease Active 2006-12-19 00:00:00 [facility] Pneumonia Pneumonia Problem Active [facility] Sprain of right ankle Right ankle sprain Problem Active [facility] Muscle spasm Problem Active [facility] Seizure disorder on meds 2016 Seizure disorder on meds 2016 Disease Active Overview: NO DM, CAD,CANCER [facility] Allergies, Adverse Reactions, Alerts Allergy Name Allergy Type Status Severity Reaction(s) Onset Date Inacti ve Date Treating Clinician Comments Source No Known Allergies DA Active U 2015-12-17 00:00:00 [facility] Family History Family Member Diagnosis Comments Start Date Stop Date Source Natural father Cancer Tal Sanderson [facility] Social History Social Habit Start Date Stop Date Quantity Comments Source Alcohol Comment SOMETIMES Parada Jarrod dobbs Sex Assigned At [facility] Alcohol intake 2020-03-14 00:00:00 2020-03-14 00:00:00 Current drinker of alcohol (finding) [facility] SDOH Food Worry 2018-10-15 00:00:00 2018-10-15 00:00:00 1 [facility] Food Scarcity 2018-10-15 00:00:00 2018-10-15 00:00:00 1 [facility] Smoking Status Start Date Stop Date Source Never smoker [facility] Medications Ordered Medication Name Filled Medication Name Start Date Stop Da te Current Medication? Ordering Clinician Indication Dosage Frequency Signature (SIG) Comments Components Source enalapril (VASOTEC) 10 mg tablet 2020-03-14 00:00:00 Yes Essential hypertension 10mg QD Take 1 tablet by mouth daily. [facility] ergocalciferol (VITAMIN D2) 1,250 mcg (50,000 unit) capsule 2020-03-14 00:00:00 Yes Vitamin D deficiency 24455D Take 1 capsule by mouth ONCE A WEEK. [facility] dolutegravir (TIVICAY) 50 mg tablet 2020-03-14 00:00:00 Yes Asymptomatic human immunodeficiency virus (HIV) infection status 50mg QD Take 1 tablet by mouth daily. [facility] darunavir-cobicistat (PREZCOBIX) 800-150 mg-mg Tab tablet 2020-03-14 00:00:00 Yes Asymptomatic human immunodeficiency virus (HIV) infection status 1{tbl} QD Take 1 tablet by mouth daily. [facility] posaconazole (NOXAFIL) 100 mg delayed release tablet 2 00:00:00 Yes Coccidioidomycosis meningitis 200mg Take 2 tablets by mouth 2 times daily (with meals). [facility] diazePAM (VALIUM) 5 mg tablet 2020-03-02 00:00:00 2020-03-14 00: 00:00 No [facility] enalapril (VASOTEC) 10 mg tablet 2019-12-27 00:00:00 2020-03 00:00:00 No Essential hypertension 10mg QD Take 1 tablet by mouth daily. [facility] ergocalciferol (VITAMIN D2) 1,250 mcg (50,000 unit) capsule 2019-12-27 00:00:00 2020-03-14 00:00:00 No Vitamin D deficiency 05835P Take 1 capsule by mouth weekly. [facility] dolutegravir (TIVICAY) 50 mg tablet 2019-12-27 00:00:0 0 2020-03-14 00:00:00 No Asymptomatic human immunodeficiency virus (HIV) infect ion status 50mg QD Take 1 tablet by mouth daily. [facility] darunavir-cobicistat (PREZCOBIX) 800-150 mg-mg Tab tablet 2019-12-27 00:00:00 2020-03-14 00:00:00 No Asymptomatic human i mmunodeficiency virus (HIV) infection status 1{tbl} QD Take 1 tablet by mouth daily. [facility] posaconazole (NOXAFIL) 100 mg delayed release tablet 2019-12-27 00:00:00 2020-03-14 00:00:00 No Coccidioidomycosis meningitis 200mg Take 2 tablets by mouth 2 times daily (with meals). [facility] enalapril (VASOTEC) 10 mg tablet 2019-09-16 00:00:00 2019-12 00:00:00 No Essential hypertension 10mg QD Take 1 tablet by mouth daily. [facility] ergocalciferol (VITAMIN D2) 1,250 mcg (50,000 unit) capsule 2019-09-16 00:00:00 2019-12-27 00:00:00 No Vitamin D deficiency 67426F Take 1 capsule by mouth weekly. [facility] dolutegravir (TIVICAY) 50 mg tablet 2019-09-16 00:00:0 0 2019-12-27 00:00:00 No Asymptomatic human immunodeficiency virus (HIV) infect ion status 50mg QD Take 1 tablet by mouth daily. [facility] darunavir-cobicistat (PREZCOBIX) 800-150 mg-mg Tab tablet 2019-09-16 00:00:00 2019-12-27 00:00:00 No Asymptomatic human i mmunodeficiency virus (HIV) infection status 1{tbl} QD Take 1 tablet by mouth daily. [facility] posaconazole (NOXAFIL) 100 mg delayed release tablet 2019-09-16 00:00:00 2019-12-27 00:00:00 No Coccidioidomycosis meningitis 200mg Take 2 tablets by mouth 2 times daily (with meals). [facility] cefTRIAXone (ROCEPHIN) 1 g with lidocaine diluent 1% 2.1 mL for injection 2019-08-21 15:15:00 2019-08-21 15:17:00 No Acute br onchitis, unspecified organism 1g [facility] benzonatate (TESSALON PERLES) 100 mg capsule 201 06-16-16 00:00:00 2019-09-16 00:00:00 No Acute bronchitis, unspecified organism Take 1-2 capsules by mouth every 8 hours as needed for cough:Please use [facility] [facility]. [facility] loratadine (CLARITIN) 10 mg tablet 2019-08-21 00:00:00 201 06-17-12 00:00:00 No Acute bronchitis, unspecified organism 10mg QD Take 1 tablet by mouth daily Please use [place]. [facility] azithromycin (ZITHROMAX) 250 mg tablet 2019-08-06 6 00:00:00 2019-08-26 23:59:00 No Acute bronchitis, unspecified organism Take 2 tablets by mouth on the first day, then take one tablet every day for the next 4 days: Please use [place] [employer]. [facility] enalapril (VASOTEC) 10 mg tablet 2019-05-12 00:00:00 2019-09 00:00:00 No Essential hypertension 10mg QD Take 1 tablet by mouth daily. [facility] ketoconazole (NIZORAL) 2 % topical cream 2019-04 00:00:00 2019-09-16 00:00:00 No Rash and other nonspecific skin eruption Q.5D Apply to affected area 2 times daily Please use [place] [employer]. [facility] olopatadine (PAZEO) 0.7 % Drop 2019-04-21 00:00:00 2019-09-05 2 00:00:00 No Allergic conjunctivitis of both eyes 1[drp] QD Ins till 1 Drop by ophthalmic route daily. [facility] cetirizine (ZYRTEC) 10 mg tablet 2019-04-21 00:00:00 2019-08 00:00:00 No Acute atopic conjunctivitis of both eyes 10mg QD Take 1 tablet by mouth daily Please use [place]. [facility] ergocalciferol (VITAMIN D2) 50,000 unit capsule 2019-04-01 00:00:00 2019-09-16 00:00:00 No Vitamin D deficiency 00191G Take 1 capsule by mouth weekly. [facility] dolutegravir (TIVICAY) 50 mg tablet 2019-04-01 00:00:0 0 2019-09-16 00:00:00 No Asymptomatic human immunodeficiency virus (HIV) infect ion status 50mg QD Take 1 tablet by mouth daily. [facility] darunavir-cobicistat (PREZCOBIX) 800-150 mg-mg Tab tablet 2019-04-01 00:00:00 2019-09-16 00:00:00 No Asymptomatic human i mmunodeficiency virus (HIV) infection status 1{tbl} QD Take 1 tablet by mouth daily. [facility] posaconazole (NOXAFIL) 100 mg delayed release tablet 2019-04-01 00:00:00 2019-09-16 00:00:00 No Coccidioidomycosis meningitis 200mg Take 2 tablets by mouth 2 times daily (with meals). [facility] enalapril (VASOTEC) 10 mg tablet 2019-04-01 00:00:00 2019-09 00:00:00 No Essential hypertension YAMILKA 1 TABLETA ORALMENTE LASHONSara. [facility] Tramadol Hcl (Ultram) 50 Mg TABLET Tramadol Hcl (Ultram) 50 Mg TABLET 2016-12-03 15:06:00 2017-02-15 00:00:00 No 50 Every 6 Hours a s needed for Pain [facility] Dolutegravir Sodium (Tivicay) 50 Mg TABLET Dolutegravi r Sodium (Tivicay) 50 Mg TABLET Yes 50 Daily [facility] Enalapril Maleate (Vasotec) 10 Mg TABLET Enalapril Mal eate (Vasotec) 10 Mg TABLET Yes 10 Daily [facility] Ergocalciferol (Vitamin D2) (Vitamin D2) 50 Mcg CAPSUL E Ergocalciferol (Vitamin D2) (Vitamin D2) 50 Mcg CAPSULE Yes 26909 Weekly [facility] Noxafil Noxafil Yes 200 Twice Daily With Meals [facility] Prezcobix 800-150MG Prezcobix 800-150MG Yes 1 Daily [facility] Duranavir-Cobicistat Duranavir-Cobicistat 2019-08-25 00:00:00 No [facility] Levetiracetam (Keppra) 1,000 Mg TABLET Levetiracetam (Keppra) 1, 000 Mg TABLET 2019-08-25 00:00:00 No 1000 Twice A Day [facility] Tibica Tibica 2019-08-25 00:00:00 No [facility] Dolutegravir Dolutegravir 2017-02-15 00:00:00 No 50 Daily [facility] Enalapril Maleate (Vasotec) 5 Mg TAB Enalapril Maleate (Vasotec) 5 Mg TAB 2016-09-20 00:00:00 No 5 Daily [facility] Clarithromycin (Biaxin) 500 Mg TABLET Clarithromycin (Biaxin) 50 0 Mg TABLET 2016-09-19 00:00:00 No 500 Twice A Day [facility] Dicyclomine Hcl (Bentyl) 20 Mg TABLET Dicyclomine Hcl (Bentyl) 2 0 Mg TABLET 2016-09-19 00:00:00 No 20 Every 6 Hours as nee ded for Abdominal Pain [facility] Ethambutol Hcl (Myambutol) 400 Mg TABLET Ethambutol Hc l (Myambutol) 400 Mg TABLET 2016-09-19 00:00:00 No 1200 Daily [facility] Ondansetron (Zofran Odt) 4 Mg TAB.RAPDIS Ondansetron ( Zofran Odt) 4 Mg TAB.RAPDIS 2016-09-19 00:00:00 No 4 E very 6 Hours as needed for Nausea And Vomiting [facility] Tramadol Hcl (Ultram) 50 Mg TABLET Tramadol Hcl (Ultram) 50 Mg T ABLET 2016-09-19 00:00:00 No 50 Every 6 Hours as nee ded for Abdominal Pain [facility] Triumeg Triumeg 2016-09-19 00:00:00 No 50 Daily [facility] Immunizations Ordered Immunization Name Filled Immunization Name Date Status Comments Source HPV 9-valent 2019-09-16 00:00:00 Completed [facility] Influenza Vaccine, Seasonal, Injectable 2017-09-25 00:00:0 0 Completed [facility] PPV 23 Pneumococcal Polysaccaride 2016-07-05 00:00:00 Comp leted [facility] Twinrix-HEP A&b 2016-07-05 00:00:00 [facility] Pneumococcal 13-valent conj 0.5 mL injection 2016-05-09 00 :00:00 [facility] Tdap Tetanus, diphtheria, acellular pertussis Vaccine 2016-05-09 00:00:00 Completed [facility] Twinrix-HEP A&b 2016-05-09 00:00:00 Completed [facility] Influenza Vaccine 2015-08-17 00:00:00 Completed [facility] Influenza Vaccine 2014-08-16 00:00:00 Completed [facility] Influenza Vaccine 2012-08-18 00:00:00 Completed [facility] PPD 2012-08-18 00:00:00 Completed [facility] Influenza Vaccine 2011-09-17 00:00:00 Completed [facility] PPD 2011 00:00:00 Completed [facility] Influenza Vaccine 2010-09-20 00:00:00 Completed [facility] Influenza A (H1N1) Vac Injection 2009-09-05 00:00:00 Compl eted [facility] Influenza Vaccine 2008-08-16 00:00:00 Completed [facility] PPD 2008-08-16 00:00:00 Completed [facility] Td Tetanus, diphtheria Toxoids Vaccine 2007-12-03 00:00:00 Completed [facility] Hepatitis B Vaccine 2007-12-03 00:00:00 Completed [facility] Influenza Vaccine 2007-07-17 00:00:00 Completed [facility] PPD 2006-12-22 00:00:00 Completed [facility] Influenza Vaccine 2006-08-01 00:00:00 Completed [facility] PPD 2002-12-29 00:00:00 Completed [facility] Vital Signs Vital Name Observation Time Observation Value Comments Source Weight 2020-03-02 10:38:00 167 [lb_av] [facility] BMI (Body Mass Index) 2020-03-02 10:38:00 27.0 kg/m2 [facility] Systolic blood pressure 2019-09-16 10:49:00 125 mm[Hg] [facility] Diastolic blood pressure 2019-09-16 10:49:00 79 mm[Hg] [facility] Heart rate 2019-09-16 10:49:00 83 /min [facility] Body temperature 2019-09-16 10:49:00 36.83 Desirae [facility] Respiratory rate 2019-09-16 10:49:00 18 /min [facility] Body height 2019-09-16 10:49:[address] [facility] Body weight 2019-09-16 10:49:[address] [facility] BMI 2019-09-16 10:49:00 26.21 kg/m2 [facility] Body Temperature 2019-08-30 14:08:00 97.3 [degF] [facility] Oxygen saturation in Arterial blood by Pulse oximetry 2018-10 13:31:00 100 /min [facility] Procedures Procedure Date / Time Performed Performing Clinician Sourc e URINALYSIS 2020-03-03 09:07:00 Parth Guzman He alth CHLAM/GC DNA AMPLI 2020-03-03 09:07:00 Parth Guzman [facility] URINALYSIS 2020-03-03 09:07:[address] [facility] alth LIVER PROFILE 2020-03-03 09:06:[address] [facility] alth LIPID PROFILE 2020-03-03 09:06:[address] [facility] alth HIV RNA VIRAL LOAD 2020-03-03 09:06:00 Parth Guzman [facility] CD4/CD8 RATIO GRP 2020-03-03 09:06:00 Parth Guzman [facility] SYPHILIS MONITOR FOR TREATMENT 2020-03-03 09:06:00 Robert Guzman [facility] BASIC METABOLIC PANEL 2020-03-03 09:06:00 Parth Guzman [facility] CYTOMEGALOVIRUS (CMV) AB, IGG 2020-03-03 09:06:00 Heriberto Guzman [facility] QUANTIFERON TB GOLD 2020-03-03 09:06[facility]ORMONE (TSH) 2020-03-03 09:06:00 Herbert Guzman [facility] VIT D, 25-HYDROXY 2020-03-03 09:06:00 Parth Guzman [facility] HEMOGLOBIN A1C 2020-03-03 09:06:[address] [facility] alth HEPATITIS C VIRUS AB 2020-03-03 09:06:00 Parth Guzman [facility] QUANTIFERON TB GOLD PLUS (BKR) 2020-03-03 09:06:00 Robert Guzman [facility] CBC/DIFF 2019-09-01 09:45:00 Parth Guzman alth LIVER PROFILE 2019-09-01 09:45:[address] [facility] alth LIPID PROFILE 2019-09-01 09:45:[address] [facility] alth HIV RNA VIRAL LOAD 2019-09-01 09:45:00 Parth Guzman [facility] CD4/CD8 RATIO GRP 2019-09-01 09:45:00 Parth Guzman [facility] SYPHILIS MONITOR FOR TREATMENT 2019-09-01 09:45:00 Robert Guzman [facility] BASIC METABOLIC PANEL 2019-09-01 09:45:00 Parth Guzman [facility] QUANTIFERON TB GOLD 2019-09-01 09:45:00 Parth Guzman [facility] THYROID STIMULATING HORMONE (TSH) 2019-09-01 09:45:00 Herbert Guzman [facility] VIT D, 25-HYDROXY 2019-09-01 09:45:00 Parth Guzman [facility] HEMOGLOBIN A1C 2019-09-01 09:45:00 Parth Guzman alth HEPATITIS C VIRUS AB 2019-09-01 09:45:00 Parth Guzman [facility] CBC 2019-09-01 09:45:00 Parth Guzman alth DIFFERENTIAL, MANUAL-WAM 2019-09-01 09:45:00 Parth Guzman [facility] QUANTIFERON TB GOLD PLUS (BKR) 2019-09-01 09:45:00 Robert Guzman [facility] CHLAM/GC DNA AMPLI 2019-09-01 09:42:00 Parth Guzman [facility] URINALYSIS 2019-09-01 09:42:00 Parth Guzman [facility] URINALYSIS 2019-09-01 09:42:00 Parth Guzman [facility] alth X-ray of chest, two views 2019-08-26 00:00:00 [facility] X-ray of chest, two views 2019-08-25 00:00:00 [facility] Plan of Care Planned Activity Planned Date Details Comments Source Future Scheduled Test 2020-07-06 00:00:00 IMM Influenza Seas onal Jul to December (>/= 19 yrs) [code = IMM Influenza Seasonal Jul to December (>/= 19 yrs)] [facility] Instructions [facility] Encounters Start Date/Time End Date/Time Encounter Type Admission Type [facility] Care Department Encounter ID Source 2020-03-02 10:35:00 2020-03-02 11:51:00 Departed Emergency Room [facility] [id number] [facility] 2019-08-25 10:21:00 2019-08-30 14:43:00 Discharged Inpatient 1 [facility] [id number] 2018-10-15 00:00:00 2018-10-15 00:00:00 Outpatient [facility] [id number] [facility] 2018-09-22 00:00:00 2018-09-22 00:00:00 Outpatient [facility] [id number] [facility] 2018-09-08 00:00:00 2018-09-08 00:00:00 Outpatient [facility] [id number] [facility] 2018-09-03 15:26:43 2018-09-03 15:26:43 Outpatient [facility] [id number] [facility] 2018-07-14 00:00:00 2018-07-14 00:00:00 Outpatient [facility] [id number] [facility] 2018-06-01 00:00:00 2018-06-01 00:00:00 Outpatient [facility] [id number] [facility] 2018-05-19 16:40:10 2018-05-19 16:40:10 Outpatient [facility] [id number] [facility] 2018-05-19 00:00:00 2018-05-19 00:00:00 Outpatient [facility] [id number] [facility] 2018-04-07 10:28:59 2018-04-07 10:28:59 Outpatient [facility] [id number] [facility] 2018-04-02 12:40:58 2018-04-02 12:40:58 Outpatient [facility] [id number] [facility] 2018-03-24 08:06:27 2018-03-24 08:06:27 Outpatient [facility] [id number] [facility] 2018-03-13 00:00:00 2018-03-13 00:00:00 Outpatient [facility] [id number] [facility] 2018-02-27 00:00:00 2018-02-27 00:00:00 Outpatient [facility] [id number] [facility] 2018-02-04 14:13:35 2018-02-04 14:13:35 Outpatient [facility] [id number] [facility] 2017-12-03 08:42:35 2017-12-03 08:42:35 Outpatient [facility] [id number] [facility] 2017-09-25 10:27:58 2017-09-25 10:27:58 Outpatient [facility] [id number] [facility] 2017-09-11 10:42:28 2017-09-11 10:42:28 Outpatient [facility] [id number] [facility] Results Test Description Test Time Test Comments Results Result Comments Source SHOULDER RIGHT COMPLETE 2020-05-13 00:27:00 [place] [address] Patient Name: ASHLEE BARNETT MR #: [id number] : 1980 Age/Sex: 40/M Req #: [id number] Adm Physician: Ordered by: JACEY PATINO MD Report #: [id number] Location: ER Room/Bed: Procedure: [id number] DX/SHOULDER RIGHT COMPLETE Exam Date: Exam Time: REPORT STATUS: Signed X-ray 2 views of the right shoulder HISTORY: Pain. COMPARISON: None available. FINDINGS: Bones: No acute displaced fracture. Osseous alignment is within normal limits. Joints: The joint spaces are well-maintained. Soft tissues: The soft tissues appear unremarkable. IMPRESSION: No acute radiographic abnormality of the right shoulder. Signed by: Olga Lidia Thayer MD on 05/13/2020 12:47 AM Dictated By: OLGA LIDIA THAYER MD Transcribed By: JOSE on 05/13/2046 COPY TO: JACEY PATINO MD TB Test (T-Spot) 2019-08-30 11:21:00 Test Item [...] Passed Positive Control Passed Testing performed by: [employer] [address] [place] [address] Dir: Jose Manuel Rincon MD [facility] [id number] 11:08:00* Test Item Value Reference Range Interpretation Comments Blood Culture (test code = 27462860) NO GROWTH AFTER 5 DAYS, [id number] 07:50:00* Test Item Value Reference Range Interpretation Comments Sodium Level (test code = 2951-2) 141 136-145 [facility] [id number] 07:50:00* Test Item Value Reference Range Interpretation Comments Potassium Level (test code = 2823-3) 4.3 3.5-5.1 [facility]loride [id number] 07:50:00* Test Item Value Reference Range Interpretation Comments Chloride Level (test code = 2075-0) 108 98-107 H [facility] HospitalCarbon Dioxide [id number] 07:50:00* Test Item Value Reference Range Interpretation Comments Carbon Dioxide Level (test code = 2028-9) 25 22-29 [facility] HospitalAnion [id number] 07:50:00* Test Item Value Reference Range Interpretation Comments Anion Gap (test code = 64829-5) 12.3 8-16 [facility] Urea [id number] 07:50:00* Test Item Value Reference Range Interpretation Comments Blood Urea Nitrogen (test code = 3094-0) 20 04-30 [facility] HospitalCreatinine2019-11-24 07:50:00* Test Item Value Reference Range Interpretation Comments Creatinine (test code = 2160-0) 1.15 0.72-1.25 [facility] HospitalBUN/Creatinine [id number] 07:50:00* Test Item Value Reference Range Interpretation Comments BUN/Creatinine Ratio (test code = 3097-3) 17 03-30 [facility] HospitalEstimat Glomerular Filtration Rate 2019-08-29 07:50:00* Test Item Value Reference Range Interpretation Comments Estimat Glomerular Filtration Rate (test code = 495146377) > 60 >60 Ranges were taken from the National Kidney Disease Education Program and the [facility] Foundation literature.Reference ranges:60 or greater: Mfbghe17-22 ( for 3 consecutive months): Chronic kidney disease 15 or less: Kidney failureMedical Center HospitalGlucose [id number] 07:50:00* Test Item Value Reference Range Interpretation Comments Glucose Level (test code = YCT3497) 113 74-118 [facility] HospitalCalcium [id number] 07:50:00* Test Item Value Reference Range Interpretation Comments Calcium Level (test code = 20415-9) 9.0 8.4-10.2 [facility] HospitalTotal [id number] 07:50:00* Test Item Value Reference Range Interpretation Comments Total Bilirubin (test code = 1975-2) 0.2 0.2-1.2 [facility] HospitalAspartate Amino Transf (AST/SGOT) 2019-08-29 07:50:00* Test Item Value Reference Range Interpretation Comments Aspartate Amino Transf (AST/SGOT) (test code = Aspartate Amino Transf (AST/SGOT)) 16 34 [facility] HospitalAlanine Aminotransferase (ALT/SGPT) 2019-08-29 07:50:00* Test Item Value Reference Range Interpretation Comments Alanine Aminotransferase (ALT/SGPT) (test code = 1742-6) 20 0-55 [facility] HospitalTotal [id number] 07:50:00* Test Item Value Reference Range Interpretation Comments Total Protein (test code = 2885-2) 6.0 6.5-8.1 L [facility] HospitalAlbumin2019-11-24 07:50:00* Test Item Value Reference Range Interpretation Comments Albumin (test code = 1751-7) 2.3 3.5-5.0 L [facility] HospitalGlobulin2019-11-24 07:50:00* Test Item Value Reference Range Interpretation Comments Globulin (test code = 18199-7) 3.7 2.3-3.5 H [facility] HospitalAlbumin/Globulin [id number] 07:50:00 * Test Item Value Reference Range Interpretation Comments Albumin/Globulin Ratio (test code = 1759-0) 0.6 0.8-2.0 [facility] HospitalAlkaline Yqcapmnbexx3267-07-49 07:50:00* Test Item Value Reference Range Interpretation Comments Alkaline Phosphatase (test code = 6768-6) 125 40-150 [facility] HospitalWhite Blood Aeqzy5218-75-43 07:12:00* Test Item Value Reference Range Interpretation Comments White Blood Count (test code = 6690-2) 15.22 4.8-10.8 [facility] HospitalRed Blood Bqvvv3310-56-66 07:12:00* Test Item Value Reference Range Interpretation Comments Red Blood Count (test code = 789-8) 4.37 4.3-5.7 [facility] HospitalHemoglobin2019-11-24 07:12:00* Test Item Value Reference Range Interpretation Comments Hemoglobin (test code = 41968-6) 11.3 14.0-18.0 [facility] HospitalHematocrit2019-11-24 07:12:00* Test Item Value Reference Range Interpretation Comments Hematocrit (test code = 4544-3) 34.9 38.2-49.6 [facility] HospitalMean Corpuscular Yprbmw3874-84-15 07:12:00* Test Item Value Reference Range Interpretation Comments Mean Corpuscular Volume (test code = 787-2) 79.9 81-99 [facility] HospitalMean Corpuscular Tdmyyxkngm4009-20-13 07:12:00* Test Item Value Reference Range Interpretation Comments Mean Corpuscular Hemoglobin (test code = 785-6) 25.9 28-32 [facility] HospitalMean Corpuscular Hemoglobin Concent 2019-08-29 07:12:00* Test Item Value Reference Range Interpretation Comments Mean Corpuscular Hemoglobin Concent (test code = 786-4) 32.4 31-35 [facility] HospitalRed Cell Distribution Aitnu8759-46-73 07:12:00* Test Item Value Reference Range Interpretation Comments Red Cell Distribution Width (test code = 57419-9) 15.8 11.7 -14.4 H [facility] HospitalPlatelet Dtzmi7609-49-20 07:12:00* Test Item Value Reference Range Interpretation Comments Platelet Count (test code = 777-3) 295 140-360 [facility] HospitalNeutrophils (%) (Auto)2019-08-29 07:12:00 * Test Item Value Reference Range Interpretation Comments Neutrophils (%) (Auto) (test code = 58050-9) 81.9 38.7-80.0 [facility] HospitalLymphocytes (%) (Auto)2019-08-29 07:12:00 * Test Item Value Reference Range Interpretation Comments Lymphocytes (%) (Auto) (test code = 736-9) 7.4 18.0-39.1 L [facility] HospitalMonocytes (%) (Auto)2019-08-29 07:12:00* Test Item Value Reference Range Interpretation Comments Monocytes (%) (Auto) (test code = 5905-5) 5.1 4.4-11.3 [facility] HospitalEosinophils (%) (Auto)2019-08-29 07:12:00 * Test Item Value Reference Range Interpretation Comments Eosinophils (%) (Auto) (test code = 713-8) 0.0 0.0-6.0 [facility] HospitalBasophils (%) (Auto)2019-08-29 07:12:00* Test Item Value Reference Range Interpretation Comments Basophils (%) (Auto) (test code = 706-2) 0.3 0.0-1.0 [facility] HospitalIM GRANULOCYTES %2019-08-29 07:12:00* Test Item Value Reference Range Interpretation Comments IM GRANULOCYTES % (test code = IM GRANULOCYTES %) 5.3 0.0- 1.0 [facility] HospitalNeutrophils # (Auto)2019-08-29 07:12:00* Test Item Value Reference Range Interpretation Comments Neutrophils # (Auto) (test code = 751-8) 12.5 2.1-6.9 H [facility] HospitalLymphocytes # (Auto)2019-08-29 07:12:00* Test Item Value Reference Range Interpretation Comments Lymphocytes # (Auto) (test code = 61238-6) 1.1 1.0-3.2 [facility] HospitalMonocytes # (Auto)2019-08-29 07:12:00* Test Item Value Reference Range Interpretation Comments Monocytes # (Auto) (test code = 742-7) 0.8 0.2-0.8 [facility] HospitalEosinophils # (Auto)2019-08-29 07:12:00* Test Item Value Reference Range Interpretation Comments Eosinophils # (Auto) (test code = 711-2) 0.0 0.0-0.4 [facility] HospitalBasophils # (Auto)2019-08-29 07:12:00* Test Item Value Reference Range Interpretation Comments Basophils # (Auto) (test code = 704-7) 0.0 0.0-0.1 [facility] HospitalAbsolute Immature Granulocyte (auto 2019-08-29 07:12:00* Test Item Value Reference Range Interpretation Comments Absolute Immature Granulocyte (auto (minerva t code = Absolute Immature Granulocyte (auto) 0.81 0-0.1 H [facility] HospitalBlood leukocytes automated count (number/volume)2019-08-29 05:51:00* Test Item Value Reference Range Interpretation Comments White Blood Count (test code = 6690-2) 15.22 4.8-10.8 [facility] HospitalBlood erythrocytes automated count (number/volume)2019-08-29 05:51:00* Test Item Value Reference Range Interpretation Comments Red Blood Count (test code = 789-8) 4.37 4.3-5.7 [facility] HospitalBlood hemoglobin measurement (moles/volume)2019-08-29 05:51:00* Test Item Value Reference Range Interpretation Comments Hemoglobin (test code = 54396-7) 11.3 14.0-18.0 [facility] HospitalAutomated blood hematocrit (volume fraction)2019-08-29 05:51:00* Test Item Value Reference Range Interpretation Comments Hematocrit (test code = 4544-3) 34.9 38.2-49.6 [facility] HospitalAutomated erythrocyte mean corpuscular lqynzk7833-49-69 05:51:00* Test Item Value Reference Range Interpretation Comments Mean Corpuscular Volume (test code = 787-2) 79.9 81-99 [facility] HospitalAutomated erythrocyte mean corpuscular hemoglobin (mass per erythrocyte)2019-08-29 05:51:00* Test Item Value Reference Range Interpretation Comments Mean Corpuscular Hemoglobin (test code = 785-6) 25.9 28-32 [facility] HospitalAutomated erythrocyte mean corpuscular hemoglobin concentration measurement (mass/volume)2019-08-29 05:51:00* Test Item Value Reference Range Interpretation Comments Mean Corpuscular Hemoglobin Concent (test code = 786-4) 32.4 31-35 [facility] HospitalRDW QdoCh-Fow6780-17-24 05:51:00* Test Item Value Reference Range Interpretation Comments Red Cell Distribution Width (test code = 88046-2) 15.8 11.7 -14.4 [facility] HospitalAutomated blood platelet count (count/volume)2019-08-29 05:51:00* Test Item Value Reference Range Interpretation Comments Platelet Count (test code = 777-3) 295 140-360 [facility] HospitalAutomated blood segmented neutrophil count as percentage of total etgvphcwsf2218-54-98 05:51:00* Test Item Value Reference Range Interpretation Comments Neutrophils (%) (Auto) (test code = 06227-2) 81.9 38.7-80.0 [facility] HospitalAutomated blood lymphocyte count as percentage ot total qyvvslmzva3142-10-01 05:51:00* Test Item Value Reference Range Interpretation Comments Lymphocytes (%) (Auto) (test code = 736-9) 7.4 18.0-39.1 [facility] HospitalAutomated blood monocyte count as percentage of total ivweunaxfd6946-65-05 05:51:00* Test Item Value Reference Range Interpretation Comments Monocytes (%) (Auto) (test code = 5905-5) 5.1 4.4-11.3 [facility] HospitalAutomated blood eosinophil count as percentage of total expzkvjkoi1532-30-87 05:51:00* Test Item Value Reference Range Interpretation Comments Eosinophils (%) (Auto) (test code = 713-8) 0.0 0.0-6.0 [facility] HospitalAutomated blood basophil count as percentage of total ralqqwmgzc9782-09-55 05:51:00* Test Item Value Reference Range Interpretation Comments Basophils (%) (Auto) (test code = 706-2) 0.3 0.0-1.0 [facility] HospitalFluoroscopic procedure less than one hour lfssvmsq7818-04-58 05:51:00* Test Item Value Reference Range Interpretation Comments IM GRANULOCYTES % (test code = IM GRANULOCYTES %) 5.3 0.0- 1.0 [facility] HospitalAutomated blood neutrophil count 2019-08-29 05:51:00* Test Item Value Reference Range Interpretation Comments Neutrophils # (Auto) (test code = 751-8) 12.5 2.1-6.9 [facility] HospitalBlood lymphocytes count (number/volume) 2019-08-29 05:51:00* Test Item Value Reference Range Interpretation Comments Lymphocytes # (Auto) (test code = 74552-1) 1.1 1.0-3.2 [facility] HospitalBlood monocytes automated count (number/volume)2019-08-29 05:51:00* Test Item Value Reference Range Interpretation Comments Monocytes # (Auto) (test code = 742-7) 0.8 0.2-0.8 [facility] HospitalAutomated blood eosinophil count 2019-08-29 05:51:00* Test Item Value Reference Range Interpretation Comments Eosinophils # (Auto) (test code = 711-2) 0.0 0.0-0.4 [facility] HospitalAutomated blood basophil count (count/volume)2019-08-29 05:51:00* Test Item Value Reference Range Interpretation Comments Basophils # (Auto) (test code = 704-7) 0.0 0.0-0.1 [facility] HospitalFluoroscopic procedure less than one hour pgncowwg4307-35-30 05:51:00* Test Item Value Reference Range Interpretation Comments Absolute Immature Granulocyte (auto (minerva t code = Absolute Immature Granulocyte (auto) 0.81 0-0.1 [facility]um or plasma sodium measurement (moles/volume)2019-08-29 05:51:00* Test Item Value Reference Range Interpretation Comments Sodium Level (test code = 2951-2) 141 136-145 [facility] Hospitalerum or plasma potassium measurement (moles/volume)2019-08-29 05:51:00* Test Item Value Reference Range Interpretation Comments Potassium Level (test code = 2823-3) 4.3 3.5-5.1 [facility] Hospitalerum or plasma chloride measurement (moles/volume)2019-08-29 05:51:00* Test Item Value Reference Range Interpretation Comments Chloride Level (test code = 2075-0) 108 98-107 [facility] Hospitalerum or plasma carbon dioxide, total measurement (moles/volume)2019-08-29 05:51:00* Test Item Value Reference Range Interpretation Comments Carbon Dioxide Level (test code = 2028-9) 25 22-29 [facility] Hospitalerum or plasma anion fnc1719-80-37 05:51:00* Test Item Value Reference Range Interpretation Comments Anion Gap (test code = 75836-7) 12.3 8-16 [facility] Hospitalerum or plasma urea nitrogen measurement (mass/volume)2019-08-29 05:51:00* Test Item Value Reference Range Interpretation Comments Blood Urea Nitrogen (test code = 3094-0) 20 7-26 [facility] Hospitalerum or plasma creatinine measurement (mass/volume)2019-08-29 05:51:00* Test Item Value Reference Range Interpretation Comments Creatinine (test code = 2160-0) 1.15 0.72-1.25 [facility] Hospitalerum or plasma urea nitrogen/creatinine mass fmzqf9449-93-68 05:51:00* Test Item Value Reference Range Interpretation Comments BUN/Creatinine Ratio (test code = 3097-3) 17 6-25 [facility] HospitalEstimated glomerular filtration rate (GFR) akjcahxhpwxfe8395-49-25 05:51:00* Test Item Value Reference Range Interpretation Comments Estimat Glomerular Filtration Rate (test code = 161639999) > 60 >60 Ranges were taken from the National Kidney Disease Education Program and the [facility] literature.Reference ranges:60 or greater: Laxybd55-50 ( for 3 consecutive months): Chronic kidney disease 15 or less: Kidney failureMedical Center HospitalGlucose ekbhhenjbhw1466-80-15 05:51:00* Test Item Value Reference Range Interpretation Comments Glucose Level (test code = JZU4593) 113 74-118 [facility] Hospitalerum or plasma calcium measurement (mass/volume)2019-08-29 05:51:00* Test Item Value Reference Range Interpretation Comments Calcium Level (test code = 78031-9) 9.0 8.4-10.2 [facility] Hospitalerum or plasma total bilirubin measurement (mass/volume)2019-08-29 05:51:00* Test Item Value Reference Range Interpretation Comments Total Bilirubin (test code = 1975-2) 0.2 0.2-1.2 [facility] HospitalFluoroscopic procedure less than one hour lrtzqsgw7613-53-23 05:51:00* Test Item Value Reference Range Interpretation Comments Aspartate Amino Transf (AST/SGOT) (test code = Aspartate Amino Transf (AST/SGOT)) 16 5-34 [facility] Hospitalerum or plasma alanine aminotransferase measurement (enzymatic activity/volume)2019-08-29 05:51:00* Test Item Value Reference Range Interpretation Comments Alanine Aminotransferase (ALT/SGPT) (test code = 1742-6) 20 0-55 [facility] Hospitalerum or plasma protein measurement (mass/volume)2019-08-29 05:51:00* Test Item Value Reference Range Interpretation Comments Total Protein (test code = 2885-2) 6.0 6.5-8.1 [facility] Hospitalerum or plasma albumin measurement (mass/volume)2019-08-29 05:51:00* Test Item Value Reference Range Interpretation Comments Albumin (test code = 1751-7) 2.3 3.5-5.0 [facility] HospitalPlasma globulin measurement (mass/volume) 2019-08-29 05:51:00* Test Item Value Reference Range Interpretation Comments Globulin (test code = 75988-0) 3.7 2.3-3.5 [facility] Hospitalerum or plasma albumin/globulin mass bjwgz8898-76-24 05:51:00* Test Item Value Reference Range Interpretation Comments Albumin/Globulin Ratio (test code = 1759-0) 0.6 0.8-2.0 [facility] Hospitalerum or plasma alkaline phosphatase measurement (enzymatic activity/volume)2019-08-29 05:51:00* Test Item Value Reference Range Interpretation Comments Alkaline Phosphatase (test code = 6768-6) 125 40-150 [facility] HospitalCHEST SINGLE (PORTABLE)2019-08-28 15:46:00 [facility] [address] [place] [address] Patient Name: ASHLEE BARNETT MR #: [id number] : 1980 Age/Sex: 39/M Req #: [id number] Adm Physician: ALEXUS CABRALES MD Ordered by: OMLINA LOPEZ MD Report #: [id number] Location: MED/SURG3 Room/Bed: [facility] Procedure: [id number] DX /CHEST SINGLE (PORTABLE) Exam Date: 08/28/19 [...] on 08/28/191546 COPY TO: MOLINA LOPEZ MD Blood CD3+CD4+ (T4 helper) cells/100 ciwhp4526-67-30 05:30:00* Test Item Value Reference Range Interpretation Comments Percent CD3/CD4 Cells (test code = 8123-2) 21.6 30.8-58.5 [facility] HospitalBlood CD3+CD4+ (T4 helper) cells count (number/volume)2019-08-27 05:30:00* Test Item Value Reference Range Interpretation Comments Absolute CD4 Count (test code = 57568-6) 521 135-1655 [facility] HospitalAutomated erythrocyte mean corpuscular hemoglobin concentration measurement (mass/volume)2019-08-27 05:30:00* Test Item Value Reference Range Interpretation Comments Mean Corpuscular Hemoglobin Concent (test code = 786-4) 31.3 31.5-35.7 [facility] HospitalBlood leukocytes automated count (number/volume)2019-08-27 05:30:00* Test Item Value Reference Range Interpretation Comments White Blood Count (test code = 6690-2) 20.6 3.4-10.8 [facility] HospitalBlst[facility] erythrocytes automated count (number/volume)2019-08-27 05:30:00* Test Item Value Reference Range Interpretation Comments Red Blood Count (test code = 789-8) 4.05 4.14-5.80 [facility] HospitalBlood hemoglobin measurement (mass/volume)2019-08-27 05:30:00* Test Item Value Reference Range Interpretation Comments Hemoglobin (test code = 718-7) 10.2 13.0-17.7 [facility] HospitalAutomated blood hematocrit (volume fraction)2019-08-27 05:30:00* Test Item Value Reference Range Interpretation Comments Hematocrit (test code = 4544-3) 32.6 37.5-51.0 [facility] HospitalAutomated erythrocyte mean corpuscular jggfzc9864-02-08 05:30:00* Test Item Value Reference Range Interpretation Comments Mean Corpuscular Volume (test code = 787-2) 81 79-97 [facility] HospitalAutomated erythrocyte mean corpuscular hemoglobin (mass per erythrocyte)2019-08-27 05:30:00* Test Item Value Reference Range Interpretation Comments Mean Corpuscular Hemoglobin (test code = 785-6) 25.2 26.6-3 3.0 [facility] HospitalAutomated erythrocyte distribution width lhyds1196-74-56 05:30:00* Test Item Value Reference Range Interpretation Comments RDW Coefficient of Variation (test code = 788-0) 15.8 12.3- 15.4 [facility] HospitalAutomated blood platelet count (count/volume)2019-08-27 05:30:00* Test Item Value Reference Range Interpretation Comments Platelet Count (test code = 777-3) 304 150-450 [facility] HospitalAutomated blood neutrophil count as percentage of total usomjfbuvh9393-53-47 05:30:00* Test Item Value Reference Range Interpretation Comments Neutrophils % (test code = 770-8) 93 Not Estab. [facility] HospitalAutomated blood lymphocyte count as percentage ot total dlmhitfnpf8395-63-98 05:30:00* Test Item Value Reference Range Interpretation Comments Lymphocytes % (test code = 736-9) 4 Not Estab. [facility] HospitalAutomated blood monocyte count as percentage of total vmfcwljotd0308-05-78 05:30:00* Test Item Value Reference Range Interpretation Comments Monocytes % (test code = 5905-5) 2 Not Estab. [facility] HospitalAutomated blood eosinophil count as percentage of total axndfndouy4513-68-64 05:30:00* Test Item Value Reference Range Interpretation Comments Eosinophils % (test code = 713-8) 0 Not Estab. [facility] HospitalAutgranville medical centered blood basophil count as percentage of total pxchsqispz9620-16-51 05:30:00* Test Item Value Reference Range Interpretation Comments Basophils % (test code = 706-2) 0 Not Estab. [facility] neutrophils automated count (number/volume)2019-08-27 05:30:00* Test Item Value Reference Range Interpretation Comments Absolute Segmented Neutrophils (test code = 751-8) 19.2 1.4 -7.0 [facility] lymphocytes automated count (number/volume)2019-08-27 05:30:00* Test Item Value Reference Range Interpretation Comments Absolute Lymphocytes (auto) (test code = 731-0) 0.8 0.7-3. 1 [facility] HospitalBlood monocytes automated count (number/volume)2019-08-27 05:30:00* Test Item Value Reference Range Interpretation Comments Absolute Monocytes (auto) (test code = 742-7) 0.5 0.1-0.9 [facility] HospitalAutomated blood eosinophil count 2019-08-27 05:30:00* Test Item Value Reference Range Interpretation Comments Absolute Eosinophils (auto) (test code = 711-2) 0.0 0.0-0. [address] [facility] Center[facility] blood basophil count (count/volume)2019-08-27 05:30:00* Test Item Value Reference Range Interpretation Comments Absolute Basophils (auto) (test code = 704-7) 0.0 0.0-0.2 [facility] HospitalBlood immature granulocytes/100 bguuwtvbxq6653-63-25 05:30:00* Test Item Value Reference Range Interpretation Comments Immature Granulocytes % (test code = 47340-2) 1 Not Esta b. [facility] HospitalBlood immature granulocytes count (number/volume)2019-08-27 05:30:00* Test Item Value Reference Range Interpretation Comments Immature Granulocytes # (test code = 32504-3) 0.1 0.0-0.1 Performed at: [facility] [address] [id number] Director: Ruddy Tomas MD, Phone: [phone] 2 OLIAR0318-83-60 08:53:00 [place] [address] Patient Name: ASHLEE BARNETT MR #: [id number] : 1980 Age/Sex: 39/M Req #: [id number] Adm Physician: ALEXUS CABRALES MD Ordered by: FLORIAN JUNIOR MD Report #: [id number] Location: [place] [address] Room/Bed: [facility] Procedure: 1121-000 2 DX/CHEST 2 VIEWS Exam Date: 08/26/19 Exam Time: 06 15 REPORT STATUS: Signed EXAMINA TION: CHEST [...] COPY TO: FLORIAN JUNIOR MD Lactic Acid Nwvtt7874-79-10 14:42:00* Test Item Value Reference Range Interpretation Comments Lactic Acid Level (test code = Lactic Acid Level) 1.6 0.5- 2.0 [facility] HospitalFluoroscopic procedure less than one hour ghqojrde7210-72-47 12:55:00* Test Item Value Reference Range Interpretation Comments Lactic Acid Level (test code = Lactic Acid Level) 1.6 0.5- 2.0 [facility] HospitalFluoroscopic procedure less than one hour btahvvct3393-13-46 12:55:00* Test Item Value Reference Range Interpretation Comments TB Test (T-Spot) (test code = TB Test (T-Spot)) See Comment T-SPOT: NEGATIVEA negative test result does not exclude the possibility of expos ure to or infection with Mycobacterium tuberculosis (M. tuberculosis). Patients with recent exposure to TB infected individuals exhibiting a negative T-Spot.TB result should be considered for retesting within 6 weeks or if other relevent cl inical symptoms indicate. Results from T-Spot.TB testing must be used in conjunc tion with each individual's epiemiological history, current medical status, and results of other diagnostic evaluations. The T-Spot.TB test is qualitative and r esults are reported as positive, borderline or negative, given that the test con trols perform are expected. In line with the Centers for Disease Control Control and Prevention's 2010 recommendation to report quantitative measurements alongs rashard the qualitative result, the laboratory provides spot counts for the informa tional purposes only. The T-Spot.TB test should not be interpreted as a quantita tive test.Panel A Spot Count (Corrected for Negative Control) 1 Panel B S pot Count(Corrected for Negative Control) 4Negative Control PassedPositive Control PassedTe sting performed by:[employer] [place], [place] [phone]: Jose Manuel Rincon [facility] HospitalLactate Lttyhdoxzvtvm4616-27-62 12:24:00* Test Item Value Reference Range Interpretation Comments Lactate Dehydrogenase (test code = 454470979) 180 125-220 [facility] HospitalGroup A Streptococcus Arenie8025-49-61 10:08:00* Test Item Value Reference Range Interpretation Comments Group A Streptococcus Screen (test code = 15428-3) NEGATIVE NEG ATIVE [facility] HospitalInfluenza Virus Types A,B Antigen 2019-08-25 10:07:00* Test Item Value Reference Range Interpretation Comments Influenza Virus Types A,B Antigen (test code = 46898-5) NEGATIVE NEGATIVE [facility] Hospitalerum or plasma lactate dehydrogenase measurement (enzymatic activity/volume)2019-08-25 10:06:00* Test Item Value Reference Range Interpretation Comments Lactate Dehydrogenase (test code = 894639694) 180 125-220 [facility] HospitalBlood jxhslvi0273-02-07 09:48:00* Test Item Value Reference Range Interpretation Comments Blood Culture (test code = 11729089) NO GROWTH AFTER 5 DAYS, FINAL REPORT [facility] HospitalCHEST 2 TJIRE6105-64-00 09:34:00 [facility] [address] [place] [address] Patient Name: ASHLEE BARNETT MR #: [id number] : 1980 Age/Sex: 39/M Req #: [id number] Adm Physician: Ordered by: FLORIAN JUNIOR MD Report #: [id number] Location: ER Room/Bed: Procedure: [id number] DX/CHEST 2 VIEWS Exam Date: 08/25/19 Exam [...] MD 8 COPY TO: JASEN JUNIOR MD Influenza virus A and B antigen identification by ntlymnlkbkcvjjrwcg6143-20-35 07:50:00* Test Item Value Reference Range Interpretation Comments Influenza Virus Types A,B Antigen (test code = 99637-4) NEGATIVE NEGATIVE [facility] Hospitaltreptococcus pyogenes antigen detection in kzakfl2045-14-06 07:50:00* Test Item Value Reference Range Interpretation Comments Group A Streptococcus Screen (test code = 01367-5) NEGATIVE NEG ATIVE [facility] HospitalCD4 HELPER J-UUDDA8896-54XFHKY0536-51-77 15:09:00* Test Item Value Reference Range Interpretation [...] = WBCCD) 6.8 x10E3/uL 3.4-10.8 BASIC METABOLIC TECNS1394-10-51 05:39:00* Test Item Value Reference Range Interpretation [...] CA) 8.7 mg/dL 8.5-10.1 N BASIC METABOLIC FESDC2400-33-48 05:29:00* Test Item Value Reference Range Interpretation [...] (test code = CA) mg/dL 8.5-10.1 - [facility]2019-09-16 20:37:00 Name: ASHLEE BARNETT [facility] : 1980 Age/S: 39 / M [address] [facility] Unit #: [id number] Loc: [place] [address] Phys: Donal Yanez SCHEDULE HANGER Acct: [id number] Dis Date: Status: ADM IN PHONE #: [phone] Exam Date: 06/21/20192013 FAX #: [phone] Reason: JEROME EXAMS: CPT CODE: [id number] [facility] [address] REASON FOR EXAM: JEROME EXAM ORDER DATE: [...] Technologist: Tuan Mccormick Trnscb Date/Time: 06/21/2019 (2036) tSAHARAVTL Orig Print D/T: S: 06/21/2019 (2039) Probe: PAGE 1 Signed Report URINALYSIS NVJIUDJY5500-10-69 04:13:00* Test Item Value Reference Range Interpretation [...] MUCU) FEW #/LPF FEW Urine Source? Clean SluxlO-OFXGS2376-64-16 01:56:00* Test Item Value Reference Range Interpretation [...] skin infections -Liver cirrhosis - COMPREHENSIVE METABOLIC TORGT3435-14-68 01:51:00* Test Item Value Reference Range Interpretation [...] due to change in reagent. COMPREHENSIVE METABOLIC UUGBA6344-00-86 01:50:00* Test Item Value Reference Range Interpretation [...] code = ALKP) IUnit/L 45-117 CBC W/AUTO PWAT7357-44-91 01:30:00* Test Item Value Reference Range Interpretation [...] (test code = MDIFF) NO CBC W/AUTO EKGZ7473-82-65 01:27:00* Test Item Value Reference Range Interpretation [...] 0.0-0.2 - XR SHOULDER 2 + V BJ7380-44-97 01:06:00 FAX: Sendy Gutierrez MD [phone] [place]: St: REG Name: ASHLEE TOM [facility] : [birth year] Age/S: 39/M [address] [facility] Unit #: [id number] Loc: [place] [address] Phys: Sendy Gutierrez MD Acct: [id number] Dis Date: Status: REG ER PHONE #: [phone] Exam Date: 06/21/2019 0020 FAX #: [phone] Reason: pain EXAMS: CPT CODE: [id number] XR SHOULDER 2 + V RT [id number] HISTORY: Pain Location: C3 FINDINGS: 3 images of the right shoulder are provided. No acute fracture, dislocation, or other acute osseous abnormality is d emonstrated. IMPRESSION: 1. No acute f racture. No other acute osseous abnormality. at 0106 Reported and s igned by: Saturnino Brito MD CC: Sendy Gutierrez MD Technologist: Chichi Jarquin Trnscrd Date/Time/By: 06/21/2019 (010) : By: [email or web address] Orig Print D/T: S: 06/21/2019 (108) PAGE 1 Signed Report
== END 2020-05-13 01:00 | disposition home or self-care (01) ==
LOC: ER 05-13 00:36
DX: M25.511 Pain in right shoulder (principal); S43.401A Unspecified sprain of right shoulder joint, initial encounter; I10 Essential (primary) hypertension; B20 Human immunodeficiency virus [HIV] disease; Z98.0 Intestinal bypass and anastomosis status
CPT/HCPCS: 99283

== ENCOUNTER 2021-01-09 10:34 | Emergency (ER) | payer MEDICARE ==
[~2021-01-09] VITALS: Ht 167.6 cm; Wt 75.7 kg
[2021-01-09] MEDS ORDERED: LIDOPATCH1 EACH TOP (10:53)
== END 2021-01-09 11:10 | disposition home or self-care (01) ==
LOC: ER 11:01
DX: M79.651 Pain in right thigh (principal); I10 Essential (primary) hypertension; B20 Human immunodeficiency virus [HIV] disease; Z87.01 Personal history of pneumonia (recurrent); Z98.0 Intestinal bypass and anastomosis status
CPT/HCPCS: 99282

== ENCOUNTER 2023-02-26 22:39 | Emergency (ER) | payer OTHER, MEDICAID ==
[~2023-02-26] VITALS: Ht 167.6 cm; Wt 81.6 kg
[~2023-02-26 22:39] MED LIST changes: +LIDOPATCH1 EACH TOP
[2023-02-26] MEDS ORDERED: KETOROLAC TROMETHAMINE 60 MG/2 ML VIAL IM STA (22:56)
[2023-02-26] MEDS ORDERED: CLONIDINE HCL 0.2 MG TAB PO STA (22:56)
[2023-02-27 00:44] VITALS: BP 122/90; PULSE 71; RESP 16; TEMP 98.9; O2SAT 97
== END 2023-02-27 00:40 | disposition home or self-care (01) ==
LOC: ER 22:52
DX: M79.601 Pain in right arm (principal); X50.1XXA Overexertion from prolonged static or awkward postures, initial encounter; Y92.89 Other specified places as the place of occurrence of the external cause; I10 Essential (primary) hypertension; B20 Human immunodeficiency virus [HIV] disease
CPT/HCPCS: 73060; 73090; 93971; 99283; J1885

== ENCOUNTER 2024-04-21 23:49 | Emergency (ER) | payer MEDICAID ==
[~2024-04-21] VITALS: Ht 167.6 cm; Wt 77.1 kg
[~2024-04-21 23:49] MED LIST changes: +NAPROXEN250 MG PO
[2024-04-21 23:54] VITALS: PULSE 80; RESP 16; TEMP 97.6; O2SAT 100
[2024-04-22] MEDS ORDERED: PREDNISONE20 MG PO
[2024-04-22] MEDS ORDERED: CEPHALEXIN500 MG PO
== END 2024-04-22 00:06 | disposition home or self-care (01) ==
LOC: ER 23:54
DX: L20.9 Atopic dermatitis, unspecified (principal); I12.0 Hypertensive chronic kidney disease with stage 5 chronic kidney disease or end stage renal disease; N18.6 End stage renal disease; Z99.2 Dependence on renal dialysis; B20 Human immunodeficiency virus [HIV] disease; Z86.718 Personal history of other venous thrombosis and embolism
CPT/HCPCS: 99283

== ENCOUNTER 2024-08-09 13:09 | Emergency (ER) | payer MEDICAID ==
[~2024-08-09] VITALS: Ht 167.6 cm; Wt 77.1 kg
[~2024-08-09 13:09] MED LIST changes: +CEPHALEXIN500 MG PO; +PREDNISONE20 MG PO
[2024-08-09 13:17] VITALS: TEMP 98.5
[2024-08-09 14:23] LABS: BASOPHILS % 0.2 % (0.0-1.0); EOSINOPHILS # (AUTO) 0.1 (0.0-0.4); EOSINOPHILS % 2.3 % (0.0-6.0); HEMATOCRIT 33.7 % (38.2-49.6); HEMOGLOBIN 10.7 g/dL (14.0-18.0); LYMPHOCYTES # (AUTO) 0.9 (1.0-3.2); LYMPHOCYTES % 18.3 % (18.0-39.1); MEAN CORPUSCULAR HEMOGLOBIN 29.2 pg (28-32); MEAN CORPUSCULAR HGB CONC 31.8 g/dL (31-35); MEAN CORPUSCULAR VOLUME 91.8 fL (81-99); MONOCYTES # (AUTO) 0.4 (0.2-0.8); MONOCYTES % 8.2 % (4.4-11.3); NEUTROPHILS # (AUTO) 3.6 (2.1-6.9); NEUTROPHILS % 70.4 % (38.7-80.0); PLATELET COUNT 115 x10e3/uL (140-360); RED BLOOD COUNT 3.67 x10e6/uL (4.3-5.7); RED CELL DISTRIBUTION WIDTH 15.7 % (11.7-14.4); WHITE BLOOD COUNT 5.15 x10e3/uL (4.8-10.8)
[2024-08-09 14:41] LABS: INR 1.96; PARTIAL THROMBOPLASTIN TIME 34.1 seconds (23.8-35.5); PROTHROMBIN TIME 23.2 seconds (11.9-14.5)
[2024-08-09 14:47] LABS: ALBUMIN 3.8 g/dL (3.5-5.0); CALCIUM 9.3 mg/dL (8.4-10.2); CREATININE, SERUM 12.42 mg/dL (0.72-1.25); TOTAL PROTEIN 7.7 g/dL (6.5-8.1)
[2024-08-09] MEDS ORDERED: IOPAMIDOL 370 MG/ML 100 ML INFUS..BTL INJ ONE (14:55)
[2024-08-09 16:11] LABS: BILIRUBIN,TOTAL 0.6 mg/dL (0.2-1.2)
[2024-08-09] MEDS: PHYTONADIONE 10 MG/ML AMP SQ ONE (17:42)
[2024-08-09] MEDS ORDERED: ULTRAM 50MG50 MG PO (17:52)
[2024-08-09 18:00] VITALS: PULSE 71; RESP 16; O2SAT 100
== END 2024-08-09 18:00 | disposition home or self-care (01) ==
LOC: ER 13:18
DX: T80.89XA Other complications following infusion, transfusion and therapeutic injection, initial encounter (principal); I12.0 Hypertensive chronic kidney disease with stage 5 chronic kidney disease or end stage renal disease; N18.6 End stage renal disease; Z99.2 Dependence on renal dialysis; B20 Human immunodeficiency virus [HIV] disease; Z86.718 Personal history of other venous thrombosis and embolism
CPT/HCPCS: 36415; 73201; 80053; 85025; 85610; 85730; 93931; 99284; J3430; Q9967